=== PATIENT | female | born 1995 | race Caucasian/White ===

== ENCOUNTER 2016-09-10 17:46 | Emergency (ER) | payer OTHER ==
[2016-09-10] MEDS ORDERED: Ketorolac INJ* 60 MG/2 ML VIAL IM ONE (21:07)
[2016-09-10] MEDS ORDERED: Ondansetron ODT TAB* 4 MG SL ONE (21:07)
--- NOTE | 2016-09-10 21:31 | ED ---
Patrick Bearden Benjamin, scribed for Yony John MD on 09/10/16 at 2110 . Headache - HPI Summary HPI Summary: 20yo female c/o having migraine CAMPBELL for 3 days. States that light bothers her. Pt also reports intermittent blurry vision, N/V, and neck pain throughout the day. Pt is still nauseous. Last visit to her PCP was 1 month ago. Pt tried various OTC pain meds, but none has helped with her CAMPBELL. - History Of Current Complaint Chief Complaint: EDHeadache Stated Complaint: HEADACHE/VOMITING/LIGHT HEADED Time Seen by Provider: 09/10/16 21:04 Hx Obtained From: Patient Hx Last Menstrual Period: 10/23/13 Onset/Duration: Gradual Onset - 3 days, Started days ago - 3 days, Still Present Initially Headache Was: Moderate Currently Pain Is: Moderate Timing: Constant Character: Migraine Location of Headache: Diffuse Aggravating Factor: Bright Lights Allevating Factors: Nothing Associated Signs And Symptoms: Nausea, Vomiting, Neck Pain - Allergies/Home Medications Allergies/Adverse Reactions: Allergies Allergy/AdvReac Type Severity Reaction Status Date / Time No Known Allergies Allergy Verified 12/17/14 08:03 PMH/Surg Hx/FS Hx/Imm Hx Endocrine/Hematology History: Reports: Hx Anemia - ON IRON 04/24/12 DELIVERED BABY Denies: Hx Diabetes, Hx Thyroid Disease Cardiovascular History: Denies: Hx Hypertension Respiratory History: Reports: Hx Asthma Denies: Hx Chronic Obstructive Pulmonary Disease (COPD) GI History: Reports: Hx Gastroesophageal Reflux Disease - [place] SINCE PREVACID Denies: Hx Ulcer History: Reports: Other Problems/Disorders - recurrent uti's Sensory History: Denies: Hx Contacts or Glasses, Hx Hearing Aid Opthamlomology History: Denies: Hx Contacts or Glasses Psychiatric History: Denies: Hx Eating Disorder, Hx of Violent Episodes Against Others - Surgical History Surgery Procedure, Year, and Place: Cholecystectomy 05/2012 Hx Anesthesia Reactions: No Infectious Disease History: No Infectious Disease History: Denies: Hx Clostridium Difficile, Hx Hepatitis, Hx Human Immunodeficiency Virus (HIV), Hx of Known/Suspected MRSA, Hx Tuberculosis, Hx Known/Suspected VRE , Hx Known/Suspected VRSA, History Other Infectious Disease, Traveled Outside the [place] in Last 30 Days - Family History Known Family History: Positive: Other - anemia Negative: Cardiac Disease, Hypertension, Diabetes - Social History Occupation: Employed Full-time Lives: Alone Alcohol Use: Occasionally Substance Use Type: Reports: None Smoking Status (MU): Never Smoked Tobacco Type: Cigarettes Amount Used/How Often: 1/2 PPD Have You Smoked in the Last Year: No Review of Systems Constitutional: Negative Positive: Photophobia, Blurred Vision ENT: Negative Cardiovascular: Negative Respiratory: Negative Positive: Vomiting, Nausea Genitourinary: Negative Musculoskeletal: Negative Skin: Negative Neurological: Negative Psychological: Normal All Other Systems Reviewed And Are Negative: Yes Physical Exam Triage Information Reviewed: Yes Vital Signs On Initial Exam: Initial Vitals Temp Pulse Resp BP Pulse Ox 97.3 F 72 20 146/78 100 09/10/16 18:00 09/10/16 18:00 09/10/16 18:00 09/10/16 18:00 09/10/16 18:00 Vital Signs Reviewed: Yes Appearance: Positive: Well-Appearing, No Pain Distress Skin: Positive: Warm Head/Face: Positive: Normal Head/Face Inspection Eyes: Positive: EOMI, GOYO ENT: Positive: Hearing grossly normal Neck: Positive: Supple Respiratory/Lung Sounds: Positive: Clear to Auscultation, Breath Sounds Present Cardiovascular: Positive: RRR Abdomen Description: Positive: Nontender, Soft Bowel Sounds: Positive: Present Musculoskeletal: Positive: Strength/ROM Intact Neurological: Positive: Sensory/Motor Intact, Alert, Oriented to Person Place, Time, Normal Gait Psychiatric: Positive: Affect/Mood Appropriate Diagnostics - Vital Signs Vital Signs Temp Pulse Resp BP Pulse Ox 09/10/16 19:09 97.2 F 92 16 123/81 98 09/10/16 19:03 98.2 F 67 20 96/58 97 09/10/16 18:02 97.0 F 87 20 146/78 100 09/10/16 18:00 97.3 F 72 20 146/78 100 - Laboratory Lab Statement: Any lab studies that have been ordered have been reviewed, and results considered in the medical decision making process. Re-Evaluation - Re-Evaluation First Eval Change: Improved Headache Course/Dx - Diagnoses Provider Diagnoses: Headache Discharge - Discharge Plan Condition: Improved Disposition: HOME Patient Education Materials: Migraine Headache (ED) Forms: *Work Release Referrals: Ras Abreu MD [Primary Care Provider] - 1 Day The documentation as recorded by the Patrick ray Benjamin accurately reflects the service I personally performed and the decisions made by me, Yony John MD.
[2016-09-10] MEDS ORDERED: Morphine INJ* 4 MG/ML 1 ML SYRINGE SUBCUT ONE (22:40)
[2016-09-11 00:10] VITALS: BP 110/60
== END 2016-09-10 23:35 | disposition home or self-care (01) ==
LOC: ED 17:46
DX: R51 Headache (principal); R11.2 Nausea with vomiting, unspecified; M54.2 Cervicalgia
CPT/HCPCS: 96372; 99282; A9270-GY; J1885; J2270

== ENCOUNTER 2016-12-20 18:02 | Emergency (ER) | payer OTHER ==
[2016-12-20] MEDS ORDERED: Ibuprofen TAB* 600 MG PO ONE (18:21)
--- NOTE | 2016-12-20 19:26 | RAD ---
Indication: Left forearm pain. 2 views of left forearm demonstrates ulnar minus.. No fracture is noted. IMPRESSION: No fracture of the left forearm is noted.
--- NOTE | 2016-12-20 19:27 | RAD ---
Indication: Left arm injury. 2 views of left humerus demonstrates no fracture. No other bone or joint abnormalities identified. IMPRESSION: No fracture of the left humerus is present.
[2016-12-20] MEDS ORDERED: Bacitracin OINTMENT* 1 TUBE TOPICAL ONE (19:42)
[2016-12-20] MEDS ORDERED: oxyCODONE/Acetamin 5/325 MG* TAB PO ONE (19:42)
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
[2016-12-20 20:51] VITALS: BP 116/72
== END 2016-12-20 20:45 | disposition home or self-care (01) ==
LOC: ED 18:02
DX: S50.812A Abrasion of left forearm, initial encounter (principal); V49.9XXA Car occupant (driver) (passenger) injured in unspecified traffic accident, initial encounter; Y93.9 Activity, unspecified; Y92.9 Unspecified place or not applicable
CPT/HCPCS: 99283; A9270-GY

== ENCOUNTER 2017-04-08 23:55 | Emergency (ER) | payer OTHER ==
[2017-04-09] MEDS ORDERED: Amoxicillin/Clavulanate TAB* 500 MG PO ONE (01:42)
--- NOTE | 2017-04-09 01:44 | ED ---
Throat Pain/Nasal Congestion - HPI Summary HPI Summary: 21F presents with dental pain today. She has been having issues with her right wisdom tooth off and on for a couple weeks. She is suppose to have it extracted on 04/19 in [place]. She states the pain became 10/10 tonight and she tried ibuprofen and Tylenol without relief. She is worried that the area may be getting infected. She denies any drainage from area. She denies any fever. She denies any sore throat, SOB, or chest pain. - History of Current Complaint Chief Complaint: EDDentalPain Time Seen by Provider: 04/09/17 01:27 - Allergies/Home Medications Allergies/Adverse Reactions: Allergies Allergy/AdvReac Type Severity Reaction Status Date / Time No Known Allergies Allergy Verified 04/09/17 00:13 PMH/Surg Hx/FS Hx/Imm Hx Endocrine/Hematology History: Reports: Hx Anemia - ON IRON 04/24/12 DELIVERED BABY Denies: Hx Diabetes, Hx Thyroid Disease Cardiovascular History: Denies: Hx Hypertension Respiratory History: Reports: Hx Asthma Denies: Hx Chronic Obstructive Pulmonary Disease (COPD) GI History: Reports: Hx Gastroesophageal Reflux Disease - [place] SINCE PREVACID Denies: Hx Ulcer History: Reports: Other Problems/Disorders - recurrent uti's Sensory History: Denies: Hx Contacts or Glasses, Hx Hearing Aid Opthamlomology History: Denies: Hx Contacts or Glasses Psychiatric History: Denies: Hx Eating Disorder, Hx of Violent Episodes Against Others - Surgical History Surgery Procedure, Year, and Place: Cholecystectomy 05/2012 Hx Anesthesia Reactions: No - Immunization History Date of Tetanus Vaccine: 2012 Infectious Disease History: No Infectious Disease History: Denies: Hx Clostridium Difficile, Hx Hepatitis, Hx Human Immunodeficiency Virus (HIV), Hx of Known/Suspected MRSA, Hx Tuberculosis, Hx Known/Suspected VRE , Hx Known/Suspected VRSA, History Other Infectious Disease, Traveled Outside the [place] in Last 30 Days - Family History Known Family History: Positive: Other - anemia Negative: Cardiac Disease, Hypertension, Diabetes - Social History Alcohol Use: Occasionally Substance Use Type: Reports: Marijuana Substance Use Comment - Amount & Last Used: not recently Smoking Status (MU): Former Smoker Type: Cigarettes Amount Used/How Often: 1/2 PPD Have You Smoked in the Last Year: No Review of Systems Negative: Fever Positive: Dental Pain Negative: Chest Pain Negative: Shortness Of Breath All Other Systems Reviewed And Are Negative: Yes Physical Exam Triage Information Reviewed: Yes Vital Signs On Initial Exam: Initial Vitals Temp Pulse Resp BP Pulse Ox 97.9 F 95 16 131/76 98 04/09/17 00:05 04/09/17 00:05 04/09/17 00:05 04/09/17 00:05 04/09/17 00:05 Vital Signs Reviewed: Yes Appearance: Positive: Well-Appearing Skin: Positive: Warm, Dry Head/Face: Positive: Normal Head/Face Inspection Eyes: Positive: Normal, EOMI, GOYO, Conjunctiva Clear ENT: Positive: Normal ENT inspection, Pharynx normal, TMs normal Dental: Positive: Percussion Tenderness @ - 32. Negative: Gross Decay/Caries @ , Abscess @ Respiratory/Lung Sounds: Positive: Clear to Auscultation, Breath Sounds Present Cardiovascular: Positive: Normal, RRR Musculoskeletal: Positive: Normal Neurological: Positive: Normal Psychiatric: Positive: Normal Diagnostics - Vital Signs Vital Signs Temp Pulse Resp BP Pulse Ox 04/09/17 00:05 97.9 F 95 16 131/76 98 - Laboratory Lab Statement: Any lab studies that have been ordered have been reviewed, and results considered in the medical decision making process. EENT Course/Dx - Course Course Of Treatment: 21F presents with dental pain today. She has been having issues with her right wisdom tooth off and on for a couple weeks. She is suppose to have it extracted on 04/19 in [place]. She states the pain became 10 /10 tonight and she tried ibuprofen and Tylenol without relief. She is worried that the area may be getting infected. She denies any drainage from area. She denies any fever. She denies any sore throat, SOB, or chest pain. on exam has tenderness at 32. no lymphadenopathy. will place on augmentin for potential infection and will give short script of narcotic. patient understand and agrees with plan. - Differential Diagnoses Differential Diagnoses: Dental Abscess, Dental Caries, Fractured Tooth - Diagnoses Provider Diagnoses: Dental infection Discharge - Discharge Plan Condition: Good Disposition: HOME Prescriptions: Amoxicillin/Clavulanate TAB* [Augmentin TAB 500 mg*] 500 mg PO BID #19 tab oxyCODONE/Acetamin 5/325 MG* [Percocet 5/325 TAB*] 1 tab PO Q6H PRN #6 tab MDD 4 PRN Reason: Pain Patient Education Materials: Toothache (ED) Referrals: Ras Abreu MD [Primary Care Provider] - Additional Instructions: Call dentist tomorrow to inform of visit and antibiotic usage Take antibiotic twice a day Take ibuprofen or Tylenol for pain every 6 hours, use narcotic for break through pain Return to ED if develop any new or worsening symptoms Images - Images Dental: 1 - pain
[2017-04-09] MEDS ORDERED: oxyCODONE/Acetamin 5/325 MG* TAB PO ONE (01:46)
[2017-04-09 02:13] VITALS: BP 137/83
== END 2017-04-09 02:10 | disposition home or self-care (01) ==
LOC: ED 23:55
DX: K04.7 Periapical abscess without sinus (principal); K08.89 Other specified disorders of teeth and supporting structures; Z87.891 Personal history of nicotine dependence
CPT/HCPCS: 99282; A9270-GY

== ENCOUNTER 2017-06-17 13:29 | Emergency (ER) | payer OTHER ==
[2017-06-17 14:11] VITALS: BP 123/82
--- NOTE | 2017-06-17 14:52 | UC ---
Rashid Bearden Angela, scribed for Cameron Castaneda MD on 06/17/17 at 1418 . General HPI - HPI Summary HPI Summary: This pt is a 21 y/o female presenting to [facility] c/o nasal congestion and sinus pain for the last 15 days. Pt reports that she has had runny nose with green discharge and intermittent fevers for the last 15 days. She states her symptoms have been worsening so she decided to come to the ED. PMHx: asthma. Pt denies tobacco use but does use alcohol occasionally. - History of Current Complaint Chief Complaint: UCGeneralIllness Stated Complaint: COUGH,CONGESTED Time Seen by Provider: 06/17/17 14:12 Hx Obtained From: Patient Hx Last Menstrual Period: 06/17/17 Onset/Duration: Gradual Onset, Lasting Days, Still Present Timing: Constant Current Severity: Severe Pain Intensity: 7 Pain Location at: sinus Aggravating: nothing Alleviating: nothing Associated Signs & Symptoms: Positive: Fever - intermittent, Other - POS: runny nose, sinus pain, nasal congestion. Negative: Abdominal Pain, Chest Pain, SOB - Allergy/Home Medications Allergies/Adverse Reactions: Allergies Allergy/AdvReac Type Severity Reaction Status Date / Time No Known Allergies Allergy Verified 06/17/17 14:06 Home Medications: Home Medications D-Methorphan/PE/Acetaminophen [Vicks Dayquil Liquid] 30 ml PO Q6HR PRN 06/17/17 [History Confirmed 06/17/17] PMH/Surg Hx/FS Hx/Imm Hx Other Endocrine History: DENIES: diabetes Other Cardiovascular History: DENIES: HTN Respiratory History: Asthma - Surgical History Surgical History: Yes Surgery Procedure, Year, and Place: Cholecystectomy 05/2012 - Family History Known Family History: Positive: Other - anemia Negative: Cardiac Disease, Hypertension, Diabetes - Social History Alcohol Use: Occasionally Substance Use Type: None Substance Use Comment - Amount & Last Used: not recently Smoking Status (MU): Former Smoker Type: Cigarettes Amount Used/How Often: 1/2 PPD Have You Smoked in the Last Year: No Household Exposure Type: Cigarettes - Immunization History Most Recent Influenza Vaccination: out of stock in hospital Most Recent Tetanus Shot: up to date Most Recent Pneumonia Vaccination: declined Vaccination Up to Date: Yes Review of Systems Constitutional: Fever - intermittent Skin: Negative Eyes: Negative ENT: Nasal Discharge, Sinus Congestion, Sinus Pain/Tenderness Respiratory: Negative Cardiovascular: Negative Gastrointestinal: Negative Genitourinary: Negative Motor: Negative Neurovascular: Negative Musculoskeletal: Negative Neurological: Negative Psychological: Negative Is Patient Immunocompromised?: No All Other Systems Reviewed And Are Negative: Yes Physical Exam - Summary Physical Exam Summary: VITAL SIGNS: Reviewed. GENERAL: Patient is a well-developed and nourished female who is lying comfortable in the stretcher. Patient is not in any acute respiratory distress. HEAD AND FACE: Normocephalic. Pt has runny nose with yellow discharge. There is positive maxillary sinus tenderness, especially in the right maxillary sinus. Positive nasal congestion. EYES: PERRLA, EOMI x 2. EARS: Hearing grossly intact. MOUTH: Oropharynx within normal limits. NECK: Supple, trachea is midline, no adenopathy, no JVD, no carotid bruit. CHEST: Symmetric, no tenderness at palpation LUNGS: Clear to auscultation bilaterally. No wheezing or crackles. CVS: Regular rate and rhythm, S1 and S2 present, no murmurs or gallops appreciated. ABDOMEN: Soft, non-tender. Bowel sounds are normal. No abdominal abnormal pulsations. EXTREMITIES: Full ROM in all major joints, no edema, no cyanosis or clubbing. NEURO: Alert and oriented x 3. No acute neurological deficits. Speech is normal and follows commands. SKIN: Dry and warm Triage Information Reviewed: Yes Vital Signs: Initial Vital Signs Temp 97.1 F 06/17/17 14:07 Pulse 98 06/17/17 14:07 Resp 18 06/17/17 14:07 BP 123/82 06/17/17 14:07 Pulse Ox 99 06/17/17 14:07 Vital Signs Reviewed: Yes Course/Dx - Course Course Of Treatment: This pt is a 21 y/o female presenting to [facility] c/o nasal congestion and sinus pain for the last 15 days. Pt reports that she has had runny nose with green discharge and intermittent fevers for the last 15 days. She states her symptoms have been worsening so she decided to come to the ED. PMHx: asthma. Pt denies tobacco use but does use alcohol occasionally. I discussed all the findings and test results with the patient. Pt was instructed to return to the urgent care or go to ER immediately if any of the symptoms return or worsens. Plan of care was discussed with the patient and pt understands and agrees. All questions were answered to patient satisfaction. There were no further complaints or concerns. Pt will be discharged to home with follow up from PCP. She will be givena prescription for Augmentin and Flonase. Pt is hemodynamically stable, alert and oriented x3. - Differential Dx - Multi-Symptom Provider Diagnoses: Sinusitis Discharge - Sign-Out/Discharge Documenting (check all that apply): Discharge - Discharge Plan Condition: Stable Disposition: HOME Prescriptions: Amoxicillin/Clavulanate TAB* [Augmentin TAB 875*] 875 mg PO BID #20 tab Fluticasone NASAL SPRAY 50MCG* [Flonase NASAL SPRAY 50MCG*] 2 spray BOTH NARES DAILY #1 btl Patient Education Materials: Sinusitis (ED) Referrals: Ras Abreu MD [Primary Care Provider] - Additional Instructions: FOLLOW UP WITH YOUR PRIMARY CARE PROVIDER WITHIN ONE WEEK FOR HIGH BLOOD PRESSURE NOTED TODAY. RETURN TO URGENT CARE OR THE ED FOR ANY WORSENING OR NEW SYMPTOMS. The documentation as recorded by the Rashid ray Angela accurately reflects the service I personally performed and the decisions made by Leonel shell Walter, MD.
== END 2017-06-17 14:24 | disposition home or self-care (01) ==
LOC: UCEAST 13:29
DX: J32.9 Chronic sinusitis, unspecified (principal); Z87.891 Personal history of nicotine dependence
CPT/HCPCS: 99212; G0463

== ENCOUNTER 2017-08-23 09:59 | Emergency (ER) | payer OTHER ==
[2017-08-23] MEDS ORDERED: Metoclopramide IV* 5 MG/ML 2 ML VIAL IV ONE (11:00)
[2017-08-23] MEDS ORDERED: NS 0.9% 1000 ML* 1,000 ML IV ONE (11:00)
[2017-08-23 11:37] LABS: Hematocrit 38 % (35-47); Hemoglobin 12.4 g/dl (12.0-16.0); Mean Corpuscular HGB Conc 32 g/dl (31-36); Mean Corpuscular Hemoglobin 24 pg (27-31); Mean Corpuscular Volume 74 fL (80-97); Mean Platelet Volume 8.3 um3 (7.4-10.4); Platelet Count 203 10^3/ul (150-450); Red Cell Distribution Width 16 % (10.5-15); White Blood Count 9.6 10^3/ul (3.5-10.8)
[2017-08-23 11:52] LABS: EGFR Non-African American 117.1 (>60)
[2017-08-23 12:01] LABS: ABS Basophils 0 10^3/ul (0-0.2); ABS Eosinophils 0 10^3/ul (0-0.6); ABS Lymphocytes 1.1 10^3/ul (1.0-4.8); ABS Monocytes 0.3 10^3/ul (0-0.8); ABS Neutrophils 8.1 10^3/ul (1.5-7.7); ABS Nucleated RBC 0 10^3/ul; Eosinophil % 0.4 % (0-6); Lymphocyte % 11.2 % (25-47); Nucleated Red Blood Cells % 0
--- NOTE | 2017-08-23 12:11 | ED ---
- HPI Summary HPI Summary: Patient is a with 2 living children 29-year-old female who is 10 weeks presenting to the ED with nausea, vomiting, diarrhea 2 days. She states her other children have the stomach bug with similar symptoms. She has taken at home Zofran without relief. She states she is unable to eat or drink without vomiting. Denies hematemesis. Denies any abdominal pain, vaginal discharge, bleeding, back pain or UTI symptoms. Diarrhea is approximately 1-2 times daily over the past 2 days and is watery stool. Vomiting is several times per day after trying to eat or drink. - History of Current Complaint Chief Complaint: EDNauseaVomitDiarrh Stated Complaint: N/V/D/HEADACHE/ Time Seen by Provider: 08/23/17 10:59 Hx Obtained From: Patient Onset/Duration: Started Hours Ago Timing: Constant Severity: Moderate Current Severity: Moderate Pain Intensity: 7 Location of Pain: None Character: None Associated Signs and Symptoms: Positive: Negative - Assessment Hx Now: No SAB: 2 IEA: 0 - Additional Pertinent History Maternal Blood Type and Rh: O Positive - Allergies/Home Medications Allergies/Adverse Reactions: Allergies Allergy/AdvReac Type Severity Reaction Status Date / Time No Known Allergies Allergy Verified 08/23/17 10:03 Home Medications: Home Medications Vitamin TAB* 1 tab PO DAILY 08/23/17 [History Confirmed 08/23/17] PMH/Surg Hx/FS Hx/Imm Hx Previously Healthy: Yes Endocrine/Hematology History: Reports: Hx Anemia - ON IRON 04/24/12 DELIVERED BABY Denies: Hx Diabetes, Hx Thyroid Disease Cardiovascular History: Denies: Hx Hypertension Respiratory History: Reports: Hx Asthma Denies: Hx Chronic Obstructive Pulmonary Disease (COPD) GI History: Reports: Hx Gastroesophageal Reflux Disease - [place] SINCE PREVACID Denies: Hx Ulcer History: Reports: Other Problems/Disorders - recurrent uti's Sensory History: Denies: Hx Contacts or Glasses, Hx Hearing Aid Opthamlomology History: Denies: Hx Contacts or Glasses Psychiatric History: Denies: Hx Eating Disorder, Hx of Violent Episodes Against Others - Surgical History Surgery Procedure, Year, and Place: Cholecystectomy 05/2012 Hx Anesthesia Reactions: No - Immunization History Date of Tetanus Vaccine: 2012 Hx Pertussis Vaccination: No Immunizations Up to Date: Unable to Obtain/Confirm Infectious Disease History: No Infectious Disease History: Denies: Hx Clostridium Difficile, Hx Hepatitis, Hx Human Immunodeficiency Virus (HIV), Hx of Known/Suspected MRSA, Hx Tuberculosis, Hx Known/Suspected VRE , Hx Known/Suspected VRSA, History Other Infectious Disease, Traveled Outside the [place] in Last 30 Days - Family History Known Family History: Positive: Other - anemia Negative: Cardiac Disease, Hypertension, Diabetes - Social History Occupation: Unemployed Lives: With Family Alcohol Use: Occasionally Hx Substance Use: No Substance Use Type: Reports: None Substance Use Comment - Amount & Last Used: not recently Hx Tobacco Use: Yes Smoking Status (MU): Former Smoker Type: Cigarettes Amount Used/How Often: 1/2 PPD Have You Smoked in the Last Year: No Review of Systems Constitutional: Negative Negative: Fever, Chills, Fatigue, Skin Diaphoresis Cardiovascular: Negative Respiratory: Negative Positive: Vomiting, Diarrhea, Nausea. Negative: Abdominal Pain Genitourinary: Negative Positive: no symptoms reported, see HPI Musculoskeletal: Negative Skin: Negative Neurological: Negative All Other Systems Reviewed And Are Negative: Yes Physical Exam - Physical Exam Triage Information Reviewed: Yes Vital Signs Reviewed: Yes Appearance: Positive: Well-Appearing, Well-Nourished Skin: Positive: Warm, Skin Color Reflects Adequate Perfusion Head/Face: Positive: Normal Head/Face Inspection Eyes: Positive: EOMI, GOYO, Conjunctiva Clear Neck: Positive: Supple Respiratory/Lung Sounds: Positive: Clear to Auscultation, Breath Sounds Present Cardiovascular: Positive: Normal, RRR, Pulses are Symmetrical in both Upper and Lower Extremities Abdomen Description: Positive: Nontender, No Organomegaly, Soft Bowel Sounds: Positive: Present Musculoskeletal: Positive: Normal, Strength/ROM Intact Neurological: Positive: Sensory/Motor Intact, Alert, Oriented to Person Place, Time, Speech Normal Psychiatric: Positive: Normal, Affect/Mood Appropriate - Car[place] Coma Scale Eye: 4 - Spontaneous - Vaginal Assessment Presentation Comment: No exam indicated or requested by [facility] Diagnostics - Vital Signs Vital Signs Temp Pulse Resp BP Pulse Ox 08/23/17 11:37 102/56 08/23/17 11:02 66 99 08/23/17 11:01 69 121/70 98 08/23/17 10:04 97.1 F 86 16 108/72 99 - Laboratory Lab Results: Lab Results 08/23/17 08/23/17 08/23/17 Range/Units 11:13 11:13 11:13 WBC 9.6 (3.5-10.8) 10^3/ul RBC 5.20 (4.0-5.4) 10^6/ul Hgb 12.4 (12.0-16.0) g/dl Hct 38 (35-47) % MCV 74 L (80-97) fL MCH 24 L (27-31) pg MCHC 32 (31-36) g/dl RDW 16 H (10.5-15) % Plt Count 203 (150-450) 10^3/ul MPV 8.3 (7.4-10.4) um3 Neut % (Auto) 84.6 H (38-83) % Lymph % (Auto) 11.2 L (25-47) % [place] % (Auto) 3.3 (0-7) % Eos % (Auto) 0.4 (0-6) % Baso % (Auto) 0.5 (0-2) % Absolute Neuts (auto) 8.1 H (1.5-7.7) 10^3/ul Absolute Lymphs (auto) 1.1 (1.0-4.8) 10^3/ul Absolute Monos (auto) 0.3 (0-0.8) 10^3/ul Absolute Eos (auto) 0 (0-0.6) 10^3/ul Absolute Basos (auto) 0 (0-0.2) 10^3/ul Absolute Nucleated RBC 0 10^3/ul Nucleated RBC % 0 Sodium 133 L (139-145) mmol/L Potassium 3.8 (3.5-5.0) mmol/L Chloride 103 (101-111) mmol/L Carbon Dioxide 23 (22-32) mmol/L Anion Gap 7 (2-11) mmol/L BUN 6 (6-24) mg/dL Creatinine 0.64 (0.51-0.95) mg/dL Est GFR ( Amer) 150.6 (>60) Est GFR (Non-Af Amer) 117.1 (>60) BUN/Creatinine Ratio 9.4 (8-20) Glucose 93 (70-100) mg/dL Lactic Acid 0.9 (0.5-2.0) mmol/L Calcium 9.0 (8.6-10.3) mg/dL Total Bilirubin 0.40 (0.2-1.0) mg/dL AST 11 L (13-39) U/L ALT 10 (7-52) U/L Alkaline Phosphatase 74 (34-104) U/L Total Protein 7.6 (6.4-8.9) g/dL Albumin 4.0 (3.2-5.2) g/dL Globulin 3.6 (2-4) g/dL Albumin/Globulin Ratio 1.1 (1-3) Beta HCG, Quant Pending Result Diagrams: 08/23/17 11:13 08/23/17 11:13 Lab Statement: Any lab studies that have been ordered have been reviewed, and results considered in the medical decision making process. Course/Dx - Course Course Of Treatment: During the course treatment, the patient is given Reglan 10 mg IV and fluids. Labs obtained which are unremarkable. She states she feels better after fluids and Reglan and will be discharged home with prescriptions for Reglan and Zofran. She will follow-up with [facility]. - Diagnoses Provider Diagnoses: Nausea & vomiting Discharge - Sign-Out/Discharge Documenting (check all that apply): Discharge/Admit/Transfer - Discharge Plan Condition: Stable Disposition: HOME Prescriptions: Metoclopramide TAB* [Reglan TAB*] 10 mg PO Q6H PRN #15 tab PRN Reason: Nausea Ondansetron ODT TAB* [Zofran 4 MG Odt TAB*] 4 mg PO Q6H PRN #12 tab.odt MDD 4 PRN Reason: Nausea Patient Education Materials: Nausea and Vomiting in (ED) Referrals: Ras Abreu MD [Primary Care Provider] - Additional Instructions: Relgan up to four times daily as needed for nausea/vomiting in For symptoms not well controlled with reglan, take zofran as prescribed For any worsening symptoms - follow up with your OBGYN - Billing Disposition and Condition Condition: STABLE Disposition: HOME
[2017-08-23 13:08] VITALS: BP 109/67
== END 2017-08-23 13:06 | disposition home or self-care (01) ==
LOC: ED 09:59
DX: O21.0 Mild hyperemesis gravidarum (principal); Z3A.10 10 weeks gestation of pregnancy; D64.9 Anemia, unspecified; J45.909 Unspecified asthma, uncomplicated; K21.9 Gastro-esophageal reflux disease without esophagitis; Z90.49 Acquired absence of other specified parts of digestive tract; Z87.891 Personal history of nicotine dependence
CPT/HCPCS: 36415; 80053; 83605; 84702; 85025; 96374; 99282; J2765

== ENCOUNTER 2017-09-23 09:39 | Emergency (ER) | payer OTHER ==
[2017-09-23] MEDS ORDERED: diPHENhydraMINE IV* 50 MG/ML 1 ml VIAL (BENADRYL) IV ONE (09:53)
[2017-09-23] MEDS ORDERED: NS 0.9% 1000 ML* 1,000 ML IV ONE (09:53)
[2017-09-23] MEDS ORDERED: Metoclopramide IV* 5 MG/ML 2 ML VIAL IV SLOW PU ONE (09:53)
--- NOTE | 2017-09-23 10:14 | ED ---
GI/ HPI - HPI Summary HPI Summary: 21F at 14 weeks presents with nausea vomiting diarrhea for the past 3 days. She states that her children have been diagnosed with [id number]-kbli-[id number]- mouth. She states he's been having fevers. She's been taking cold medication. She has been having headaches that she has been taking excerdrin for. She has history of headaches and states that this is unchanged from previous headaches. States she is dizzy when she stands up quickly. She's not able to keep anything down. She has tried Reglan. States she her morning sickness had resolved prior to this and she does not believe it is morning sickness. No vaginal discharge. No abdominal pain. No chest pain shortness breath. No sore throat. No rash on the body. Has no medical conditions. - History of Current Complaint Chief Complaint: EDNauseaVomitDiarrh Time Seen by Provider: 09/23/17 09:52 Stated Complaint: VOMITING/14WKS PREG Hx Last Menstrual Period: 06/17/17 Pain Intensity: 5 - Allergy/Home Medications Allergies/Adverse Reactions: Allergies Allergy/AdvReac Type Severity Reaction Status Date / Time No Known Allergies Allergy Verified 08/23/17 10:03 Home Medications: Home Medications Ferrous Gluconate [Iron] 50 mg PO DAILY 09/23/17 [History Confirmed 09/23/17] Vitamin TAB* 1 tab PO DAILY 09/23/17 [History Confirmed 09/23/17] PMH/Surg Hx/FS Hx/Imm Hx Endocrine/Hematology History: Reports: Hx Anemia - ON IRON 04/24/12 DELIVERED BABY Denies: Hx Diabetes, Hx Thyroid Disease Cardiovascular History: Denies: Hx Hypertension Respiratory History: Reports: Hx Asthma Denies: Hx Chronic Obstructive Pulmonary Disease (COPD) GI History: Reports: Hx Gastroesophageal Reflux Disease - [place] SINCE PREVACID Denies: Hx Ulcer History: Reports: Other Problems/Disorders - recurrent uti's Sensory History: Denies: Hx Contacts or Glasses, Hx Hearing Aid Opthamlomology History: Denies: Hx Contacts or Glasses Psychiatric History: Denies: Hx Eating Disorder, Hx of Violent Episodes Against Others - Surgical History Surgery Procedure, Year, and Place: Cholecystectomy 05/2012 Hx Anesthesia Reactions: No - Immunization History Date of Tetanus Vaccine: 2012 Infectious Disease History: No Infectious Disease History: Denies: Hx Clostridium Difficile, Hx Hepatitis, Hx Human Immunodeficiency Virus (HIV), Hx of Known/Suspected MRSA, Hx Tuberculosis, Hx Known/Suspected VRE , Hx Known/Suspected VRSA, History Other Infectious Disease, Traveled Outside the [place] in Last 30 Days - Family History Known Family History: Positive: Other - anemia Negative: Cardiac Disease, Hypertension, Diabetes - Social History Alcohol Use: Occasionally Hx Substance Use: No Substance Use Type: Reports: None Substance Use Comment - Amount & Last Used: not recently Hx Tobacco Use: Yes Smoking Status (MU): Former Smoker Type: Cigarettes Amount Used/How Often: 1/2 PPD Have You Smoked in the Last Year: No Review of Systems Positive: Fever Negative: Chest Pain Negative: Shortness Of Breath Positive: Vomiting, Diarrhea, Nausea. Negative: Abdominal Pain All Other Systems Reviewed And Are Negative: Yes Physical Exam Triage Information Reviewed: Yes Vital Signs On Initial Exam: Initial Vitals Temp Pulse Resp BP Pulse Ox 98.2 F 87 16 118/69 98 09/23/17 09:47 09/23/17 09:47 09/23/17 09:47 09/23/17 09:47 09/23/17 09:47 Vital Signs Reviewed: Yes Appearance: Positive: Well-Appearing Skin: Positive: Warm, Dry Head/Face: Positive: Normal Head/Face Inspection Eyes: Positive: Normal, EOMI, GOYO, Conjunctiva Clear ENT: Positive: Normal ENT inspection, Pharynx normal, TMs normal Respiratory/Lung Sounds: Positive: Clear to Auscultation, Breath Sounds Present Cardiovascular: Positive: Normal, RRR Abdomen Description: Positive: Nontender, Soft Bowel Sounds: Positive: Present Musculoskeletal: Positive: Normal Neurological: Positive: Normal Psychiatric: Positive: Normal Diagnostics - Vital Signs Vital Signs Temp Pulse Resp BP Pulse Ox 09/23/17 09:47 98.2 F 87 16 118/69 98 - Laboratory Result Diagrams: 09/23/17 10:05 09/23/17 10:05 Lab Statement: Any lab studies that have been ordered have been reviewed, and results considered in the medical decision making process. Re-Evaluation - Re-Evaluation First Eval Re-Evaluation Time: 12:27 Change: Improved Comment: hungry now GIGU Course/Dx - Course Course Of Treatment: 21F at 14 weeks presents with nausea vomiting diarrhea for the past 3 days. She states that her children have been diagnosed with [id number]-sjjw-[id number]-mouth. She states he's been having fevers. She's been taking cold medication. She has been having headaches that she has been taking excerdrin for. She has history of headaches and states that this is unchanged from previous headaches. States she is dizzy when she stands up quickly. She' s not able to keep anything down. She has tried Reglan. States she her morning sickness had resolved prior to this and she does not believe it is morning sickness. No vaginal discharge. No abdominal pain. No chest pain shortness breath. No sore throat. No rash on the body. Has no medical conditions. On exam lungs clear to auscultation. Nontender abdomen. white blood cell count normal. hr 150-160s. electrolyes normal.gave fluids and reglan and feeling better. will discharge with reglan and zofran for intense vomiting. patient understand and agrees with plan. - Diagnoses Differential Diagnoses - Female: Gastroenteritis (Viral), Gastroenteritis ( Bacterial), Urinary Tract Infection, Vomiting Provider Diagnoses: , Nausea vomiting and diarrhea Discharge - Sign-Out/Discharge Documenting (check all that apply): Discharge/Admit/Transfer - Discharge Plan Condition: Good Disposition: HOME Prescriptions: Metoclopramide TAB* [Reglan TAB*] 5 mg PO Q6H #20 tab Ondansetron ODT TAB* [Zofran 4 MG Odt TAB*] 4 mg PO Q6H PRN #5 tab.odt PRN Reason: Nausea Patient Education Materials: Acute Nausea and Vomiting (ED) Referrals: Ras Abreu MD [Primary Care Provider] - Additional Instructions: Can take reglan every 6 hours as needed for nausea, use zofran every 6 hours sparingly Drink small amounts of fluid as tolerated When able to eat follow BRAT diet: Bananas, rice, applesauce, toast Take Tylenol for pain as needed every 6 hours Follow up with ob within 5 days Return to ED if develop fever that does not respond to Tylenol, severe abdominal pain, or any new or worsening symptoms - Billing Disposition and Condition Condition: GOOD Disposition: Home
[2017-09-23 10:21] LABS: ABS Basophils 0.1 10^3/ul (0-0.2); ABS Eosinophils 0 10^3/ul (0-0.6); ABS Lymphocytes 1.2 10^3/ul (1.0-4.8); ABS Monocytes 0.3 10^3/ul (0-0.8); ABS Neutrophils 6.5 10^3/ul (1.5-7.7); ABS Nucleated RBC 0 10^3/ul; Eosinophil % 0.4 % (0-6); Hematocrit 35 % (35-47); Hemoglobin 11.5 g/dl (12.0-16.0); Lymphocyte % 14.9 % (25-47); Mean Corpuscular HGB Conc 33 g/dl (31-36); Mean Corpuscular Hemoglobin 25 pg (27-31); Mean Corpuscular Volume 75 fL (80-97); Mean Platelet Volume 8.4 um3 (7.4-10.4); Nucleated Red Blood Cells % 0; Platelet Count 178 10^3/ul (150-450); Red Blood Count 4.67 10^6/ul (4.00-5.40); Red Cell Distribution Width 17 % (10.5-15); White Blood Count 8.1 10^3/ul (3.5-10.8)
[2017-09-23 10:37] LABS: EGFR Non-African American 123.8 (>60)
[2017-09-23 13:28] VITALS: BP 104/59
== END 2017-09-23 13:29 | disposition home or self-care (01) ==
LOC: ED 09:39
DX: O21.9 Vomiting of pregnancy, unspecified (principal); Z3A.14 14 weeks gestation of pregnancy; R11.2 Nausea with vomiting, unspecified; R19.7 Diarrhea, unspecified; Z87.891 Personal history of nicotine dependence
CPT/HCPCS: 36415; 80053; 83690; 83735; 85025; 86140; 96374; 96375; 99283; J1200; J2765

== ENCOUNTER 2017-10-18 11:34 | Emergency (ER) | payer OTHER ==
[2017-10-18 12:19] LABS: Urine Appearance Cloudy; Urine Blood Negative (Negative); Urine Color Amber; Urine Ketones Negative (Negative); Urine Protein 1+(30 mg/dL) (Negative); Urine Red Blood Cell 1+(3-5/hpf) (Absent); Urine Specific Gravity 1.023 (1.010-1.030); Urine Urobilinogen Negative (Negative); Urine White Blood Cell Trace(0-5/hpf) (Absent)
[2017-10-18] MEDS ORDERED: Acetaminophen TAB* 325 MG PO ONE (13:35)
[2017-10-18] MEDS ORDERED: NS 0.9% 1000 ML* 1,000 ML IV ONE ×2 (13:35→14:01)
--- NOTE | 2017-10-18 13:44 | ED ---
Abdominal Pain/Female - HPI Summary HPI Summary: This is flor Riojas documenting for attending Cameron Castaneda MD. This patient is a 21 year old F presenting to ED with a chief complaint of lower abdominal pain since 000 last night. The patient is 18 weeks . A2. The CC is described as cramping. The patient rates the pain 6/10 in severity for the CAMPBELL and 8/10 for the abdominal pain. Symptoms aggravated by nothing. Symptoms alleviated by nothing. Patient reports CAMPBELL (1 week, alleviated slightly since onset), nausea, vomiting, chills, diaphoresis, and light sensitivity. Patient denies vaginal bleeding, unusual vaginal discharge, diarrhea, constipation, fever, neck pain, blurred vision, and burning with urination. She sees the [facility]. - History of Current Complaint Chief Complaint: EDOBProblems Stated Complaint: ABD PAIN/HEADACHE Time Seen by Provider: 10/18/17 13:23 Hx Obtained From: Patient Hx Last Menstrual Period: 06/17/17 Onset/Duration: Sudden Onset, Lasting Hours - since 0000 last night Timing: Hours - since 0000 last night Severity Initially: Moderate Severity Currently: Moderate Pain Intensity: 6 Pain Scale Used: 0-10 Numeric - pain is for the CAMPBELL, 8/10 for the abdominal pain Location: Other - lower abdominal pain Character: Cramping Aggravating Factor(s): Nothing Alleviating Factor(s): Nothing Associated Signs and Symptoms: Positive: Other: - Patient reports CAMPBELL (1 week, alleviated slightly since onset), nausea, vomiting, chills, diaphoresis, and light sensitivity. Patient denies vaginal bleeding, unusual vaginal discharge, diarrhea, constipation, fever, neck pain, blurred vision, and burning with urination. Allergies/Adverse Reactions: Allergies Allergy/AdvReac Type Severity Reaction Status Date / Time No Known Allergies Allergy Verified 08/23/17 10:03 PMH/Surg Hx/FS Hx/Imm Hx Endocrine/Hematology History: Reports: Hx Anemia - ON IRON 04/24/12 DELIVERED BABY Denies: Hx Diabetes, Hx Thyroid Disease Cardiovascular History: Denies: Hx Hypertension Respiratory History: Reports: Hx Asthma Denies: Hx Chronic Obstructive Pulmonary Disease (COPD) GI History: Reports: Hx Gastroesophageal Reflux Disease - [place] SINCE PREVACID Denies: Hx Ulcer History: Reports: Other Problems/Disorders - recurrent uti's Sensory History: Denies: Hx Contacts or Glasses, Hx Hearing Aid Opthamlomology History: Denies: Hx Contacts or Glasses Psychiatric History: Denies: Hx Eating Disorder, Hx of Violent Episodes Against Others - Surgical History Surgery Procedure, Year, and Place: Cholecystectomy 05/2012 Hx Anesthesia Reactions: No - Immunization History Date of Tetanus Vaccine: 2012 Infectious Disease History: No Infectious Disease History: Denies: Hx Clostridium Difficile, Hx Hepatitis, Hx Human Immunodeficiency Virus (HIV), Hx of Known/Suspected MRSA, Hx Tuberculosis, Hx Known/Suspected VRE , Hx Known/Suspected VRSA, History Other Infectious Disease, Traveled Outside the [place] in Last 30 Days - Family History Known Family History: Positive: Other - anemia Negative: Cardiac Disease, Hypertension, Diabetes - Social History Alcohol Use: Occasionally Hx Substance Use: No Substance Use Type: Reports: None Substance Use Comment - Amount & Last Used: not recently Hx Tobacco Use: Yes Smoking Status (MU): Former Smoker Type: Cigarettes Amount Used/How Often: 1/2 PPD Have You Smoked in the Last Year: No Review of Systems Positive: Chills, Skin Diaphoresis. Negative: Fever Positive: Other - light sensitivity. Negative: Blurred Vision Positive: Other - denies neck pain Positive: Abdominal Pain - lower abdominal pain with cramping, Vomiting, Nausea , Other - denies constipation. Negative: Diarrhea Positive: other - denies vaginal bleeding or unusual vaginal discharge. Negative: burning Positive: Headache - 1 week, alleviated slightly since onset All Other Systems Reviewed And Are Negative: Yes Physical Exam - Summary Physical Exam Summary: VITAL SIGNS: Reviewed. GENERAL: Patient is a well-developed and nourished FEMALE who is lying comfortable in the stretcher. Patient is not in any acute respiratory distress. HEAD AND FACE: No signs of trauma. No ecchymosis, hematomas or skull depressions. No sinus tenderness. EYES: PERRLA, EOMI x 2, No injected conjunctiva, no nystagmus. EARS: Hearing grossly intact. Ear canals and tympanic membranes are within normal limits. MOUTH: Oropharynx within normal limits. NECK: Supple, trachea is midline, no adenopathy, no JVD, no carotid bruit, no c- spine tenderness, neck with full ROM. CHEST: Symmetric, no tenderness at palpation LUNGS: Clear to auscultation bilaterally. No wheezing or crackles. CVS: Regular rate and rhythm, S1 and S2 present, no murmurs or gallops appreciated. ABDOMEN: Soft, non-tender. Abdomen is distended. No rebound no guarding, and no masses palpated. Bowel sounds are normal. EXTREMITIES: FROM in all major joints, no edema, no cyanosis or clubbing. NEURO: Alert and oriented x 3. No acute neurological deficits. Speech is normal and follows commands. SKIN: Dry and warm Triage Information Reviewed: Yes Vital Signs On Initial Exam: Initial Vitals Temp Pulse Resp BP Pulse Ox 97.8 F 83 16 112/69 98 10/18/17 11:35 10/18/17 11:35 10/18/17 11:35 10/18/17 11:35 10/18/17 11:35 Vital Signs Reviewed: Yes Diagnostics - Vital Signs Vital Signs Temp Pulse Resp BP Pulse Ox 10/18/17 11:35 97.8 F 83 16 112/69 98 - Laboratory Lab Results: Lab Results 10/18/17 Range/Units 11:41 Urine Color Gail Urine Appearance Cloudy Urine pH 5.0 (5-9) Ur Specific [place] 1.023 (1.010-1.030) Urine Protein 1+(30 mg/dl) A (Negative) Urine Ketones Negative (Negative) Urine Blood Negative (Negative) Urine Nitrate Negative (Negative) Urine Bilirubin Negative (Negative) Urine Urobilinogen Negative (Negative) Ur Leukocyte Esterase Negative (Negative) Urine WBC (Auto) Trace(0-5/hpf) (Absent) Urine RBC (Auto) 1+(3-5/hpf) A (Absent) Ur Squamous Epith Cells Present A (Absent) Urine Bacteria Absent (Absent) Urine Glucose Negative (Negative) Result Diagrams: 10/18/17 13:56 10/18/17 13:56 Lab Statement: Any lab studies that have been ordered have been reviewed, and results considered in the medical decision making process. - Ultrasound No standard instances Ultrasound Interpretation Completed By: Radiologist - US reveals 1. SINGLE LIVE INTRAUTERINE GESTATION AT 18 WEEKS, 0 DAYS BY COMPOSITE GESTATIONAL AGE. 2. LIMITED ANATOMY EVALUATION. ED physician has reviewed this radiology report. Abdominal Pain Fem Course/Dx - Course Course Of Treatment: Patient is a 21-year-old female who presents to the emergency department with a complaint of a headache, abdominal cramping and pelvic cramping, nausea without vomiting. The patient reports that she is 21 weeks but denies any vaginal discharge or bleeding. In the ED course the physical exam is within normal limits. At this time the patient declined a pelvic exam. The patient was given IV fluids, Tylenol for the pain. ultrasound impression: Single live intrauterine gestation at 18 weeks, 0 days by gestational age. Limited anatomy evaluation. Test results without any significant abnormality. Urinalysis is negative for UTI. After the patient was hydrated and given Tylenol of the patients symptoms improved. Therefore the patient will discharged home with follow-up with [facility] and primary care physician. I discussed all the findings and test results with the patient. All her questions were answered and there is no further concerns. - Diagnoses Differential Diagnosis: Positive: Other - threatened and CAMPBELL Provider Diagnoses: Threatened , Headache Discharge - Sign-Out/Discharge Documenting (check all that apply): Patient Departure - Discharge Plan Condition: Stable Disposition: HOME Patient Education Materials: Threatened Miscarriage (ED), Acute Headache (ED) Referrals: Ras Abreu MD [Primary Care Provider] - 3 Days Additional Instructions: RETURN TO ED FOR ANY WORSENING OR NEW SYMPTOMS
[2017-10-18 14:22] LABS: ABS Basophils 0 10^3/ul (0-0.2); ABS Eosinophils 0 10^3/ul (0-0.6); ABS Lymphocytes 1.1 10^3/ul (1.0-4.8); ABS Monocytes 0.4 10^3/ul (0-0.8); ABS Neutrophils 9.6 10^3/ul (1.5-7.7); ABS Nucleated RBC 0 10^3/ul; Eosinophil % 0.3 % (0-6); Hematocrit 33 % (35-47); Hemoglobin 10.8 g/dl (12.0-16.0); Lymphocyte % 9.6 % (25-47); Mean Corpuscular HGB Conc 33 g/dl (31-36); Mean Corpuscular Hemoglobin 25 pg (27-31); Mean Corpuscular Volume 76 fL (80-97); Mean Platelet Volume 8.8 um3 (7.4-10.4); Nucleated Red Blood Cells % 0; Platelet Count 192 10^3/ul (150-450); Red Blood Count 4.33 10^6/ul (4.00-5.40); Red Cell Distribution Width 17 % (10.5-15)
[2017-10-18 14:46] LABS: EGFR Non-African American 145.6 (>60)
--- NOTE | 2017-10-18 15:12 | RAD ---
HISTORY: Abdominal and pelvic pain. 18 wks . The gestational age by outside ultrasound is: 17 weeks, 5 days COMPARISONS: None available at the time of dictation. TECHNIQUE: Multiple transverse and longitudinal ultrasound images were obtained of the gravid uterus using Grayscale, color Doppler, spectral Doppler, and M-mode Doppler imaging. FINDINGS: /PLACENTAL EVALUATION: Number of fetuses: Single Presentation: Cephalic cardiac activity: 139 bpm Gross motion: Observed Placenta position: Posterior Amniotic fluid volume: Normal MAR: 12 cm BIOMETRY: Biparietal diameter: 3.9 cm 18 weeks, 0 days Head circumference: 14.7 cm 17 weeks, 6 days Abdominal circumference: 11.9 cm 17 weeks, 5 days Femur length: 2.8 cm 18 weeks, 3 days HC/AC: 1.24 Estimated weight: 218 grams, +/- 32 grams GESTATIONAL AGE: The composite gestational age is: 18 weeks, 0 days. The SHAGUFTA is: March 21, 2018. This is concordant with age by outside ultrasound. ANATOMY: cranium: Not evaluated ventricles: Not evaluated choroid plexus: Not evaluated cerebellum: Not evaluated posterior fossa: Not evaluated face/orbits/lips: Within normal limits spine: Not evaluated heart: Normal 4 chamber diaphragm: Not evaluated stomach: Within normal limits kidneys: Within normal limits bladder: Within normal limits cord: Not evaluated CERVIX: The cervix is long and closed, without funneling.. The cervix measures 4 cm. OTHER: None IMPRESSION: 1. SINGLE LIVE INTRAUTERINE GESTATION AT 18 WEEKS, 0 DAYS BY COMPOSITE GESTATIONAL AGE. 2. LIMITED ANATOMY EVALUATION
[2017-10-18 16:05] VITALS: BP 106/65
== END 2017-10-18 16:15 | disposition home or self-care (01) ==
LOC: ED 11:34
DX: O20.0 Threatened abortion (principal); Z3A.21 21 weeks gestation of pregnancy; O26.892 Other specified pregnancy related conditions, second trimester; Z87.891 Personal history of nicotine dependence
CPT/HCPCS: 36415; 76815; 80053; 81003; 81015; 85025; 87086; 96360; 96361; 99283; A9270-GY

== ENCOUNTER 2018-01-13 10:59 | Emergency (ER) | payer OTHER ==
[2018-01-13 12:21] LABS: ABS Basophils 0 10^3/ul (0-0.2); ABS Eosinophils 0 10^3/ul (0-0.6); ABS Lymphocytes 0.8 10^3/ul (1.0-4.8); ABS Monocytes 0.6 10^3/ul (0-0.8); ABS Neutrophils 9.7 10^3/ul (1.5-7.7); ABS Nucleated RBC 0 10^3/ul; Eosinophil % 0.1 % (0-6); Hematocrit 31 % (35-47); Hemoglobin 9.9 g/dl (12.0-16.0); Mean Corpuscular HGB Conc 32 g/dl (31-36); Mean Corpuscular Hemoglobin 25 pg (27-31); Mean Corpuscular Volume 77 fL (80-97); Mean Platelet Volume 8.8 um3 (7.4-10.4); Nucleated Red Blood Cells % 0.2; Platelet Count 232 10^3/ul (150-450); Red Blood Count 4.04 10^6/ul (4.00-5.40); Red Cell Distribution Width 15 % (10.5-15); White Blood Count 11.1 10^3/ul (3.5-10.8)
[2018-01-13 12:44] LABS: EGFR Non-African American 135.4 (>60)
--- NOTE | 2018-01-13 12:53 | ED ---
Abdominal Pain/Female - HPI Summary HPI Summary: This patient is a 22 year old F presenting to [facility] accompanied by her mother with a chief complaint of constant stabbing diffuse back pain and constant diffuse cramping mostly lower abd pain since 01/12/18 AM. She endorses fever overnight with a max temperature of 102, alleviated by Tylenol, and nausea. She denies emesis, urinary sx, diarrhea, and constipation. She notes that she is 30 weeks (A2, both children vaginal deliveries), endorses normal fetus movement, denies significant complications, denies vaginal bleeding, and denies that the pain feels like contraction pains. She denies SHx appendectomy, and endorses SHx cholecystectomy. - History of Current Complaint Chief Complaint: EDAbdPain Time Seen by Provider: 01/13/18 12:35 Hx Obtained From: Patient Hx Last Menstrual Period: 06/17/17 ?: Yes - 30 weeks Onset/Duration: Sudden Onset, Lasting Days, Still Present Timing: Constant Severity Initially: Moderate Severity Currently: Moderate Pain Intensity: 8 Pain Scale Used: 0-10 Numeric Location: Diffuse, Discrete At: RLQ, Discrete At: LLQ Radiates: Yes Radiates to: Back - BL Character: Cramping - abd, Other: - "stabbing" back pain Aggravating Factor(s): Nothing Alleviating Factor(s): Medications - tylenol alleviated fever Associated Signs and Symptoms: Positive: Fever, Back Pain, Decreased Appetite, Nausea. Negative: Constipation, Blood in Stool, Urinary Symptoms, Vaginal Bleeding, Vomiting, Diarrhea Allergies/Adverse Reactions: Allergies Allergy/AdvReac Type Severity Reaction Status Date / Time No Known Allergies Allergy Verified 01/13/18 11:06 PMH/Surg Hx/FS Hx/Imm Hx Endocrine/Hematology History: Reports: Hx Anemia - ON IRON 04/24/12 DELIVERED BABY Denies: Hx Diabetes, Hx Thyroid Disease Cardiovascular History: Denies: Hx Hypertension Respiratory History: Reports: Hx Asthma Denies: Hx Chronic Obstructive Pulmonary Disease (COPD) GI History: Reports: Hx Gastroesophageal Reflux Disease - OK SINCE PREVACID Denies: Hx Ulcer History: Reports: Other Problems/Disorders - recurrent uti's Sensory History: Denies: Hx Contacts or Glasses, Hx Hearing Aid Opthamlomology History: Denies: Hx Contacts or Glasses Psychiatric History: Denies: Hx Eating Disorder, Hx of Violent Episodes Against Others - Surgical History Surgery Procedure, Year, and Place: Cholecystectomy 05/2012 Hx Anesthesia Reactions: No - Immunization History Date of Tetanus Vaccine: 2012 Infectious Disease History: No Infectious Disease History: Denies: Hx Clostridium Difficile, Hx Hepatitis, Hx Human Immunodeficiency Virus (HIV), Hx of Known/Suspected MRSA, Hx Tuberculosis, Hx Known/Suspected VRE , Hx Known/Suspected VRSA, History Other Infectious Disease, Traveled Outside the [place] in Last 30 Days - Family History Known Family History: Positive: Other - anemia Negative: Cardiac Disease, Hypertension, Diabetes - Social History Lives: With Family Alcohol Use: Occasionally Hx Substance Use: No Substance Use Type: Reports: None Substance Use Comment - Amount & Last Used: not recently Hx Tobacco Use: Yes Smoking Status (MU): Former Smoker Type: Cigarettes Amount Used/How Often: 1/2 PPD Have You Smoked in the Last Year: No Review of Systems Positive: Fever Positive: Abdominal Pain, Nausea. Negative: Vomiting, Diarrhea Positive: other - 30 weeks . Negative: dysuria, discharge, hematuria All Other Systems Reviewed And Are Negative: Yes Physical Exam - Summary Physical Exam Summary: Appearance: Well-appearing, Well-nourished, lying in bed comfortably Skin: Warm, dry, no obvious rash Eyes: sclera anicteric, no conjunctival pallor ENT: mucous membranes moist, pharynx appears normal Neck: Supple, nontender Respiratory: Clear to auscultation, no signs of respiratory distress Cardiovascular: Normal S1, S2. No murmurs. Normal distal pulses in tibial and radial bilaterally. Abdomen: Soft, gravid appropriate to dates, minimal diffuse tenderness without guarding or rebound, normal active bowel sounds present Musculoskeletal: Strength/ROM Intact. Tenderness to percussion on both sides of her back Neurological: A&Ox3, awake and alert, mentation is normal, speech is fluent and appropriate Psychiatric: affect is normal, does not appear anxious or depressed Triage Information Reviewed: Yes Vital Signs On Initial Exam: Initial Vitals Temp Pulse Resp BP Pulse Ox 97.3 F 103 18 114/69 99 01/13/18 11:03 01/13/18 11:03 01/13/18 11:03 01/13/18 11:03 01/13/18 11:03 Vital Signs Reviewed: Yes Diagnostics - Vital Signs Vital Signs Temp Pulse Resp BP Pulse Ox 01/13/18 11:03 97.3 F 103 18 114/69 99 - Laboratory Lab Results: Lab Results 01/13/18 01/13/18 Range/Units 12:02 12:02 WBC 11.1 H (3.5-10.8) 10^3/ul RBC 4.04 (4.00-5.40) 10^6/ul Hgb 9.9 L (12.0-16.0) g/dl Hct 31 L (35-47) % MCV 77 L (80-97) fL MCH 25 L (27-31) pg MCHC 32 (31-36) g/dl RDW 15 (10.5-15) % Plt Count 232 (150-450) 10^3/ul MPV 8.8 (7.4-10.4) um3 Neut % (Auto) 87.2 H (38-83) % Lymph % (Auto) 7.0 L (25-47) % [place] % (Auto) 5.5 (0-7) % Eos % (Auto) 0.1 (0-6) % Baso % (Auto) 0.2 (0-2) % Absolute Neuts (auto) 9.7 H (1.5-7.7) 10^3/ul Absolute Lymphs (auto) 0.8 L (1.0-4.8) 10^3/ul Absolute Monos (auto) 0.6 (0-0.8) 10^3/ul Absolute Eos (auto) 0 (0-0.6) 10^3/ul Absolute Basos (auto) 0 (0-0.2) 10^3/ul Absolute Nucleated RBC 0 10^3/ul Nucleated RBC % 0.2 Sodium 132 L (135-145) mmol/L Potassium 3.8 (3.5-5.0) mmol/L Chloride 104 (101-111) mmol/L Carbon Dioxide 21 L (22-32) mmol/L Anion Gap 7 (2-11) mmol/L BUN 5 L (6-24) mg/dL Creatinine 0.56 (0.51-0.95) mg/dL Est GFR ( Amer) 163.8 (>60) Est GFR (Non-Af Amer) 135.4 (>60) BUN/Creatinine Ratio 8.9 (8-20) Glucose 87 (70-100) mg/dL Calcium 8.8 (8.6-10.3) mg/dL Total Bilirubin 0.50 (0.2-1.0) mg/dL AST 15 (13-39) U/L ALT 18 (7-52) U/L Alkaline Phosphatase 130 H (34-104) U/L Total Protein 6.8 (6.4-8.9) g/dL Albumin 3.4 (3.2-5.2) g/dL Globulin 3.4 (2-4) g/dL Albumin/Globulin Ratio 1.0 (1-3) Lipase 26 (11.0-82.0) U/L Result Diagrams: 01/13/18 12:02 01/13/18 12:02 Lab Statement: Any lab studies that have been ordered have been reviewed, and results considered in the medical decision making process. - CT MRI abd CT Interpretation: No Acute Changes CT Interpretation Completed By: Radiologist - 1. Moderate right hydronephrosis and ureterectasis. 2. The appendix is not visualized. No inflammatory changes surround the cecum or elsewhere. No abnormal fluid collection. Dr. Lu has reviewed this report. - Ultrasound No standard instances Ultrasound Interpretation: Positive (See Comments) Ultrasound Interpretation Completed By: Radiologist - Pelvic US: Single intrauterine gestation with a gestational age of 30 weeks 2 days determined by initial ultrasound. There appears to be appropriate interval growth. Estimated weight is 1461 g. Amniotic fluid appears to be within normal limits. Appendix US: Appendix not visualized. Dr. Lu has reviewed these reports. Abdominal Pain Fem Course/Dx - Course Course Of Treatment: A 22-year-old F presents to the ED with a CC of diffuse cramping abd pain and diffuse sharp lower back pain for 1 day. (+) fever (102), nausea, 30 weeks . (-) V/D, urinary sx, vaginal bleeding, constipation. A2, denies current complications, notes that previous deliveries were vaginal, movement has been normal, and that these pains are dissimilar to contraction pains. A US reveals single intrauterine gestation with a gestational age of 30 weeks 2 days determined by initial ultrasound. There appears to be appropriate interval growth. Estimated weight is 1461 g. Amniotic fluid appears to be within normal limits. A US appendix was (-). A MRI abd revealed 1. Moderate right hydronephrosis and ureterectasis. 2. The appendix is not visualized. No inflammatory changes surround the cecum or elsewhere. No abnormal fluid collection. Pt labs show high WBC, low H&H, low MCV, low MCH, high lymph %, low neut %, high abs lymph, low abs neut, low Na+, low CO2, low BUN, high alkaline phosphotase, low urine specific gravity, and urine ketones. Acute appendicitis ruled out by MRI. Exact etiology of pain is unclear but at this point will need to have close outpt f/u. - Diagnoses Provider Diagnoses: Acute bilateral lower abdominal pain - Provider Notifications Discussed Care Of Patient With: Betty Zelaya Time Discussed With Above Provider: 14:04 Instructed by Provider To: Other - Recommends US, KB test, consider surgical consult. Discharge - Sign-Out/Discharge Documenting (check all that apply): Patient Departure - discharge - Discharge Plan Condition: Good Disposition: HOME Patient Education Materials: Acute Abdominal Pain (ED) Referrals: Betty Zelaya MD [Medical Doctor] - 1 Day (if still having pain) Additional Instructions: Keep to a light diet tonight, if feeling better tomorrow you can resume a normal diet. - Billing Disposition and Condition Condition: GOOD Disposition: Home - Attestation Statements Document Initiated by Andriyibamrita: Yes Documenting Scribe: Tre Freeman Provider For Whom Tru is Documenting (Include Credential): Dr. Darren Lu MD Scribe Attestation: Tre Bearden scribed for Dr. Darren Lu MD on 01/14/18 at 1247. Scribe Documentation Reviewed: Yes Provider Attestation: The documentation as recorded by the Tre ray accurately reflects the service I personally performed and the decisions made by me, Dr. Darren Lu MD Consult Consult: [id number] Dr. Diamond: recommends appendeceal ultrasound 2055: Dr. Zelaya: discussed MRI, recommends discharge
[2018-01-13 13:02] LABS: Urine Appearance Cloudy; Urine Blood Negative (Negative); Urine Color Yellow; Urine Ketones 1+ (Negative); Urine Protein Negative (Negative); Urine Specific Gravity 1.009 (1.010-1.030); Urine Urobilinogen Negative (Negative)
--- NOTE | 2018-01-13 15:30 | RAD ---
Indication: Lower abdominal pain. Real-time sonography of the study was performed. There is a single intrauterine gestation in cephalic presentation. There is a posterior right lateral placenta. heart activity is noted at 144 bpm. movement is noted. Amniotic fluid index is within normal limits. The cervix is long and closed. The BPD measures 7.4 cm corresponding to gestational age of 29 weeks 6 days. Head circumference measures 27.7 cm corresponding to gestational age of 30 weeks 3 days. Abdominal circumference measures 25.34 cm corresponding to gestational age of 29 weeks 4 days. Femur length measures 5.8 cm corresponding to gestational age of 30 weeks 1 day. The estimated gestational age is 30 weeks 1 day. Estimated weight is 1461 g. IMPRESSION: Single intrauterine gestation with a gestational age of 30 weeks 2 days determined by initial ultrasound. There appears to be appropriate interval growth. Estimated weight is 1461 g. Amniotic fluid appears to be within normal limits.
--- NOTE | 2018-01-13 17:00 | RAD ---
Indication: . High frequency graded compression sonography of the right lower quadrant utilizing a high frequency linear transducer was performed. Appendix is not visualized. No evidence of free fluid is noted. IMPRESSION: Appendix not visualized.
--- NOTE | 2018-01-13 20:21 | RAD ---
EXAM: MR Abdomen Without Intravenous Contrast CLINICAL HISTORY: 22 years old, female; Signs and symptoms; Other: Rt sided abdomen pain; Patient HX: Pt is 30 weeks (exam approved by dr. Brasher) and she is complaining of stabbing diffuse back pain and constant lower abdominal pain since yesterday with fever of 102 degree fahrenheit since last night; Additional info: R sided abd pain, assess for appy. appendix protocol TECHNIQUE: Multiplanar magnetic resonance images of the abdomen without intravenous contrast. COMPARISON: APPENDIX US APPENDIX 01/13/2018 4:32 PM FINDINGS: Lung bases: Unremarkable. No mass. No consolidation. Liver: Unremarkable. Gallbladder and bile ducts: Unremarkable. No calcified stones. No ductal dilation. Pancreas: Unremarkable. No ductal dilation. Spleen: Unremarkable. No splenomegaly. Adrenals: Unremarkable. No mass. Kidneys and ureters: Moderate right hydronephrosis and ureterectasis. Stomach and bowel: Unremarkable. No obstruction. Appendix: The appendix is not visualized. No inflammatory changes surround the cecum or elsewhere. No abnormal fluid collection. Intraperitoneal space: Unremarkable. No significant fluid collection. Soft tissues: Unremarkable. Vasculature: Unremarkable. No abdominal aortic aneurysm. Lymph nodes: Unremarkable. No enlarged lymph nodes. Other findings: . IMPRESSION: 1. Moderate right hydronephrosis and ureterectasis. 2. The appendix is not visualized. No inflammatory changes surround the cecum or elsewhere. No abnormal fluid collection. To contact [facility] with a general question: Operations Center - [phone] For direct physician to physician contact: Physician Hotline - [phone] [facility] ([facility] Facility ID #[id number])
[2018-01-13 21:38] VITALS: BP 112/72
--- NOTE | 2018-01-13 23:28 | CONS ---
CC: Dr. Ras Abreu; [facility] * CONSULTATION REPORT: DATE OF CONSULTATION: 01/13/18 CHIEF COMPLAINT: Abdominal pain. HISTORY OF PRESENT ILLNESS: Ms. Palacios is a 22-year-old female who was well until she awoke yesterday morning with lower abdominal pain. She is 30 weeks' and has been having the usual aches and pains of , but states she woke up yesterday morning with things much more severe than they had been, although a similar location. She was somewhat queasy during the day, but had no nausea or vomiting, and ate relatively normally, maybe with a slightly decreased appetite. She did have a fever over a 100 sometime during the day. No chills. No vomiting. No diarrhea. No blood in the stool or urine. No dysuria. No vaginal discharge. No trauma, accident, or injury. PAST MEDICAL HISTORY: Reveals no chronic abdominal illnesses. This has been going reasonably well. She has had aches and pains, but nothing too dramatic. She does follow with [facility]. She has had two previous pregnancies, one of which during which she had a lot of gallbladder attacks and then she had an uneventful laparoscopic cholecystectomy after delivering the baby that was about 5 years ago. The current pain she points to the lower abdomen a kind of from the right iliac crest down underneath her panniculus to the suprapubic area to the left of midline. She has no history of Crohn's disease or colitis or the like. She has had no abdominal surgery other than the cholecystectomy and has not had a section. PHYSICAL EXAM: On examination, she is a well-developed, well-nourished overweight female, who appears . She does not appear acutely ill. Skin is warm, well perfused. She is not diaphoretic. She is not jaundiced. Vital signs here show temperature of 97.3, pulse has been in the 90s, O2 saturations is near 100%, blood pressure 110/66. Pulse is even and breathing is easy and unlabored. Abdomen: The fundus is palpable about 5 cm above the umbilicus. She has tenderness in the right abdomen roughly at the level of the umbilicus down to the right lower quadrant and across the suprapubic area just to the left of midline. The maximal tenderness is from the right iliac crest along to the right suprapubic area. There is no definite rebound tenderness. No guarding. No palpable masses. No obvious hernias. She does not have any particular Rovsing sign or percussion tenderness. She does have some cough tenderness. DIAGNOSTIC STUDIES/LAB DATA: [place] [address] with 87 polys and 7 lymphs. Hemoglobin is 9.9 and her MCV is 77. Both of these are stable over the snf. Her neutrophil count is also relatively stable over recent visits. Her electrolytes are essentially normal. Lactic acid is normal. Liver chemistries are essentially normal. Renal function normal. Urinalysis relatively normal. She has had a ultrasound, which is normal. She has had right lower quadrant ultrasound to look for the appendix, which was nonvisualization. IMPRESSION: A 22-year-old female with third trimester with suprapubic and right lower quadrant abdominal pain of uncertain etiology. PLAN/RECOMMENDATIONS: On the basis of the current examination and the clinical picture, I cannot rule out appendicitis, although I cannot say that there is enough evidence of appendicitis to justify a trip to the operating room. At this stage, I think the most appropriate next step would be a noncontrast MRI scan of the abdomen, which is the general consensus study best suited to appendicitis and and is considered safe for the fetus. It has a high sensitivity and specificity in the setting. I discussed this with Dr. Ricardo and Dr. Lu and they indicate that they should be able to obtain the scan this evening and will make plans to do so. I will continue to follow along with you as needed. [id number] #: [id number] MTDD
== END 2018-01-13 21:37 | disposition home or self-care (01) ==
LOC: ED 10:59
DX: O26.893 Other specified pregnancy related conditions, third trimester (principal); Z3A.30 30 weeks gestation of pregnancy; R10.32 Left lower quadrant pain; R10.31 Right lower quadrant pain; K21.9 Gastro-esophageal reflux disease without esophagitis; Z87.891 Personal history of nicotine dependence
CPT/HCPCS: 36415; 74181; 76705; 76815; 80053; 81003; 83605; 83690; 85025; 87040; 99283

== ENCOUNTER 2018-03-16 08:04 | Inpatient (IN) | payer OTHER ==
[2018-03-16] MEDS ORDERED: Lactated Ringers 1000 ML Bag* 1,000 ML IV ONE (10:24)
--- NOTE | 2018-03-16 10:40 | HP ---
General Information - Reason for Visit Scheduled induction of labor, hx shoulder dystocia - General Information Maternal Age: 22 Grav: 5 Para: 2 SAB: 2 IEA: 0 Estimated Due Date: 03/23/18 Determined By: LMP Maternal Blood Type and Rh: O Positive - Results this Serology/RPR Result: Non-Reactive Rubella Result: Immune HBsAg Result: Negative HIV Result: Negative GBS Culture Result: Negative Past Medical History Delivery History: Hx Complicated Vaginal Delivery - 1st delivery- partial 3rd degree laceration, second delivery- shoulder dystocia <1min Pertinent Past Medical History: See Records - asthma Pertinent Past Surgical History: See Records - cholecystectomy Pertinent Family History: Non-Contributory - Antepartal Records Antepartal Records: Reviewed, Uncomplicated Review of Systems Constitutional: Comfortable CV Complaint: No Respiratory: Shortness of Breath: No Gastrointestinal: No Nausea/Vomiting, Normal Bowel Movement Genitourinary: No Dysuria, No Bleeding, No Leaking Fluid Musculoskeletal: No Complaint, No Epigastric Pain Neurological: No Headache, No Visual Changes Movement: Normal Exam Allergies/Adverse Reactions: Allergies No Known Allergies Allergy (Verified 03/02/18 11:43) Vital Signs 03/16/18 08:11 Temperature 98.1 F Pulse Rate 80 Respiratory 18 Rate Blood Pressure 116/72 (mmHg) O2 Sat by Pulse 100 Oximetry - Measurements Height: 5 ft 7 in Weight: 113.398 kg Weight in lbs: 250.526120 Body Mass Index (BMI): 39.1 Pre- Weight: 104.326 kg Weight Gained This : 20 lbs and 0 ozs - Exam Breast: Breast Exam Deferred CVA: No CVA Tenderness Extremities: No Edema Heart: Normal Rhythm/Heart Sounds HEENT: No Significant Findings Lungs: Clear Bilaterally Rectal: Rectal Exam Deferred Reflexes: DTR 2+ Thyroid: No Thyromegaly - Abdominal Exam Abdomen Exam: Non-Tender, Fundal Height Consistent with Dates Targeted Exam Findings See L&D Outpatient Visit Provider Note for Findings: N/A Estimated Weight: 8# Cervical Exam: 2cm Effacement: 50% - soft Station: -2 Presenting Part: Vertex Membrane Status: Intact Bleeding/Discharge: None EFM Findings - External Monitor Findings Baseline Heart Rate: 145 External Monitor Findings: Accelerations Present, No Pattern of Variable or Late Decelerations, Variability Moderate, Baseline Stable Contractions: None Assessment/Plan - Assessment Pt is 22 year old at 39 0/7 weeks gestation with no evidence of acidemia, GBS negative, intact membranes, here for induction of labor due to prior LGA baby with shoulder dystocia. - Obstetrical Risk Factors Risk Factors Comment: Hx shoulder dystocia - Plan Plan: Induction Plan Comment: Discussed options with pt. Given that she is already 2cm dilated and it is her third baby, will initiate trial of Pitocin. Pt in agreement with plan. Dr. Floyd informed of plan as well as hx shoulder dystocia. - Date/Time of Admission Date of Admission: 03/16/18 Time of Admission: 10:05
[2018-03-16] MEDS ORDERED: Oxytocin in LR* 20 UNITS/1,000 ML BAG IVPB SCH (11:00)
[2018-03-16 11:04] LABS: ABS Basophils 0.1 10^3/ul (0-0.2); ABS Eosinophils 0 10^3/ul (0-0.6); ABS Lymphocytes 1.6 10^3/ul (1.0-4.8); ABS Monocytes 0.6 10^3/ul (0-0.8); ABS Neutrophils 10.1 10^3/ul (1.5-7.7); ABS Nucleated RBC 0 10^3/ul; Eosinophil % 0.4 %; Hematocrit 29 % (35-47); Hemoglobin 9.1 g/dl (12.0-16.0); Lymphocyte % 12.8 %; Mean Corpuscular HGB Conc 31 g/dl (31-36); Mean Corpuscular Hemoglobin 21 pg (27-31); Mean Corpuscular Volume 68 fL (80-97); Mean Platelet Volume 8.3 fL (7.4-10.4); Nucleated Red Blood Cells % 0; Platelet Count 214 10^3/ul (150-450); Red Blood Count 4.25 10^6/ul (4.00-5.40); Red Cell Distribution Width 17 % (10.5-15); White Blood Count 12.4 10^3/ul (3.5-10.8)
[2018-03-16] MEDS: Lactated Ringers 1000 ML Bag* 1,000 ML IV SCH (12:35)
[2018-03-17] MEDS ORDERED: Oxytocin in LR* 20 UNITS/1,000 ML BAG IVPB SCH ×2 (08:43→15:31)
[2018-03-17] MEDS: Lactated Ringers 1000 ML Bag* 1,000 ML IV SCH (08:53)
[2018-03-17] MEDS ORDERED: OBEPIDURAL* 250 ML EPIDURAL ONE (12:51)
[2018-03-17] MEDS ORDERED: Lactated Ringers 1000 ML Bag* 1,000 ML IV ONE (14:00)
[2018-03-17] MEDS ORDERED: Sodium Citrate/Citric Acid* 15 ML UDC PO PRN (14:00)
[2018-03-17] MEDS ORDERED: Lactated Ringers 1000 ML Bag* 1,000 ML IV SCH ×2 (14:00→16:00)
[2018-03-17] MEDS ORDERED: Phenylephrine IV* 40 MCG/ML 10 ML SYRINGE IV PUSH PRN (14:00)
[2018-03-17] MEDS ORDERED: Famotidine TAB* 20 MG PO PRN (14:00)
[2018-03-17] MEDS ORDERED: OBEPIDURAL* 250 ML EPIDURAL SCH (14:00)
[2018-03-17] MEDS ORDERED: Glycerin ADULT SUPP PR PRN (15:25)
[2018-03-17] MEDS ORDERED: Witch Hazel PAD* JAR TOPICAL PRN (15:25)
[2018-03-17] MEDS ORDERED: Dibucaine 1% 28.35 GM TUBE PR PRN (15:25)
[2018-03-17] MEDS ORDERED: Acetaminophen TAB* 325 MG PO PRN (15:25)
--- NOTE | 2018-03-17 15:50 | PROCNOTE ---
[facility] OB: Delivery Note - Delivery A Date of : 03/17/18 Time of : 14:31 [place] Sex: Female Score 1 Minute: 8 Score 5 Minutes: 9 Gestational Age in Weeks and Days at Delivery: 39 Weeks and 1 Days Delivery Method: Spontaneous Vaginal Labor: Induced Did Patient attempt ?: N/A, No Previous Amniotic Fluid: Clear Estimated Blood Loss: 300 Anesthesia/Analgesia: CEI for Labor Anesthesia Comment: Prem Delivered By: Sophia Gutierrez - Nursery Level of Nursery: Regular/Bedside - Perineum Perineal Injury: 1st Degree Perineal Injury Comment: 1 stitch repair Perineal Repair: Repair by Shannon Thompson CNM - Events Delivery Events of Note: Precipitous Delivery - Additional Delivery Notes Additional Delivery Notes: Called to bedside after precipitous delivery of viable baby girl. Mother c/o of pressure and baby delivered spontaneously without pushing in bed. Sophia Gutierrez , RN at bedside. Infant pink with stimulation. Cord milked and delayed cord clamping. Placenta reinaldo, fundus firm with massage, IV with pitocin running. Upon inspection small perineal laceration noted. Repaired by Shannon Thompson CNM. EBL 300ml. Mother and baby in good condition.
--- NOTE | 2018-03-17 16:08 | PN ---
Progress Note - Progress Note Date of Service: 03/17/18 Note: Small perineal lac at introitus. 1 stitch repair with 3-0 ccg, no local
[2018-03-17] MEDS ORDERED: Ferrous Gluconate TAB* 324 MG TAB ONE (20:47)
[2018-03-17] MEDS: Docusate CAP* 100 MG PO SCH (20:50)
[2018-03-17] MEDS: Ferrous Gluconate TAB* 324 MG TAB PO SCH (20:51)
[2018-03-18] MEDS: Ibuprofen TAB* 600 MG PO PRN ×4 (00:08→20:33)
[2018-03-18 07:47] LABS: Hematocrit 25 % (35-47); Hemoglobin 7.8 g/dl (12.0-16.0); Mean Corpuscular HGB Conc 31 g/dl (31-36); Mean Corpuscular Hemoglobin 21 pg (27-31); Mean Platelet Volume 8.3 fL (7.4-10.4); Platelet Count 191 10^3/ul (150-450); Red Cell Distribution Width 16 % (10.5-15); White Blood Count 13.9 10^3/ul (3.5-10.8)
[2018-03-18 08:39] LABS: ABS Basophils 0 10^3/ul (0-0.2); ABS Eosinophils 0.1 10^3/ul (0-0.6); ABS Lymphocytes 2.5 10^3/ul (1.0-4.8); ABS Monocytes 0.8 10^3/ul (0-0.8); ABS Neutrophils 10.6 10^3/ul (1.5-7.7); ABS Nucleated RBC 0 10^3/ul; Eosinophil % 0.7 %; Lymphocyte % 17.7 %; Mean Corpuscular Volume 68 fL (80-97); Microcytosis 3+; Nucleated Red Blood Cells % 0; Polychromasia 1+
[2018-03-18] MEDS: Ferrous Gluconate TAB* 324 MG TAB PO SCH ×3 (08:51→20:33)
[2018-03-18] MEDS: Docusate CAP* 100 MG PO SCH ×3 (08:51→20:33)
[2018-03-19] MEDS: Ibuprofen TAB* 600 MG PO PRN (03:00)
[2018-03-19 08:02] VITALS: BP 119/54
[2018-03-19] MEDS: Docusate CAP* 100 MG PO SCH (08:03)
[2018-03-19] MEDS: Ferrous Gluconate TAB* 324 MG TAB PO SCH (08:03)
== END 2018-03-19 09:41 | disposition home or self-care (01) | DRG 560 ==
LOC: MCHOBOUT 08:04 → MCHOB 10:11
PROVIDERS: ADMIT Midwife; ATTEND Midwife
PROC: 10907ZC Drainage of Amniotic Fluid, Therapeutic from Products of Conception, Via Natural or Artificial Opening (ICD-10-PCS; principal; 2018-03-16)
PROC: 4A1HXCZ Monitoring of Products of Conception, Cardiac Rate, External Approach (ICD-10-PCS; 2018-03-16)
PROC: 3E033VJ Introduction of Other Hormone into Peripheral Vein, Percutaneous Approach (ICD-10-PCS; 2018-03-16)
PROC: 10E0XZZ Delivery of Products of Conception, External Approach (ICD-10-PCS; 2018-03-17)
PROC: 0HQ9XZZ Repair Perineum Skin, External Approach (ICD-10-PCS; 2018-03-17)
DX: O62.3 Precipitate labor (principal); D62 Acute posthemorrhagic anemia; Z37.0 Single live birth; O70.0 First degree perineal laceration during delivery; O90.81 Anemia of the puerperium; Z3A.39 39 weeks gestation of pregnancy
CPT/HCPCS: 36415; 85025; 86850; 86900; 86901; A9270-GY

== ENCOUNTER 2018-05-28 07:41 | Emergency (ER) | payer OTHER ==
--- OUTSIDE RECORDS SUMMARY | 2018-05-28 07:49 | XMS REPORT | Continuity of Care Document ---
:1995 External Reference #:[id number] Author Name Jennifer Floyd MD Address [address] [place] [address] Care Team Providers Name Role Phone Samuel Garner M.D. Primary Care Physician Unavailable Payers Date Identification Numbers Payment Provider Subscriber Policy Number: [id number] [facility] Kerrie Baron PayID: [id number] [address] [place] [address] Policy Number: [id number] [place] Kerrie Baron PayID: [id number] [address] [place] [address] Advance Directives Description No Information Available Problems Date Description Provider Status Onset: 09/15/2017 Multigravida Heraclio Andres CNM Active Onset: 02/02/2018 Shoulder dystocia - delivered Heraclio Andres CNM Active Onset: 10/13/2011 High Risk Young Anne Hammond CNM Inactive Primigravida Inactive: 09/15/2017 Onset: 10/13/2011 Anemia of Anne Hammond CNM Inactive Inactive: 09/15/2017 Family History Date Family Member(s) Observation Comments Father A&W Mother Anemia First Son A&W First Daughter A&W Second Daughter A&W First Brother A&W First Sister Anemia Second Sister A&W Paternal Grandfather A&W Paternal Grandmother due to Congestive Heart Failure () Paternal Grandmother due to Lung Cancer () Maternal Grandfather A&W Maternal Grandmother Skin Cancer Social History Type Date Description Comments Sex Unknown Education Highest level completed, 12th grade Marital Status Lives With Lives With Daughters Lives With Son Lives With Step Child Diet Healthy, Well Balanced Pets 1 cat Occupation Homemaker Tobacco Use Start: Unknown Never Smoked Cigarettes Smoking Status Reviewed: 05/11/18 Never Smoked Cigarettes ETOH Use Occasionally consumes beer Tobacco Use Start: Unknown Patient has never smoked Recreational Drug Use Denies Drug Use Exercise Type/Frequency Exercises regularly Seat Belt/Car Seat Always uses seat belt Currently Active Patient is currently sexually active Contraceptive Methods Current methods include condoms STD's No STD History Allergies, Adverse Reactions, Alerts Description No Known Drug Allergies Medications Medication Date Status Form Strength Qnty SIG Indications Ordering Provider Yoli (52 MG) 05/11 Active IUD 19.5mcg/D shana Floyd MD Vitamin Active 1 po qd / Metronidazole 03/02 Hx Tablets 500mg 14tab 1 tablet Erianna s every 12 Sharma, - hours no CNM 03/17 alcohol while taking medication Diclegis 12/09 Hx Tablets 10-10mg 100ta take [address] [facility], [place]. if Sharma, - symptoms CNM 03/17 persist, add 1 tab qam starting day 3. if symptoms persist, add 1 tab q afternoon starting day4 Reglan 09/15 Hx Tablets 5mg 20tab 1-2 tabs by Justinriamrita s mouth every Andres, - 6 hours as CNM 03/17 needed nausea No Active 09/03 Hx Unknown Medications /2017 - 09/03 No Active 09/03 Hx Unknown Medications /2017 - 09/03 Tranexamic Acid 03/15 Hx Tablets 650mg 30tab take two Phaelon s tabs by MD Mariel - mouth three 02/09 times a day when menses starts, maximum of 5 days per month Medroxyprogesteron 03/15 Hx Tablets 10mg 10tab take 1 tab Phaelon e Acetate s by mouth MD Mariel - twice daily 02/09 for 5 days /2015 Liletta 03/04 Hx IUD 18.6mcg/D ay - 02/09 Zoloft 02/11 Hx Tablets 50mg 60tab 1 by mouth F32.0 Tiffany /2014 s every day Jump, - ANP-C 02/09 Ferrous Gluconate 01/22 Hx Tablets 324(38Fe) 60tab one tablet Tiffany /2014 mg s by mouth Jump, - once a day ANP-C 09/03 Colace 01/22 Hx Capsules 100mg 30cap 1 by mouth Tiffany s every day Jump, - ANP-C 02/09 Terazol 3 10/29 Hx Cream 0.8% 1unit 1 s applicator Jay, - per vagina CNM 11/03 at bedtime /2014 x3 Ferrous Gluconate 09/27 Hx Tablets 324(38Fe) 60tab one tablet mg s by mouth Mya, - once a day LM 01/22 Macrobid 09/05 Hx Capsules 100mg 14cap take 1 by Ashil A. s mouth twice Gelber, - a day x 7 M.D. . finish rx Terconazole 08/07 Hx Cream 0.8% 20g use 1 vaginal Zelaya, - applicator 08/26 every night at bedtime x 3 days Ondansetron 05/01 Hx Tablets 8mg 30tab 1 tablet Dispers s under Jay, - tongue CN 05/22 every - hr prn nausea No Active 01/16 Hx Unknown - 05/01 Tri-Sprintec 01/08 Hx Tablets 0.18/0.21 28tab take one Sahil A. 5/0.25 s tablet by Gelber, - mg-35 mcg mouth one M.D. 01/16 time Keflex 04/19 Hx Capsules 500mg 21cap 1 po tid x s 7 days Dmitry, - CN 04/26 Ferrous Gluconate 02/04 Hx Tablets 324(38Fe) 60tab 1 by mouth Anne Velazquez mg s twice a day Manish, - CNM 12/09 Ondansetron Odt 10/12 Hx Tablets 8mg 30tab 1 tablet Shannon Dispers s under Jay, - tongue CN 05/01 every - hr prn nausea Complete 00/00 Hx Unknown /0000 - 01/16 Vitamin / Hx Unknown /0000 - 01/22 Metoclopramide HCL Hx Unknown /0000 - 10/29 Ortho-Cyclen (28) 00/00 Hx Unknown /0000 - 03/26 Reglan 00/00 Hx Unknown /0000 - 09/15 Immunizations CPT Code Status Date Vaccine Lot # [id number] Given 01/26/2018 Influenza Vaccine Quadrivalent Preser/Antibiotic [id number] Free Im Use [id number] Given 12/29/2017 Tetnus, Diptheria Toxoids And Acellular Pertussis, [id number] PT > 7Yrs Old [id number] Given 09/26/2014 Tetnus, Diptheria Toxoids And Acellular Pertussis, [id number] PT > 7Yrs Old Vital Signs Date Vital Result Comment 05/11/2018 9:59am BP Systolic 120 mmHg BP Diastolic 74 mmHg Height 67 inches 5'7" Weight 233.00 lb BMI (Body Mass Index) 36.5 kg/m2 5 Parity 3 05/02/2018 1:01pm BP Systolic 110 mmHg BP Diastolic 62 mmHg Height 67 inches 5'7" Weight 233.00 lb BMI (Body Mass Index) 36.5 kg/m2 Last Menstrual Period [id number] 5 Parity 3 01/13/2018 12:00am BP Systolic 112 mmHg BP Diastolic 72 mmHg Body Temperature 98.4 F Heart Rate 64 /min Respiratory Rate 18 /min Height 67 inches Weight 230.00 lb BMI (Body Mass Index) 36.0 kg/m2 09/03/2017 8:12am BP Systolic 112 mmHg BP Diastolic 64 mmHg Height 66.5 inches 5'6.50" Weight 242.00 lb BMI (Body Mass Index) 38.5 kg/m2 Last Menstrual Period [id number] 5 Parity 2 03/26/2016 3:00pm BP Systolic 108 mmHg BP Diastolic 74 mmHg Height 66.5 inches 5'6.50" Weight 269.00 lb BMI (Body Mass Index) 42.8 kg/m2 Last Menstrual Period [id number] 4 Parity 2 02/24/2016 3:24pm BP Systolic 120 mmHg BP Diastolic 76 mmHg Height 66.5 inches 5'6.50" Weight 270.00 lb BMI (Body Mass Index) 42.9 kg/m2 4 Parity 2 02/10/2016 10:06am BP Systolic 120 mmHg BP Diastolic 70 mmHg Height 66.5 inches 5'6.50" Weight 272.00 lb BMI (Body Mass Index) 43.2 kg/m2 4 Parity 2 03/15/2015 9:41am BP Systolic 98 mmHg BP Diastolic 72 mmHg Height 66.5 inches 5'6.50" Weight 244.00 lb BMI (Body Mass Index) 38.8 kg/m2 Last Menstrual Period [id number] 4 Parity 2 02/11/2015 2:12pm BP Systolic 108 mmHg BP Diastolic 64 mmHg Height 66.50 inches 5'6.50" Weight 241.00 lb BMI (Body Mass Index) 38.3 kg/m2 Last Menstrual Period 9372968 4 Parity 2 01/22/2015 1:32pm BP Systolic 114 mmHg BP Diastolic 72 mmHg Height 66.50 inches 5'6.50" Weight 234.00 lb BMI (Body Mass Index) 37.2 kg/m2 Last Menstrual Period 0263502 4 Parity 2 05/22/2014 1:42pm BP Systolic 106 mmHg BP Diastolic 54 mmHg Height 66.50 inches 5'6.50" Weight 236.00 lb BMI (Body Mass Index) 37.5 kg/m2 Last Menstrual Period [id number] 4 Parity 1 01/16/2014 1:11pm BP Systolic 110 mmHg BP Diastolic 76 mmHg Height 66.50 inches 5'6.50" Weight 232.00 lb BMI (Body Mass Index) 36.9 kg/m2 Last Menstrual Period 1305406 3 Parity 1 01/11/2014 11:35am BP Systolic 124 mmHg BP Diastolic 78 mmHg Height 66.50 inches 5'6.50" Weight 246.00 lb BMI (Body Mass Index) 39.1 kg/m2 Last Menstrual Period 8354091 3 Parity 1 01/08/2014 3:13pm BP Systolic 126 mmHg BP Diastolic 74 mmHg Height 66.50 inches 5'6.50" Weight 245.00 lb BMI (Body Mass Index) 38.9 kg/m2 Last Menstrual Period 8502905 3 Parity 1 05/19/2012 8:16am BP Systolic 116 mmHg BP Diastolic 60 mmHg Height 66.50 inches 5'6.50" Weight 211.00 lb BMI (Body Mass Index) 33.5 kg/m2 Last Menstrual Period 8722386 del 04/24/12 1 Parity 1 10/13/2011 1:15pm BP Systolic 100 mmHg BP Diastolic 54 mmHg Height 66.50 inches 5'6.50" Weight 195.00 lb BMI (Body Mass Index) 31.0 kg/m2 Last Menstrual Period [id number] ? 1 Parity 0 Results Test Date Facility Test Result H/L Range Note Urine Culture And 03/02/2018 [facility] Urine Culture SEE RESULT 1 Sensitivities [place] [address] BELOW [phone] Laboratory test 03/02/2018 [facility] Gardnerella/Ye SEE RESULT 2, 3 finding [place] [address] ast: Vaginal BELOW [phone] Dna Laboratory test 03/02/2018 [facility] Rupture of Negative 4 finding [place] [address] Membranes [phone] Laboratory test 02/16/2018 [facility] B Strep SEE RESULT 5, 6 finding [place] [address] Culture Screen BELOW [phone] Laboratory Studies 01/13/2018 N2N/CCD Import Absolute 0 10^3/ul 0-0.2 Basophils (auto) Absolute Eosinophils (auto) 0 10^3/ul 0-0.6 Absolute Lymphocytes (auto) 0.8 10^3/ul Low 1.0-4.8 Absolute Monocytes (auto) 0.6 10^3/ul 0-0.8 Absolute Neutrophils (auto) 9.7 10^3/ul High 1.5-7.7 Alanine Aminotransferase (Alt/SGPT) 18 U/L 7-52 Albumin 3.4 g/dL 3.2-5.2 Albumin/Globulin Ratio 1.0 1-3 Alkaline Phosphatase 130 U/L High 34-104 Anion Gap 7 mmol/L 2-11 Aspartate Amino Transf (Ast/Sgot) 15 U/L 13-39 BUN/Creatinine Ratio 8.9 8-20 Basophils (%) (Auto) 0.2 % 0-2 Blood Urea Nitrogen 5 mg/dL Low 6-24 Calcium Level 8.8 mg/dL 8.6-10.3 Carbon Dioxide Level 21 mmol/L Low 22-32 Chloride Level 104 mmol/L 101-111 Creatinine 0.56 mg/dL 0.51-0.95 Eosinophils (%) (Auto) 0.1 % 0-6 Estimated GFR () 163.8 Estimated GFR (Non- 135.4 Globulin 3.4 g/dL 2-4 Glucose Level 87 mg/dL 70-100 Hematocrit 31 % Low 35-47 Hemoglobin 9.9 g/dL Low 12.0-16.0 Lipase 26 U/L 11.0-82.0 Lymphocytes (%) (Auto) 7.0 % Low 25-47 Mean Corpuscular Hemoglobin 25 pg Low 27-31 Mean Corpuscular Hemoglobin Concent 32 g/dL 31-36 Mean Corpuscular Volume 77 fL Low 80-97 Mean Platelet Volume 8.8 um3 7.4-10.4 Monocytes (%) (Auto) 5.5 % 0-7 Neutrophils (%) (Auto) 87.2 % High 38-83 Nucleated RBC Absolute Count (auto) 0 10^3/ul Nucleated Red Blood Cells % 0.2 Platelet Count 232 10^3/ul 150-450 Potassium Level 3.8 mmol/L 3.5-5.0 Red Blood Count 4.04 10^6/ul 4.00-5.40 Red Cell Distribution Width 15 % 10.5-15 Sodium Level 132 mmol/L Low 135-145 Total Bilirubin 0.50 mg/dL 0.2-1.0 Total Protein 6.8 g/dL 6.4-8.9 White Blood Count 11.1 10^3/ul High 3.5-10.8 Laboratory 01/13/2018 N2N/CCD Import Lactic Acid 0.8 mmol/L 0.5-2.0 Studies Level Laboratory 01/13/2018 N2N/CCD Import Urine Specific 1.009 Low 1.010- 1.030 Studies [place] Urine pH 6.0 5-9 Glucose 01/05/2018 [facility] GTT 3HR (SEE NOTE) 7 Tolerance 3HR [place] [address] Gestational Gestational [phone] Laboratory 12/24/2017 N2N/CCD Import Glucose 1 Hour 140 mg/dL 70-16 Studies Postprandial 0 CBC With No Diff 12/24/2017 [facility] White Blood Count 11.4 High 3.5-1 [place] [address] 10^3/uL 0.8 [phone] Red Blood Count 4.20 10^6/uL N 4.00-5.40 Hemoglobin 10.7 g/dL Low 12.0-16.0 Hematocrit 32 % Low 35-47 Mean Corpuscular Volume 77 fL Low 80-97 Mean Corpuscular Hemoglobin 25 pg Low 27-31 Mean Corpuscular HGB Conc 33 g/dL N 31-36 Red Cell Distribution Width 15 % N 10.5-15 Platelet Count 219 10^3/uL N 150-450 Mean Platelet Volume 9.2 um3 N 7.4-10.4 Laboratory test 12/24/2017 [facility] Glucose 1 HR 140 mg/dL N 70-160 8 [place] [address] Post Prandial [phone] Urine Drug Comp 10/05/2017 [facility] Urine Negative 9 20 [place] [address] Amphetamine ng/mL [phone] Urine Barbiturates Negative ng/mL 10 Urine Benzodiazepines Negative ng/mL 11 Urine Cocaine Negative ng/mL 12 Urine Phencyclidine Negative ng/mL Cutoff: 25 Urine Tetrahydrocannabinol Negative ng/mL Cutoff: 50 13 Creatinine, Urine 159.1 mg/dL Specific [place] 1.009 pH 7.4 Oxidants Negative 14 Adulterants Comment Normal Codeine, Ur Not Detected ng/mL Cutoff: 25 15 Frjtfhf-3-ztqe-glucuronide, Ur Not Detected ng/mL 16 Morphine, Ur Not Detected ng/mL Cutoff: 25 17 Kimjwzob-2-dvig-glucuronide, U Not Detected ng/mL 18 6-monoacetylmorphine, Ur Not Detected ng/mL Cutoff: 25 19 Hydrocodone, Ur Not Detected ng/mL Cutoff: 25 20 Norhydrocodone, Ur Not Detected ng/mL Cutoff: 25 21 Dihydrocodeine, Ur Not Detected ng/mL Cutoff: 25 22 Hydromorphone, Ur Not Detected ng/mL Cutoff: 25 23 Ywipvbtmqmkjm6twedhcjlupmuklr Not Detected ng/mL 24 Oxycodone, Ur Not Detected ng/mL Cutoff: 25 25 Noroxycodone, Ur Not Detected ng/mL Cutoff: 25 26 Oxymorphone, Ur Not Detected ng/mL Cutoff: 25 27 Wwvmmhgyoev-3-xyud-glucuronide Not Detected ng/mL 28 Noroxymorphone, Ur Not Detected ng/mL Cutoff: 25 29 Fentanyl, Ur Not Detected ng/mL Cutoff: 2 30 Norfentanyl, Ur Not Detected ng/mL Cutoff: 2 31 Meperidine, Ur Not Detected ng/mL Cutoff: 25 32 Normeperidine, Ur Not Detected ng/mL Cutoff: 25 33 Naloxone, Ur Not Detected ng/mL Cutoff: 25 34 Pknqsgof-5-sfti-glucuronide, U Not Detected ng/mL 35 Methadone, Ur Not Detected ng/mL Cutoff: 25 36 Eddp, Ur Not Detected ng/mL Cutoff: 25 37 Propoxyphene, Ur Not Detected ng/mL Cutoff: 25 38 Norpropoxyphene, Ur Not Detected ng/mL Cutoff: 25 39 Tramadol, Ur Not Detected ng/mL Cutoff: 25 40 O-desmethyltramadol, Ur Not Detected ng/mL Cutoff: 25 41 Tapentadol, Ur Not Detected ng/mL Cutoff: 25 42 N-desmethyltapentadol, Ur Not Detected ng/mL Cutoff: 50 43 Yrbrdpfftc-atci-habqptafzwo, U Not Detected ng/mL 44 Buprenorphine, Ur Not Detected ng/mL Cutoff: 5 45 Norbuprenorphine, Ur Not Detected ng/mL Cutoff: 5 46 Norbuprenorphine glucuronide Not Detected ng/mL Cutoff: 20 47 Opioid Interpretation See Comment 48 PNL No 09/03/2017 [facility] Rubella Screen Immune Immune 49 [place] [address] [phone] Hemoglobin A1c 5.2 % N 4.0-5.6 50 Hepatitis B Surface Ag Nonreactive Nonreactive 51 Syphillis Igg W/Reflex RPR Nonreactive Nonreactive 52 CBC With No 09/03/2017 [facility] White Blood 7.9 10^3/uL N 3.5-10.8 [place] [address] Count [phone] Red Blood Count 4.60 10^6/uL N 4.0-5.4 Hemoglobin 11.0 g/dL Low 12.0-16.0 Hematocrit 35 % N 35-47 Mean Corpuscular Volume 75 fL Low 80-97 Mean Corpuscular Hemoglobin 24 pg Low 27-31 Mean Corpuscular HGB Conc 32 g/dL N 31-36 Red Cell Distribution Width 17 % High 10.5-15 Platelet Count 194 10^3/uL N 150-450 Mean Platelet Volume 9.0 um3 N 7.4-10.4 Type And Screen 09/03/2017 [facility] Patient Blood Type O Positive [place], [place] [id number] [phone] Antibody Screen NEGATIVE HIV 1/2 AB 09/03/2017 [facility] HIV 1 2 Nonreactive Nonreactive 53 [place] [address] Antibody [phone] Lead 09/03/2017 [facility] Lead,Venous, < 1.0 g/dL 0.0-4.9 54 [place] [address] B [phone] Submitting Laboratory Phone [phone] Parvovirus B19 09/03/2017 [facility] Parvovirus Positive Abnormal Negative Igg & [place] [address] (B19) IgG [phone] Antibody Parvovirus (B19) IgM Antibody Negative Negative Parvovirus Interpretation See Comment 56 Laboratory test 09/03/2017 [facility] Cytology SEE RESULT 57 [place] [address] BELOW [phone] GC/Chlamydia 09/03/2017 [facility] Chlamydia Negative [place] [address] trachomatis Rna [phone] Neisseria gonorrhoeae (GC) Rna Negative Negative Urine Culture And 09/03/2017 [facility] Urine Culture SEE RESULT 58 [place] [address] BELOW [phone] Thyroid Function 02/10/2016 [facility] Thyroid Stim 2.1 mIU/L N 0.3-4 [address] [place] [address] Hormone .2 [phone] CBC With No Diff 02/10/2016 [facility] White Blood 9.2 10^3/uL N 3.5-1 [place] [address] Count 0.8 [phone] Red Blood Count 4.80 10^6/uL N 4.0-5.4 Hemoglobin 10.1 g/dL Low 12.0-16.0 Hematocrit 33 % Low 35-47 Mean Corpuscular Volume 69 fL Low 80-97 Mean Corpuscular Hemoglobin 21 pg Low 27-31 Mean Corpuscular HGB Conc 31 g/dL N 31-36 Red Cell Distribution Width 18 % High 10.5-15 Platelet Count 259 10^3/uL N 150-450 Mean Platelet Volume 9 um3 N 7.4-10.4 CBC Auto Diff 01/22/2015 [facility] White Blood 9.9 10^3/uL N 4.8-10.8 [place] [address] Count [phone] Red Blood Count 4.38 10^6/uL N 4.0-5.4 Hemoglobin 9.1 g/dL Low 12.0-16.0 Hematocrit 30 % Low 35-47 Mean Corpuscular Volume 68 fL Low 80-97 Mean Corpuscular Hemoglobin 21 pg Low 27-31 Mean Corpuscular HGB Conc 31 g/dL N 31-36 Red Cell Distribution Width 19 % High 10.5-15 Platelet Count 248 10^3/uL N 150-450 Mean Platelet Volume 8 um3 N 7.4-10.4 Abs Neutrophils 7.8 10^3/uL High 1.5-7.7 Abs Lymphocytes 1.7 10^3/uL N 1.0-4.8 Abs Monocytes 0.3 10^3/uL N 0-0.8 Abs Eosinophils 0.1 10^3/uL N 0-0.6 Abs Basophils 0 10^3/uL N 0-0.2 Abs Nucleated RBC 0.01 10^3/uL N Granulocyte % 78.3 % N 38-83 Lymphocyte % 17.5 % Low 25-47 Monocyte % 3.2 % N 1-9 Eosinophil % 0.8 % N 0-6 Basophil % 0.2 % N 0-2 Nucleated Red Blood Cells % 0.1 N Type And Screen 12/17/2014 [facility] Patient Blood O Positive N 60 [place] [address] Type [phone] Antibody Screen NEGATIVE N CBC With No 12/17/2014 [facility] White Blood 16.5 10^3/uL High 4.8-10.8 [place] [address] Count [phone] Red Blood Count 4.15 10^6/uL N 4.0-5.4 Hemoglobin 8.8 g/dL Low 12.0-16.0 Hematocrit 29 % Low 35-47 Mean Corpuscular Volume 69 fL Low 80-97 Mean Corpuscular Hemoglobin 21 pg Low 27-31 Mean Corpuscular HGB Conc 31 g/dL N 31-36 Red Cell Distribution Width 17 % High 10.5-15 Platelet Count 170 10^3/uL N 150-450 Mean Platelet Volume 9 um3 N 7.4-10.4 Laboratory test 11/21/2014 [facility] Genital For SEE RESULT 61 [place] [address] GRP B Strep BELOW [phone] Only CBC With No Diff 10/14/2014 [facility] White Blood 11.4 10^3/uL High 4.8-1 [place] [address] Count 0.8 [phone] Red Blood Count 3.52 10^6/uL Low 4.0-5.4 Hemoglobin 8.2 g/dL Low 12.0-16.0 Hematocrit 26 % Low 35-47 Mean Corpuscular Volume 75 fL Low 80-97 Mean Corpuscular Hemoglobin 24 pg Low 27-31 Mean Corpuscular HGB Conc 31 g/dL N 31-36 Red Cell Distribution Width 16 % High 10.5-15 Platelet Count 189 10^3/uL N 150-450 Mean Platelet Volume 9 um3 N 7.4-10.4 CBC With No 10/13/2014 [facility] White Blood 19.4 10^3/uL High 4.8-10.8 [place] [address] Count [phone] Red Blood Count 4.03 10^6/uL N 4.0-5.4 Hemoglobin 9.4 g/dL Low 12.0-16.0 Hematocrit 30 % Low 35-47 Mean Corpuscular Volume 75 fL Low 80-97 Mean Corpuscular Hemoglobin 23 pg Low 27-31 Mean Corpuscular HGB Conc 31 g/dL N 31-36 Red Cell Distribution Width 16 % High 10.5-15 Platelet Count 244 10^3/uL N 150-450 Mean Platelet Volume 8 um3 N 7.4-10.4 Comp Metabolic Panel 10/13/2014 [facility] Sodium 132 mmol/L Low 133-145 [place], [place] [address] [phone] Potassium 3.8 mmol/L N 3.5-5.0 Chloride 105 mmol/L N 101-111 Co2 Carbon Dioxide 18 mmol/L Low 22-32 Anion Gap 9 mmol/L N 2-11 Glucose 98 mg/dL N 70-100 Blood Urea Nitrogen 6 mg/dL N 6-24 Creatinine 0.56 mg/dL N 0.51-0.95 BUN/Creatinine Ratio 10.7 N 8-20 Calcium 8.7 mg/dL N 8.6-10.3 Total Protein 6.7 g/dL N 6.4-8.9 Albumin 3.2 g/dL N 3.2-5.2 Globulin 3.5 g/dL N 2-4 Albumin/Globulin Ratio 0.9 Low 1-3 Total Bilirubin 0.50 mg/dL N 0.2-1.0 Alkaline Phosphatase 134 U/L High 34-104 Alt 17 U/L N 7-52 Ast 14 U/L N 13-39 Egfr Non- 141.0 N >60 Egfr 181.3 N >60 62 Urinalysis Profile 10/13/2014 [facility] [place] [address] [phone] Urine Appearance Cloudy N Urine Specific [place] 1.021 N 1.010-1.030 Urine pH 5.0 N 5-9 Urine Urobilinogen Negative N Negative Urine Ketones 1+ Abnormal Negative Urine Protein 1+(30 mg/dL) Abnormal Negative Urine Leukocytes 1+ Abnormal Negative Urine Blood Negative N Negative Urine Nitrite Negative N Negative Urine Bilirubin Negative N Negative Urine Glucose 1+(50 mg/dL) Abnormal Negative Urine White Blood Cell 3+(>20/hpf) Abnormal Absent Urine Red Blood Cell 3+(>10/hpf) Abnormal Absent Urine Bacteria Absent N Absent Urine Squamous Epithelial Cell Present Abnormal Absent Urine Culture And 10/13/2014 [facility] Urine Culture SEE RESULT 63 [place] [address] BELOW [phone] Laboratory test 09/26/2014 [facility] Glucose 1 HR 119 mg/dL N 70-16 [place] [address] Post Prandial 0 [phone] CBC With No Diff 09/26/2014 [facility] White Blood 14.3 High 4.8-1 [place] [address] Count 10^3/uL 0.8 [phone] Red Blood Count 3.76 10^6/uL Low 4.0-5.4 Hemoglobin 9.0 g/dL Low 12.0-16.0 Hematocrit 29 % Low 35-47 Mean Corpuscular Volume 77 fL Low 80-97 Mean Corpuscular Hemoglobin 24 pg Low 27-31 Mean Corpuscular HGB Conc 31 g/dL N 31-36 Red Cell Distribution Width 16 % High 10.5-15 Platelet Count 238 10^3/uL N 150-450 Mean Platelet Volume 9 um3 N 7.4-10.4 Urine Culture And 09/05/2014 [facility] Urine Culture SEE RESULT 64 [place] [address] BELOW [phone] Parvovirus B19 AB 05/22/2014 [facility] Parvovirus B19 0.2 index <0.9 65 (Igg,M) AB (Igm) Parvovirus B19 AB (Igg) 7.1 index High <0.9 Toxoplasma AB(Igg,M),Eia 05/22/2014 [facility] Toxoplasma Igg AB <0.91 66 Toxoplasma Igm AB NEGATIVE PNL No 05/22/2014 [facility] Rubella Screen Immune IU/ mL N Immune 67 [place] [address] [phone] Hemoglobin A1c 5.7 % N Less than 6.0 68 Hepatitis B Surface Antigen Nonreactive N Nonreactive 69 RPR 05/22/2014 [facility] Syphilis IgG TNP [place] [address] [phone] RPR Nonreactive N Nonreactive RPR Titer TNP N Pediatric/Maternal YES N CBC With No 05/22/2014 [facility] White Blood 8.3 10^3/uL N 4.8-10.8 [place] [address] Count [phone] Red Blood Count 4.49 10^6/uL N 4.0-5.4 Hemoglobin 11.0 g/dL Low 12.0-16.0 Hematocrit 34 % Low 35-47 Mean Corpuscular Volume 76 fL Low 80-97 Mean Corpuscular Hemoglobin 25 pg Low 27-31 Mean Corpuscular HGB Conc 33 g/dL N 31-36 Red Cell Distribution Width 17 % High 10.5-15 Platelet Count 233 10^3/uL N 150-450 Mean Platelet Volume 9 um3 N 7.4-10.4 Type And Screen 05/22/2014 [facility] Patient Blood [place] [address] [phone] Antibody Screen NEGATIVE N HIV 1/2 AB 05/22/2014 [facility] HIV 1 2 Nonreactive N Nonreactive [address] [place] [address] Antibody [phone] GC/Chlamydia 05/22/2014 [facility] Chlamydia Negative N [place] [address] trachomatis [phone] Rna Neisseria gonorrhoeae (GC) Rna Negative N Negative 71 Urine Culture And 05/22/2014 [facility] Urine Culture (SEE 72 [place] [address] NOTE) [phone] Laboratory test 01/29/2014 [facility] Beta HCG < 2.10 N 0.0- 73 [place] [address] Quantitative IU/mL 5.0 [phone] Laboratory test 01/16/2014 [facility] Beta HCG 19.35 High 0.0 - 74 [place] [address] Quantitative IU/mL 5.0 [phone] Comp Metabolic 01/11/2014 [facility] Sodium 136 N 133- 75 [place] [address] mmol/L 145 [phone] Potassium 4.0 mmol/L N 3.7-5.6 Chloride 106 mmol/L N 101-111 Co2 Carbon Dioxide 26 mmol/L N 22-32 Anion Gap 4 mmol/L N 2-11 Glucose 108 mg/dL High 70-100 Blood Urea Nitrogen 11 mg/dL N 6-24 Creatinine 0.69 mg/dL N 0.51-0.95 BUN/Creatinine Ratio 15.9 N 8-20 Calcium 8.8 mg/dL N 8.6-10.3 Total Protein 6.5 g/dL N 6.4-8.9 Albumin 3.7 g/dL N 3.2-5.2 Globulin 2.8 g/dL N 2-4 Albumin/Globulin Ratio 1.3 N 1-3 Total Bilirubin 0.30 mg/dL N 0.2-1.0 Alkaline Phosphatase 87 U/L N 34-104 Alt 14 U/L N 7-52 Ast 14 U/L N 13-39 Egfr Non- 110.8 N >60 Egfr 142.5 N >60 76 Laboratory 01/11/2014 [facility] Beta HCG 129.20 High 0.0-5.0 77 [place] [address] Quantitative IU/mL [phone] Type And 01/11/2014 [facility] Patient Blood O [place] [address] Type [phone] Antibody Screen NEGATIVE N CBC With 01/11/2014 [facility] White Blood 7.9 10^3/uL N 4.8- 10.8 [place] [address] Count [phone] Red Blood Count 4.42 10^6/uL N 4.0-5.4 Hemoglobin 10.2 g/dL Low 12.0-16.0 Hematocrit 32 % Low 35-47 Mean Corpuscular Volume 72 fL Low 80-97 Mean Corpuscular Hemoglobin 23 pg Low 27-31 Mean Corpuscular HGB Conc 32 g/dL N 31-36 Red Cell Distribution Width 16 % High 10.5-15 Platelet Count 236 10^3/uL N 150-450 Mean Platelet Volume 8 um3 N 7.4-10.4 Abs Neutrophils 5.8 10^3/uL N 1.5-7.7 Abs Lymphocytes 1.7 10^3/uL N 1.0-4.8 Abs Monocytes 0.3 10^3/uL N 0-0.8 Abs Eosinophils 0.1 10^3/uL N 0-0.6 Abs Basophils 0 10^3/uL N 0-0.2 Abs Nucleated RBC 0.01 10^3/uL N Neutrophil % 70 % N 38-83 Band % 1 % N 0-8 Lymphocytes % 24 % Low 25-47 Monocytes % 2 % N 0-13 Basophil % 1 % N 0-2 Reactive Lymph % 2 % N 0-6 Microcytosis 1+ N Hypochromasia 1+ N Laboratory test 01/11/2014 [facility] Pathologist (SEE NOTE) N [address] [place] [address] Review [phone] Laboratory test 01/08/2014 [facility] Beta HCG 1764.00 High 0.0- [address] [place] [address] Quantitative IU/mL 5.0 [phone] Urinalysis 04/19/2012 [facility] Urine Color Yellow W/[place] [address] [phone] Urine Appearance Clear Urine Specific [place] 1.018 1.010-1.030 Urine Esterase 3+ Abnormal Negative Urine Nitrate Negative Negative Urine Urobilinogen Negative E.U./dL Negative Urine Protein Negative mg/dL Negative Urine pH 6.5 5-9 Urine Blood Negative Negative Urine Ketones Negative mg/dL Negative Urine Bilirubin Negative Negative 80 Urine Glucose Negative mg/dL Negative Urine WBC 2+ (>10-30 /hpf) None Seen 81 Urine Epithelial Cells 2+ Squamous /hpf None Seen Bacteria Urine 2+ None Seen Urine Culture And 04/19/2012 [facility] Urine Culture (SEE NOTE ) [address] [place] [address] [phone] Laboratory test 03/23/2012 [facility] B Strep (SEE NOTE) [address] [place] [address] Culture [phone] Screen Anemia Profile 03/09/2012 [facility] Ferritin < 10 ng/mL Low 11-30 [place] [address] 7 [phone] Reticulocyte Count 03/09/2012 [facility] Retic Count 1.9 % High 0.5-1 [place] [address] .5 [phone] Corrected Retic Count 1.2 % 0.5-1.5 Maturation Factor Retic 2.0 Retic Index 0.60 Mean Retic Volume 88.6 Immature Retic Fraction 0.55 RBC Retic Count 3.87 10^6/uL Low 4.6-6.2 Hematocrit for Retic CNT 29 % Low 35-47 CBC With 03/09/2012 [facility] White Blood 15.0 10^3/uL High 4.8-10.8 [place] [address] Count [phone] Red Blood Count 3.87 10^6/uL Low 4.0-5.4 Hemoglobin 9.0 g/dL Low 12.0-16.0 Hematocrit 29 % Low 35-47 Mean Corpuscular Volume 75 fL Low 80-97 Mean Corpuscular Hemoglobin 23 pg Low 27-31 Mean Corpuscular HGB Conc 31 g/dL 31-36 Red Cell Distribution Width 15 % 10.5-15 Platelet Count 254 10^3/uL 150-450 Mean Platelet Volume 9 um3 7.4-10.4 Abs Neutrophils 12.5 10^3/uL High 1.5-7.7 Abs Lymphocytes 1.8 10^3/uL 1.0-4.8 Abs Monocytes 0.6 10^3/uL 0-0.8 Abs Eosinophils 0 10^3/uL 0-0.6 Abs Basophils 0 10^3/uL 0-0.2 Abs Nucleated RBC 0.01 10^3/uL Neutrophil % 77.0 % 38-83 Band % 1.0 % 0-8 Lymphocytes % 18.0 % Low 25-47 Monocytes % 3.0 % 0-13 Eosinophils % 1.0 % 0-6 Basophil % 0 % 0-2 Reactive Lymph % 0 % 0-6 Metamyelocytes % 0 % 0-2 Myelocytes % 0 % 0-1 Promyelocytes % 0 % Blast % 0 % Microcytosis 1+ Hypochromasia 1+ Hemoglobin 03/09/2012 [facility] Hemoglobin A2 2.6 % 2.0-3.3 [place] [address] [phone] Hemoglobin F 0.0 % 0.0-0.9 Hemoglobin A 97.4 % 95.8-98.0 Variant Hemoglobin 0.0 % 84 Hemoglobin Electro Interp See Comment 85 Iron & Iron Binding 03/09/2012 [facility] Iron 28 UG/ML 28- [address] [place] [address] [phone] Unsaturated Iron Binding 553 g/dL Total Iron Binding Capacity 581 g/dL High 250-450 Transferrin 415.2 % Iron Saturation 5 % Low 15-55 Glucose 01/19/2012 [facility] GTT 2HR (SEE NOTE) 86 Tolerance 2HR [place] [address] Gestational Gestational [phone] CBC With No Diff 01/19/2012 [facility] White Blood 15.0 High 4.8-1 [place] [address] Count 10^3/uL 0.8 [phone] Red Blood Count 3.93 10^6/uL Low 4.0-5.4 Hemoglobin 10.1 g/dL Low 12.0-16.0 Hematocrit 32 % Low 35-47 Mean Corpuscular Volume 81 fL 80-97 Mean Corpuscular Hemoglobin 26 pg Low 27-31 Mean Corpuscular HGB Conc 32 g/dL 31-36 Red Cell Distribution Width 15 % 10.5-15 Platelet Count 225 10^3/uL 150-450 Mean Platelet Volume 9 um3 7.4-10.4 Sequential Integreated SCRN 2 AL 11/13/2011 [facility] Interpretation SEE BELOW 87 Risk For Ontd <1:5000 Age Risk Down Syndrome 1:1200 RON Down Syndrome Risk <1:5000 <1:270 RON Trisomy 18 Risk <1:5000 <1:100 Calculated Gestational Age 16.4 88 Afp,Serum 21.9 NG/ML Afp Mom 0.66 89 HCG,Serum 32.8 IU/mL HCG Mom 1.55 Estriol,Free 0.58 NG/ML Estriol Mom 1.02 Inhibin A,Dimeric 129 pg/mL Inhibin A Mom 0.85 Balaji-A 1120 NG/ML Balaji-A Mom 1.86 NT Mom 1.16 90 Referring Physician Name SAHIL KHAN Juanita Referring Physician Referring Physician Npi [id number] Specimen # From Part 1 [id number] Date Of 1995 Collection Date 11/13/2011 Maternal Weight 195 LBS Est'd Date Of Delivery 04/24/2012 Nuchal Translucency 1.60 MM [place] Rump Length 60 MM Ultrasound Date 10/15/2011 Nasal Bone NG Mother's Ethnic Origin WHITE Insulin Depend Diabetic N Repeat Specimen N Number Of Fetuses 1 HX Of Neural Tube Defects N Twin B Nasal Bone NG CBC No Diff 11/13/2011 [facility] White Blood Count 10.7 CUMM 4.8-10.8 [place] [address] [phone] Red Cell Count 4.39 CUMM 4.2-5.4 Hemoglobin 11.2 g/dL Low 12.0-16.0 Hematocrit 34 % Low 35-47 Mean Corpuscular Volume 77 um3 Low 79-97 Mean Corpuscular Hemoglob 26 pg Low 27-31 Mean Corpuscular HGB Cone 33 g/dL 32-36 Redcell Distribution WDTH 19 % High 10.5-15 Platelet Count 200 CUMM 150-450 Mean Platelet Volume 8.9 um3 7.4-10.4 Type & Screen 11/13/2011 [facility] Patient Blood [place] [address] [phone] Antibody Screen NEGATIVE Vad 11/13/2011 [facility] Vad Final Nonreactive Nonreactive [address] [place] [address] [phone] Syphilis 11/13/2011 [facility] Syphilis IgG TNP [place] [address] [phone] RPR NON-REACTIVE Nonreactive RPR Titer TNP Pediatric/Maternal YES Prental PNL 11/13/2011 [facility] Hepatitis B Nonreactive Non[place] [address] Surface Ag [phone] Rubella Screen IMMUNE Immune Hemoglobin A1c 5.5 % Less Than 6.0 92 Sequential Integrated SCRN 1 AL 10/15/2011 [facility] Interpretation SEE BELOW 93 Age Risk Down Syndrome 1:860 RON Down Syndrome Risk IN PROCESS <1:50 RON Trisomy 18 Risk IN PROCESS <1:100 Calculated Gestational Age 12.3 94 Balaji-A 1120 NG/ML Balaji-A Mom 1.86 HCG,Serum 67.8 IU/mL HCG Mom 1.45 NT Mom 1.16 95 Referring Physician Name SAHILMARILEE KHAN Referring Physician Referring Physician Npi [id number] Date Of 1995 Collection Date 10/15/2011 Maternal Weight 195 LBS Est'd Date Of Delivery 04/24/2012 [place] Determined By U/S Mother's Ethnic Origin Number Of Fetuses 1 Insulin Depend Diabetic NO Repeat Specimen NO HX Of Neural Tube Defects NO Brief History (NTD) N/A Prev Down Synd NO Donor Egg N/A Donor Age:Egg Retrieval N/A Ultrasound Date Contract Administration Manager's Name FATMATA NTQR Contract Administration Manager Id# [id number] NTQR Location Id# [id number] NTQR Reading Phys Id# [id number] FMF Contract Administration Manager Id# NG [place] Rump Length 60MM MM Nuchal Translucency 1.6MM MM Nasal Bone NG If Twins NG Twin B CRL NG MM Twin B NT NG MM Twin B Nasal Bone NG Urine Culture & 10/13/2011 [facility] M [address] [place] [address] <SEE NOTE> [phone] Laboratory test 10/13/2011 [facility] GC/Chlamydia --- [address] [place] [address] Amplified Rna <SEE NOTE> [phone] 1 SEE RESULT BELOW Name: KERRIE BARON : [address]: Reina Sharma [facility] Acct: [id number] Unit: [id number] AGE: 22 Location: [facility] Re03/02/18 SEX: F Status: DEP REF SPEC: [id number] FAHAD: 03/02/[address] [facility] [address]: Reina Sharma [facility] REQ: [id number] RECD: 03/02/18 STATUS: KIRA TORRES DR: Ras Abreu MD _ SOURCE: URINE SPDESC: ORDERED: Urine Culture Procedure Result Reported Site Urine Culture Final 03/03/18- 1217 ML No Growth (<1,000 CFU/mL) * ML - Main Lab . END OF REPORT DEPARTMENT OF PATHOLOGY, [address] [place] [address] Kaushik Mejias M.D. Director [facility] # [id number] 2 Would you like to order Trichomonas Vaginalis RNA testing? Y 3 SEE RESULT BELOW Name: KERRIE BARON : [address]: Reina Sharma CNM Acct: [id number] Unit: [id number] AGE: 22 Location: [facility] Re03/02/18 SEX: F Status: DEP REF SPEC: [id number] FAHAD: 03/02/18-[address]: Reina Sharma CNM REQ: [id number] RECD: 03/02/18123 STATUS: COMP MELISSA DR: Ras Abreu MD _ SOURCE: VAGINAL SPDESC: ORDERED: Felipa,Yeast DNA, Trich DNA COMMENTS: Would you like to order Trichomonas Vaginalis RNA testing? Y Procedure Result Reported Site Gardnerella/Yeast: Vaginal DNA Final 03/02/18- 1608 ML Organism 1 Negative Inecy Organism 2 POSITIVE GARDNERELLA The presence of G. vaginalis, although suggestive, is not diagnostic for bacterial vaginosis. Results should be interpreted in conjuction with other clinical and laboratory data available. Women with vaginal discharge should be evaluated for risk factors of cervicitis and pelvic inflammatory disease, toxic shock syndrome (S.aureus), and if present, evaluated for organisms not included in this assay such as N. gonorrhoeae, C. trachomatis, Mobiluncus, Mycoplasma and/or Prevotella. Mixed infections may occur. The performance of this test on patient specimens collected during or immediately after antimicrobial therapy is unknown. The presence or absence of Inecy species, or G. vaginalis cannot be used as a test for therapeutic success or failure. Trichomonas: Vaginal DNA Probe Final 03/02/18- 1608 ML Organism 1 Negative Trichomonas The presence or absence of T. vaginalis cannot be used as a test for therapeutic success or failure. * - Main Lab . END OF REPORT DEPARTMENT OF PATHOLOGY, [address] [place] [address] Kaushik Mejias M.D. Director [facility] # [id number] 4 A NEGATIVE results indicates there is no evidence of membrane rupture. 5 [id number] 6 SEE RESULT BELOW Name: KERRIE BARON : [address]: Tawana Thompson CNM Acct: [id number] Unit: [id number] AGE: 22 Location: [facility] Re02/16/18 SEX: F Status: REG REF SPEC: [id number] FAHAD: 02/16/18-[address] [facility] [address]: Tawana Thompson [facility] REQ: [id number] RECD: 02/16/18-155 STATUS: COMP _ SOURCE: CER/VAG/RE SPDESC: ORDERED: Grp B Strp Scrn COMMENTS: [id number] QUERIES: Is Patient Penicillin Allergic? N Is patient penicillin allergic and/or sensitivities needed? N Provider Requisition # C77#[id number]_ Procedure Result Reported Site Group B Strep Culture Screen Final 02/18/18- 1339 ML Group B Strep Screen Negative * ML - Main Lab . END OF REPORT DEPARTMENT OF PATHOLOGY, [address] [place] [address] Kaushik Mejias M.D. Director [facility] # [id number] GLU Fast 93 Col: 01/05/18 1113 CORRECTED REPORT --- Corrected on 01/06/18 1110 --- Fasting Glucose previously reported as: 121 H mg/dL GLU 1HR 157 Col: 01/05/18 1213 CORRECTED REPORT --- Corrected on 01/06/18 1111 --- 1 HR Glucose previously reported as: 93 mg/dL GLU 2HR 136 Col: 01/05/18 1313 GLU 3HR 121 Col: 01/05/18 1413 CORRECTED REPORT --- Corrected on 01/06/18 1111 --- 3HR Glucose previously reported as: 157 mg/dL GLU Interp Col: 01/05/18 1113 GTT normal ranges for obstetrics per the [place] [employer] (ACOG).Based on 100 gm glucose load: Fasting <95 mg/dl 1hr <180 mg/dl 2hr <155 mg/dl 3hr <140 mg/dl 8 patient will present to [facility] to be drink glucose and be drawn 9 REFERENCE VALUE Cutoff: 500 10 REFERENCE VALUE Cutoff: 200 11 REFERENCE VALUE Cutoff: 100 12 REFERENCE VALUE Cutoff: 150 13 ADDITIONAL INFORMATION This report is intended for use in clinical monitoring or management of patients. It is not intended for use in employment-related testing. 14 REFERENCE VALUE Cutoff: 200 mg/L 15 Tylenol 3 16 Metabolite of codeine REFERENCE VALUE Cutoff: 100 17 Veena Triplett, Contin; Also a minor metabolite (10%) of codeine and can be seen in low concentrations (<2,000 ng/mL) with poppy seed ingestion. 18 Metabolite of morphine REFERENCE VALUE Cutoff: 100 19 Metabolite of heroin 20 Lortab, [place], Vicodin; Also a very minor metabolite of codeine and impurity (<1%) of oxycodone. 21 Metabolite of hydrocodone 22 Metabolite of hydrocodone 23 Dilaudid, Exalgo; Also a metabolite of hydrocodone and a minor (<5%) metabolite of morphine. 24 Metabolite of hydromorphone REFERENCE VALUE Cutoff: 100 25 Endocet, Percocet, Oxycontin 26 Metabolite of oxycodone 27 Numorphan, Opana; Also a metabolite of oxycodone. 28 Metabolite of oxymorphone REFERENCE VALUE Cutoff: 100 29 Metabolite of oxymorphone 30 Actiq, Duragesic, Fentora 31 Metabolite of fentanyl 32 Demerol 33 Metabolite of meperidine 34 Narcan 35 Metabolite of naloxone REFERENCE VALUE Cutoff: 100 36 Dolophine 37 Metabolite of methadone 38 Darvon, Darvocet 39 Metabolite of propoxyphene 40 Tradol, Ultram, Ultracet 41 Metabolite of tramadol 42 Nucynta 43 Metabolite of tapentadol 44 Metabolite of tapentadol REFERENCE VALUE Cutoff: 100 45 Buprenex, Suboxone 46 Metabolite of buprenorphine 47 Metabolite of buprenorphine 48 No opioids were detected. The absence of expected drug(s) and/or drug metabolite(s) may indicate non-compliance, altered pharmacokinetics, inappropriate timing of specimen collection relative to drug administration, diluted/adulterated urine, or limitations of testing. ADDITIONAL INFORMATION This test was developed and its performance characteristics determined by [facility] in a manner consistent with CLIA requirements. This test has not been cleared or approved by the U.S. Food and Drug Administration. Test Performed by: [facility] - [address] [address] 49 [id number] Therapeutic target for the treatment of diabetes mellitus patients is <7% HBA1C, and in selective patients <6.0%. Please refer to [place] [employer] diabetic care guidelines for further information. 51 [id number] Warning: A positive result is not useful for establishing a diagnosis of syphilis. In most situations, such a result may reflect a prior treated infection; a negative result can exclude a diagnosis of syphilis except for incubating or early primary disease. 53 It is recognized that currently available assays for the detection of antibodies to HIV-1 and/or HIV-2 may not detect all infected individuals. HIV antibodies may be undetectable in some stages of the infection and in some clinical conditions. The performance of this assay has not been established for populations of infants or children. Assayed by Chemiluminescence Microparticle Immunoassay on the Siemens Advia Centaur CP. Values obtained with different methods or kits cannot be used interchangeably.The diagnostic specificity of the ADVIA Centaur 1/O/2 Enhanced assay in the low risk population was 99.90% (6052/6058) with a 95% confidence interval of 99.78 to 99.96%. 54 ADDITIONAL INFORMATION Testing performed by Inductively Coupled Plasma-Mass Spectrometry (ICP-MS). This test was developed and its performance characteristics determined by [facility] in a manner consistent with CLIA requirements. This test has not been cleared or approved by the U.S. Food and Drug Administration. 55 Test Performed by: [facility] - [address] [address] 56 RESULT: Results suggest past infection. ADDITIONAL INFORMATION This test has been modified from the java tech lead's instructions. Its performance characteristics were determined by [facility] in a manner consistent with CLIA requirements. This test has not been cleared or approved by the U.S. Food and Drug Administration. Test Performed by: [facility] [address] [place] [address] 57 SEE RESULT BELOW Name: KERRIE BARON : [address]: Indigo Roque CM Acct: [id number] Unit: [id number] AGE: 21 Location: [facility] Re09/03/17 SEX: F Status: REG REF SPEC: [id number] FAHAD: 09/03/[address] [facility] [address]: Indigo Roque CM REQ: [id number] RECD: 09/03/17 STATUS: SOUT _ ORDERED: TP IMAGE ANALYS COMMENTS: [id number] Negative for Intraepithelial lesion or Malignancy A. Ectocervical/Endocervical Specimen Adequacy: Satisfactory of evaluation Transformation zone component identified Patient Information: HPV: Thin Layer Pap Test w/reflex to high risk HPV RNA testing when ASCUS Actual Specimen Date: 09/03/17 Last Menstrual Date: 06/16/17 Spec Date if unknown: unknown ?: Y Post Menopausal?: N Hysterectomy?: N Previous Abnormal Pap Smears?:N Signed by and Reported on: RONDA Bueno (ASCP) [id number] This Pap test was evaluated with the assistance of the Social CollectivePrep Test Imaging System. Due to cytologic findings at the qm nurse microscope, comprehensive manual rescreening by a Material Requirements Worker may be required. The Pap Smear is a screening test designed to aid in the detection of premalignant and malignant conditions of the uterine cervix. It is not a diagnostic procedure and should not be used as the sole means of detecting cervical cancer. Both false- positive and false- negative reports do occur. Depending on your risk status, a Pap smear should be obtained and evaluated every 1-3 years. END OF REPORT DEPARTMENT OF PATHOLOGY, [address] [place] [address] Kaushik Mejias M.D. Director [facility] # [id number] 58 SEE RESULT BELOW Name: KERRIE BARON : [address]: Indigo Roque CM Acct: [id number] Unit: [id number] AGE: 21 Location: [facility] Re09/03/17 SEX: F Status: REG REF SPEC: [id number] FAHAD: 09/03/[address] [facility] [address]: Indigo Roque CM REQ: [id number] RECD: 09/03/17 STATUS: COMP _ SOURCE: URINE SPDESC: ORDERED: Urine Culture COMMENTS: [id number] Urine Source: Random Procedure Result Reported Site Urine Culture Final 09/04/17- 1220 ML No growth of clinically significant organisms * ML - Main Lab . END OF REPORT DEPARTMENT OF PATHOLOGY, [address] [place] [address] Kaushik Mejias M.D. Director [facility] # [id number] 59 Test Performed by: [address] [address] [employer] Scout: Rolly Laughlin II, M.D., Ph.D. 60 /INDUCTION 61 SEE RESULT BELOW Name: KERRIE PALOMARES : [address]: Betty Zelaya MD Acct: [id number] Unit: [id number] AGE: 19 Location: [facility] Re11/21/14 SEX: F Status: REG REF SPEC: [id number] FAHAD: 11/21/14-[address]: Betty Zelaya MD REQ: [id number] RECD: 11/21/14 STATUS: COMP _ SOURCE: IVY/JOE/RE SPDESC: ORDERED: Grp B Strp Scrn QUERIES: Is Patient Penicillin Allergic? N Is patient penicillin allergic and/or sensitivities needed? N Provider Requisition # C77#[id number]_ Procedure Result Verified Site Group B Strep Culture Screen Final 11/23/14- 1321 ML Group B Strep Screen Negative * ML - MAIN LAB ([facility]) . END OF REPORT * ML=Testing performed at Main Lab DEPARTMENT OF PATHOLOGY, [address] [place] [address] Kaushik Mejias M.D. Director [facility] # [id number] 62 Because ethnic data is not always readily available, this report includes an eGFR for both -Americans and non- Americans. The National Kidney Disease Education Program (NKDEP) does not endorse the use of the MDRD equation for patients that are not between the ages of 18 and 70, are , have extremes of body size, muscle mass, or nutritional status, or are non- or non-. According to the National Kidney Foundation, irrespective of diagnosis, the stage of the disease is based on the level of kidney function: Stage Description GFR(mL/min/1.73 m(2)) 1 Kidney damage with normal or decreased GFR 90 2 Kidney damage with mild decrease in GFR 60-89 3 Moderate decrease in GFR 30-59 4 Severe decrease in GFR 15-29 5 Kidney failure <15 (or dialysis) 63 SEE RESULT BELOW Name: KERRIE PALOMARES : [address]: Pollo Rajput MD Acct: [id number] Unit: [id number] AGE: 18 Location: [facility] Re10/13/14 SEX: F Status: DEP REF SPEC: [id number] FAHAD: 10/13/14-[address] [facility] [address]: Pollo Rajput MD REQ: [id number] RECD: 10/13/14 STATUS: COMP _ SOURCE: URINE SPDESC: ORDERED: Urine Culture Procedure Result Verified Site Urine Culture Final 10/15/14- 0917 ML Organism 1 NORMAL [place] Count 75-100,000 (Many) CFU/ML * ML - MAIN LAB ([facility]) . END OF REPORT * ML=Testing performed at Main Lab DEPARTMENT OF PATHOLOGY, [address] [place] [address] Kaushik Mejias M.D. Director [facility] # [id number] 64 SEE RESULT BELOW Name: KERRIE PALOMARES : [address]: Marie Wharton NP Acct: [id number] Unit: [id number] AGE: 18 Location: [facility] Re09/05/14 SEX: F Status: REG REF SPEC: [id number] FAHAD: 09/05/14-[address]: Marie Wharton NP REQ: [id number] RECD: 09/05/14 STATUS: COMP _ SOURCE: URINE SPDESC: ORDERED: Urine Culture Procedure Result Verified Site Urine Culture Final 09/07/14- 1048 ML Organism 1 NORMAL [place] Count >100,000 (Many) CFU/ML * ML - MAIN LAB ([facility]) . END OF REPORT * ML=Testing performed at Main Lab DEPARTMENT OF PATHOLOGY, [address] [place] [address] Kaushik Mejias M.D. Director [facility] # [id number] 65 Reference Range: <0.9 Negative 0.9-1.1 Equivocal >1.1 Positive IgG persists for years and provides life-long immunity. Results from any one IgM assay should not be used as a sole determinant of a current or recent infection. Because IgM tests can yield false positive results and low levels of IgM antibody may persist for months post infection, reliance on a single test result could be misleading. If an acute infection is suspected, consider obtaining a new specimen and submit for both IgG and IgM testing in two or more weeks. To diagnose current infection, consider Parvovirus B19 DNA, PCR. 66 INDEX VALUE RESULTS INTERPRETATION ------- < OR=0.90 NEGATIVE NO TOXOPLASMA IGG ANTIBODY DETECTED 0.91 - 1.09 EQUIVOCAL PRESENCE OR ABSENCE OF TOXOPLASMA IGG ANTIBODY CANNOT BE DISCERNED > OR=1.10 POSITIVE TOXOPLASMA IGG ANTIBODY DETECTED A positive result indicates infection with Toxoplasma gondii at some time, but does not differentiate between an active or past infection. 67 SCREENING NOS 68 Therapeutic target for the treatment of diabetes Mellitus patients is <7% HBA1C, and in selective patients <6.0%.Please refer to [place] [employer] Diabetic care guidelines for further information. 69 YES 70 It is recognized that currently available assays for the detection of antibodies to HIV-1 and/or HIV-2 may not detect all infected individuals. HIV antibodies may be undetectable in some stages of the infection and in some clinical conditions. The performance of this assay has not been established for populations of infants or children. Assayed by Chemiluminescence Microparticle Immunoassay on the Siemens Advia Centaur CP. Values obtained with different methods or kits cannot be used interchangeably.The diagnostic specificity of the ADVIA Centaur 1/O/2 Enhanced assay in the low risk population was 99.90% (6052/6058) with a 95% confidence interval of 99.78 to 99.96%. 71 Female urine specimens have been self-validated by [facility] and have been granted conditional assay approval by [facility]. 72 RUN DATE: 05/24/14 [facility] LIVE PAGE 1 RUN TIME: [address] [place] [address] Specimen Inquiry Name: KERRIE PALOMARES : [address]: Tiffany Rivera CNP Acct: [id number] Unit: [id number] AGE: 18 Location: [facility] Re05/22/14 SEX: F Status: REG REF SPEC: [id number] FAHAD: 05/22/14-[address] [facility] [address]: Tiffany Rivera CNP REQ: [id number] RECD: 05/22/14 STATUS: COMP _ SOURCE: URINE SPDESC: ORDERED: Urine Culture QUERIES: Provider Requisition # [id number] Procedure Result Verified Site Urine Culture Final 05/24/14- 1109 ML Organism 1 NORMAL [place] Count >100,000 (Many) CFU/ML END OF REPORT * ML=Testing performed at Main Lab DEPARTMENT OF PATHOLOGY, [address] [place] [address] Kaushik Mejias M.D. Director [facility] # [id number] 73 <5.0 Negative 5.0 - 25.0 Indeterminate >25.0 Positive 74 <5.0 Negative 5.0 - 25.0 Indeterminate >25.0 Positive 75 PREG COMPL NOS-UNSPEC 76 Because ethnic data is not always readily available, this report includes an eGFR for both -Americans and non- Americans. The National Kidney Disease Education Program (NKDEP) does not endorse the use of the MDRD equation for patients that are not between the ages of 18 and 70, are , have extremes of body size, muscle mass, or nutritional status, or are non- or non-. According to the National Kidney Foundation, irrespective of diagnosis, the stage of the disease is based on the level of kidney function: Stage Description GFR(mL/min/1.73 m(2)) 1 Kidney damage with normal or decreased GFR 90 2 Kidney damage with mild decrease in GFR 60-89 3 Moderate decrease in GFR 30-59 4 Severe decrease in GFR 15-29 5 Kidney failure <15 (or dialysis) 77 <5.0 Negative 5.0 - 25.0 Indeterminate >25.0 Positive 78 CBC and smear reviewed. Microcytic, hypochromic anemia present. Findings consistent with iron deficiency. Reviewed by Joi Samson MD 79 <5.0 Negative 5.0 - 25.0 Indeterminate >25.0 Positive 80 Effective 02/24/12, bilirubin confirmation by ictotest is discontinued. False-positive results for bilirubin may occur due to color interference from large amounts of blood in the urine, very concentrated urine, or drugs that discolor urine such as phenazopyridine(Pyridium). 81 2+ (>10-30 /hpf) 82 RUN DATE: 04/21/12 [facility] LIVE PAGE 1 RUN TIME: [address] [place], [place] [address] Specimen Inquiry Name: KERRIE PALOMARES : [address]: Heraclio Andres [facility] Acct: [id number] Unit: [id number] AGE: 16 Location: [facility] Re04/19/12 SEX: F Status: DEP REF SPEC: [id number] FAHAD: 04/19/12-[address]: Heraclio Andres [facility] REQ: [id number] RECD: 04/19/12 STATUS: KIRA TORRES DR: [facility] _ SOURCE: URINE SPDESC: ORDERED: Urine Culture Procedure Result Verified Site Urine Culture Final 04/21/12- 1034 ML Organism 1 NORMAL SETH Cedar Count 50-75,000 (Many) CFU/ML END OF REPORT * ML=Testing performed at Main Lab DEPARTMENT OF PATHOLOGY, [facility] [employer] [place], [place] [address] Kaushik Mejias M.D. Director [facility] Permit #[id number] RUN DATE: 03/25/12 [facility] LIVE PAGE 1 RUN TIME: 1046 [facility] [employer] [place], [place] [address] Specimen Inquiry Name: KERRIE PALOMARES : [address]: Tiffany Rivera CNP Acct: [id number] Unit: [id number] AGE: 16 Location: [facility] Re03/23/12 SEX: F Status: REG REF SPEC: [id number] FAHAD: 03/23/[address]: Tiffany Rivera CNP REQ: [id number] RECD: 03/23/12 STATUS: COMP _ SOURCE: CX/REC SPDESC: ORDERED: Grp B Strp Scrn QUERIES: Medent Number [id number] Procedure Result Verified Site Group B Strep Culture Screen Final 03/25/12- 1046 ML Group B Strep Screen Negative END OF REPORT * ML=Testing performed at Main Lab DEPARTMENT OF PATHOLOGY, [address] [place] [address] Kaushik Mejias M.D. Director [facility] Permit #[id number] -- REFERENCE VALUE -- No abnormal variants 85 Normal hemoglobin electrophoresis evaluation. No evidence of abnormal hemoglobin or beta thalassemia. Test Performed by: [facility] - [address] [address] [employer] Scout: Judah Oconnell III, M.D. 86 GLU Fast 91 Col: 01/19/12 0815 GLU 1HR 139 Col: 01/19/12 0915 GLU 2HR 99 Col: 01/19/12 1015 GTT Interp Col: 01/19/12 0815 Gestational Diabetes Diagnostic: OGTT Glucose Load: samples drawn after 75-gram glucose drink Target Levels: Fasting <92 mg/dl 1hr <180 mg/dl 2hr <153 mg/dl If ONE or more values meet or exceed the target level, gestational diabetes is diagnosed. 87 SCREEN NEGATIVE FOR OPEN NTD, DOWN SYNDROME AND TRISOMY 18 88 [place] rump length (CRL) was used to calculate gestational age. SHAGUFTA, if provided, was not used for gestational age dating. 89 Reference Range: <2.50 IDD <1.90 TWINS <4.00 TWINS IDD <3.50 TRIPLETS <4.50 90 The Sequential Integrated Screen combines BALAJI-A and hCG with or without a nuchal translucency measurement in the first trimester with AFP, unconjugated estriol, intact hCG and Inhibin A in the second trimester. This provides a useful screening test for detection of open neural tube defects, Down syndrome and Trisomy 18. It should be noted that normal results can never guarantee the of a normal baby and that 2 to 3 percent of newborns have some type of physical or mental defect, many of which are undetectable through any known diagnostic technique. Interpretation reviewed by: Pooja Salas, Ph.D., [facility]. This is a screening test, not a diagnostic test. This risk assessment is based on demographic data provided by the ordering physician. Please notify the laboratory promptly if any data are incorrect. If you have questions concerning this report: For clinical consultation, call ; For technical questions, call ext [phone]; For recalculations, fax to . The following message only applies to the BALAJI-A. This test was performed using a kit that has not been approved or cleared by the FDA. The analytical performance characteristics of this test have been determined by [facility]. This test should not be used for diagnosis without confirmation by other medically established means. 91 It is recognized that currently available assays for the detection of antibodies to HIV-1 and/or HIV-2 may not detect all infected individuals. HIV antibodies may be undetectable in some stages of the infection and in some clinical conditions. The performance of this assay has not been established for populations of infants or children. Assayed by Chemiluminescence Microparticle Immunoassay on the Amelie Advia Centaur CP. Values obtained with different methods or kits cannot be used interchangeably.The diagnostic specificity of the ADVIA Centaur 1/O/2 Enhanced assay in the low risk population was 99.90% (6052/6058) with a 95% confidence interval of 99.78 to 99.96%. 92 THERAPEUTIC TARGET FOR THE TREATMENT OF DIABETES MELLITUS PATIENTS IS <7% HBA1C, AND IN SELECTIVE PATIENTS <6.0%. PLEASE REFER TO [employer] DIABETIC CARE GUIDELINES FOR FURTHER INFORMATION. 93 This patient's risk does not exceed the first trimester cut-off for Down syndrome or trisomy 18. The integrated screen calculation is awaiting the second trimester sample. Thank you for submitting this patient's Part 1 specimen. These first trimester values will be incorporated with the second trimester values as part of the integrated testing process. Please submit the Part 2 specimen between 11/03/2011-12/28/2011 (15.0 and 22.9 weeks gestation) with 11/03/2011-11/16/2011 (15.0 - 16.9 weeks gestation) being optimal. When submitting Part 2, please include the following Specimen # from Part 1: [id number] 94 [place] rump length (CRL) was used to calculate gestational age. SHAGUFTA, if provided, was not used for gestational age dating. 95 Interpretation reviewed by: Benedict Jackson, Ph.D., [facility] This is a screening test, not a diagnostic test. This risk assessment is based on demographic data provided by the ordering physician. Please notify the laboratory promptly if any data are incorrect. If you have questions concerning this report: For clinical consultation, call ; For technical questions, call ext [phone]; For recalculations, fax to . The following message only applies to the BALAJI-A. This test was performed using a kit that has not been approved or cleared by the FDA. The analytical performance characteristics of this test have been determined by [facility]. This test should not be used for diagnosis without confirmation by other medically established means. 96 RUN DATE: 10/15/11 [facility] NMI LIVE PAGE 1 RUN TIME: 1009 Specimen Inquiry RUN USER: INTERFACE Name: KERRIE PALOMARES Status: REG REF Re10/13/11 Age/Sex: 15/F Unit#: [id number] Location: [facility] : 95 SPEC #: [id number] FAHAD: 10/13/11-1320 STATUS: COMP REQ #: [id number] RECD: 10/13/11-[address] [facility] [address]: Tawana Thompson CNM SOURCE: URINE ENTR: 10/13/11-[address] ORDERED: URINE C S COMMENTS: SPECIMEN DESCRIPTION: URINE, CLEAN CATCH QUERIES: MEDENT MEDENT REQUISITION # [id number] SPECIMEN DESCRIPTION: URINE, CLEAN CATCH ACT WKST: UR 10/15/11 #1 Procedure Result Verified Site > URINE CULTURE SENSITIVI Final 10/15/11- 1008 ML SCANT NORMAL URETHRAL OR PERINEAL SETH [facility] Permit #[id number] [address] [place] [address] DEPARTMENT OF PATHOLOGY, [address] [place] [address] [facility] Permit #[id number] Purvi Urias M.D. [employer] 97 RUN DATE: 10/17/11 [facility] NMI LIVE PAGE 1 RUN TIME: 805 Specimen Inquiry RUN USER: INTERFACE Name: KERRIE PALOMARES Status: REG REF Re10/13/11 Age/Sex: 15/F Unit#: [id number] Location: [facility] : 95 SPEC #: [id number] FAHAD: 10/13/11-1340 STATUS: COMP REQ #: [id number] RECD: 10/14/11-[address]: aTwana Thompson CNM SOURCE: ENDOCERVIX ENTR: 10/14/11-[address]: PRESTON: ORDERED: GC/CHLAM RNA ACT WKST: SO 10/16/11 #1 Procedure Result Verified Site > GC/CHLAMYDIA AMPLIFIED RNA Final 10/17/11- 805 ML C. trach/N. gonorr Amplified RNA SOURCE: ENDOCERVIX C. TRACHOMATIS AMPLIFIED RNA: NEGATIVE SOURCE: ENDOCERVIX N. GONORRHOEAE AMPLIFIED RNA: NEGATIVE Reference Value: Negative Test performed by: [facility] [employer] [facility] [employer] [place], [place] [address] - [facility] Permit #[id number] [facility] [employer] [place] [address] DEPARTMENT OF PATHOLOGY, [facility] [employer] [place], [place] [address] [facility] Permit #[id number] Kaushik Mejias M.D. Director Mable Bray M.D. [employer] Procedures Date Code Description Status 05/11/2018 92505 Insert Intrauterine Device Completed 03/17/2018 74919 Delivery Of Placenta Completed 03/10/2018 16366 Antepartum Care 7 Or More Visits Completed 03/02/2018 91268 Non-Stress Test Completed 02/28/2018 16756 Non-Stress Test Completed 02/16/2018 72625 Biophysical Profile Without Non Stress Test Completed 02/16/2018 63694 Echography Uterus Follow-Up Or Repeat Completed 02/14/2018 22490 Non-Stress Test Completed 01/26/2018 97460 Non-Stress Test Completed 12/29/2017 45642 Injection Intramuscular Or Subcutaneous Completed 11/05/2017 37266 Echography Uterus Complete Completed 09/03/2017 25913 OB Ultrasound First Trimester Completed 02/24/2016 73938 Echography Transvaginal Completed 12/17/2014 59779 Obstetric Care Routine Completed 11/12/2014 60979 Non-Stress Test Completed 10/14/2014 47149 Non-Stress Test Completed 10/13/2014 56551 Non-Stress Test Completed 09/05/2014 06841 Echography Uterus Follow-Up Or Repeat Completed 08/07/2014 09585 Echography Uterus Complete Completed 08/07/2014 92644 Echography Uterus Complete Completed 05/22/2014 98826 OB Ultrasound First Trimester Completed 01/11/2014 49051 Echography Transvaginal Completed 01/08/2014 94366 Echography Transvaginal Completed 04/24/2012 66099 Obstetric Care Routine Completed 04/24/2012 15927 Obstetric Care Routine Completed 04/24/2012 42407 Non-Stress Test Completed 01/19/2012 59993 Echography Uterus Follow-Up Or Repeat Completed 12/22/2011 17238 Echography Uterus Complete Completed 10/15/2011 62516 Nuchal Translucency Ultrasound /First Gestation Completed Encounters Type Date Location Provider Dx Diagnosis Office Visit 03/19/2018 Delivery Saldelfincherrie Sharma, Z39.2 Encounter for routine 2:23p CNM follow-up Office Visit 03/18/2018 Delivery Mikaela Valentin Z39.2 Encounter for routine 2:22p CARMEN Avendano follow-up Office Visit 03/02/2018 Delivery Reina Sharma, O47.1 False labor at or 10:17a CNM after 37 completed weeks of gestation Office Visit 02/28/2018 Delivery Reina Sharma, O47.03 False labor before 37 8:46a CNM completed weeks of gest, third tri Office Visit 02/14/2018 Delivery Shannon Thompson CNM O47.03 False labor before 37 8:16a completed weeks of gest, third tri Office Visit 03/26/2016 [facility] Jennifer Floyd MD N93.9 Abnormal uterine and 3:00p vaginal bleeding, unspecified Office Visit 02/24/2016 [facility] Jennifer Floyd MD N93.9 Abnormal uterine and 3:30p vaginal bleeding, unspecified Office Visit 02/10/2016 [facility] Tiffany Rivera ANP-C N92.6 Irregular 10:20a menstruation, unspecified Z13.0 Encntr screen for dis of the bld/bld-form org/immun [facility] Office Visit 03/15/2015 9:30a [facility] Jennifer Floyd N92.0 Excessive and MD frequent menstruation with regular cycle Z13.0 Encntr screen for dis of the bld/bld-form org/immun [facility] Office Visit 02/11/2015 2:20p [facility] Tiffany Rivera, F32.0 Major depressive ANP-C disorder, single episode, mild O99.03 Anemia complicating the puerperium Office Visit 01/22/2015 1:40p [facility] Tiffany Rivera Z39.2 Encounter for ANP-C routine follow-up Office Visit 10/14/2014 3:52p Delivery Pollo Rajput 789.00 Pain Abdominal M.D. Unspec Site 765.25 Gestation, 29-30 Completed Weeks Of 787.01 Nausea W/ Vomiting Office Visit 10/13/2014 3:49p Delivery Pollo Rajput 789.00 Pain Abdominal M.DShelly Unspec Site 765.25 Gestation, 29-30 Completed Weeks Of 787.01 Nausea W/ Vomiting Office Visit 01/16/2014 1:20p [facility] Tiffany Rivera 634.90 Spontaneous ANP-C W/O Complication Unspec Office Visit 01/11/2014 11:20a [facility] Sahil Frey 640.80 Hemorrhage Purvi Khan Early Spec Episode Care Unspec Or N/A Office Visit 01/08/2014 3:40p [facility] Sahil Frey 634.90 Spontaneous Purvi Khan W/O Complication Unspec Office Visit 04/19/2012 4:26p Delivery Heraclio Andres, 788.1 Dysuria CN V22.1 Supervison Of Normal Other Plan of Treatment Future Appointment(s):06/08/2018 9:30 am - Jennifer Floyd MD at [facility]EN[facility] Thao-CF32.0 Major depressive disorder, single episode, mildNew Medication:Zoloft 50 mg - 1 by mouth every dayComments:call 911 if any thought off harm to self or baby.discussed potential weight gain , decreased abilityfor orgasm and increased thoughts and action for suicide first few weeks on SSRI.Follow up:r/v 4-6 weeks for consult on depression . will need to recheck HGB. please give not stating pt had appointment today.O99.03 Anemia complicating the puerperium
[2018-05-28 07:52] VITALS: BP 122/77
--- NOTE | 2018-05-28 07:55 | UC ---
Dental HPI - HPI Summary HPI Summary: Patient Chief Complaint: tootheache, left upper molars # 14, 15; also, left lower gingiva tender; # [address]; #16 has been removed. Course (aggravating, relieving, current condition, severity): comes and goes; worse in the last 24 hours; points to upper and lower left molars. Pain: 12/06 Has been breast feeding. Took one Vicodin. Substituted formula when took vicodin. MD note, vital signs: stable; afebrile. Nurses Note: Pt with a "few teeth" on the left side of her jaw that have needed to be pulled, and have had infections. She had been treated, but states the pain is coming back, from her neck to her head. pt has been trying to get in to see an oral surgeon. - History of Current Complaint Chief Complaint: UCDentalProblem Stated Complaint: DENTAL PAIN Time Seen by Provider: 05/28/18 07:53 Hx Last Menstrual Period: 05/24/18 Pain Intensity: 9 - Allergies/Home Medications Allergies/Adverse Reactions: Allergies Allergy/AdvReac Type Severity Reaction Status Date / Time No Known Allergies Allergy Verified 05/28/18 07:52 Home Medications: Home Medications Hydrocodone/Acetaminophen [Vicodin 5-300 mg Tablet] 1 tab PO DAILY PRN 05/28/18 [History Confirmed 05/28/18] PMH/Surg Hx/FS Hx/Imm Hx - Additional Past Medical History Additional PMH: Review of contributory previous complaints & visits: recent vaginal delivery; breast feeding. Review of contributory chronic conditions: tooth decay. Review of contributory medications and Allergies: none. Family History: Positive history of: -asthma -Denies hypertension, heart disease, stroke, diabetes, cancer. 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 Family Environment: with and three other children. Habits: denies smoking. Previously Healthy: Yes - Surgical History Surgical History: Yes Surgery Procedure, Year, and Place: Cholecystectomy 05/2012 - Family History Known Family History: Positive: Other - anemia Negative: Cardiac Disease, Hypertension, Diabetes - Social History Alcohol Use: Occasionally Substance Use Type: None Substance Use Comment - Amount & Last Used: not recently Smoking Status (MU): Never Smoked Tobacco Type: Cigarettes Amount Used/How Often: 1/2 PPD Have You Smoked in the Last Year: No Household Exposure Type: Cigarettes - Immunization History Most Recent Influenza Vaccination: 01/26/18 Most Recent Tetanus Shot: up to date Most Recent Pneumonia Vaccination: None Vaccination Up to Date: Yes Review of Systems All Other Systems Reviewed And Are Negative: Yes Constitutional: Positive: Negative Skin: Positive: Negative Eyes: Positive: Negative ENT: Positive: Dental Pain - 9/10 left upper and lower jaw; no neck pain Respiratory: Positive: Negative Cardiovascular: Positive: Negative Gastrointestinal: Positive: Negative Genitourinary: Positive: Negative Is Patient Immunocompromised?: No Physical Exam - Summary Physical Exam Summary: Appearance: The patient is well-appearing, is in no pain or distress, and is well-nourished. Eyes: Conjunctiva are clear. Pupils are equal and reactive to light and accommodation. Extra ocular muscle movement is intact. ENT: The hearing is grossly normal, the pharynx is normal, and the TMs are normal. There is no muffled or hoarse voice. No stridor. Dental: missing # 20, 19, 18; [address]; above #14, 15, 16 painful. Examination for aleks apical abscess reveals slight tenderness above the gum line but no point swelling or tenderness c/w abscess. Gingiva mildly inflammed. Neck: The neck is supple and there is no lymphadenopathy. Respiratory: The chest is nontender to palpation and without crepitus. The lungs are clear, there are normal breath sounds, and there is no respiratory distress. No wheezes, rales or rhonchi. Cardiovascular: Heart sounds reveal a regular rate and rhythm. There are no clicks, rubs or murmurs. There are no carotid bruits or thrills. Circulation is grossly intact. Abdomen: The abdomen is soft and nontender. There is no organomegaly. Bowel sounds are present and within normal limits. No point tenderness at McBurneys point. Musculoskeletal: Strength is intact. The patient moves all extremities. Neurological: The patient is alert. Motor and sensory are examination grossly intact. Speech is normal. Psychological: The patient displays age appropriate behavior Skin: Negative for rashes. Triage Information Reviewed: Yes Vital Signs: Initial Vital Signs Temp 97.5 F 05/28/18 07:47 Pulse 87 05/28/18 07:47 Resp 18 05/28/18 07:47 BP 122/77 05/28/18 07:47 Pulse Ox 98 05/28/18 07:47 Vital Signs Reviewed: Yes Dental Complaint Course/Dx - Course Course Of Treatment: 22-year-old female who is breast-feeding has had waxing and waning dental discomfort in the area of the left upper and lower jaw over the past month. This is a chronic intermittent condition. She has had a number of teeth removed including numbers 20, 19 and 18. There is mild diffuse tenderness in the areas of tooth #13, #14, #15. There is no obvious periapical abscess in the vicinity of any of these teeth. There is no cervical adenopathy. The patient is afebrile. His may be the beginning of a early abscess or discomfort secondary to tooth decay. There is no obvious pericoronitis. Tooth #17. I will start the patient on amoxicillin for 10 days and she will follow-up with an oral surgeon. She knows not to take analgesic medication and breast-feed. Discussed the plan to use acetaminophen and ibuprofen instead of Vicodin and cautioned her about using acetaminophen and Vicodin same time. The patient's vital signs were stable when she left the [facility] and she did not appear in any distress. MEDICATIONS REVIEWED: Medications have been included in the original chart and reviewed. HYPERTENSION REVIEWED: HTN URGENT/EMERGENT: Patient is Urgent/Emergent. BP elevated due to current condition w/o HTN in PMH. - Differential Dx/Diagnosis Differential Diagnosis/Dx: Dental Abscess, Dental Caries, Gingivitis Provider Diagnosis: Infected dental carries Discharge - Sign-Out/Discharge Documenting (check all that apply): Patient Departure All imaging exams completed and their final reports reviewed: No Studies - Discharge Plan Condition: Stable Disposition: HOME Prescriptions: Amoxicillin PO (*) [Amoxicillin 875 MG (*)] 875 mg PO BID #20 tab MDD 2 Patient Education Materials: Dental Abscess (ED), Toothache (ED) Referrals: Ras Abreu MD [Primary Care Provider] - Additional Instructions: WE DISCUSSED: PLEASE SEEK CARE AT THE EMERGENCY DEPARTMENT IF SYMPTOMS WORSEN OR IF NEW SYMPTOMS DEVELOP. FOLLOW UP WITH YOUR PRIMARY CARE PHYSICIAN IF CONDITION CONTINUES BEYOND 3 DAYS WITHOUT IMPROVEMENT. We are open from 7 a.m. to 10 p.m. Call us with any questions or concerns. YOUR DIAGNOSIS IS: TOOTH PAIN; POSSIBLE EARLY TOOTH ABSCESS. YOUR PRESCRIPTION RECOMMENDATION IS: AMOXICILLIN FOR 10 DAYS OTHER INSTRUCTIONS: WARM MOIST HEAT MAY HELP; GARGLE; DON'T TAKE HYDROCODONE AND BREAST FEED; SEE OTHER PAIN PILLS BELOW. See oral surgeon as planned. For pain: Ibuprofen (Motrin and other brand names) 400-600mg PLUS acetaminophen (Tylenol and other brand names) 500mg - 1000mg every 8 hours. Maximum is 3 doses a day. If this dosage is required for more than 5 days, you should re-check with your doctor. The combination of these two over-the- counter medications can be more effective than each one taken alone. Please check with the pharmacist if you have questions about your allergies to these medications. DON'T TAKE HYDROCODONE AND ACETAMINOPHEN AT THE SAME TIME. To help you sleep: If you feel as if you want to calm down and get sleepy, over the counter diphenhydramine (Benadryl and other brand names), 25 mg up to every 8 hours may be useful. Please check with the pharmacist if you have questions about your allergies to these medications. Please check with the pharmacist if you have questions about your allergies to these medications. - Billing Disposition and Condition Condition: STABLE Disposition: Home
== END 2018-05-28 08:20 | disposition home or self-care (01) ==
LOC: UCEAST 07:41
DX: K02.9 Dental caries, unspecified (principal)
CPT/HCPCS: 99212; G0463

== ENCOUNTER 2018-10-07 05:58 | Day surgery (SDC) | payer OTHER ==
[~2018-10-07 05:58] MED LIST: Buffered Lidocaine 1% SYRIN* 1 ML/SYRINGE INTRADERM ONE
[2018-10-07] MEDS ORDERED: Lactated Ringers 1000 ML Bag* 1,000 ML IV SCH (06:00)
[2018-10-07] MEDS ORDERED: Famotidine IV* 10 MG/ML 2 ML (20 mg) IV ONE (06:00)
[2018-10-07] MEDS ORDERED: Dexamethasone IV* 4 MG/ML 1 ML (4 MG) IV SLOW PU ONE (06:00)
[2018-10-07] MEDS ORDERED: Dexamethasone IV* 4 MG/ML 1 ML (4 MG) ONE (06:27)
[2018-10-07] MEDS ORDERED: Famotidine IV* 10 MG/ML 2 ML (20 mg) ONE (06:27)
[2018-10-07] MEDS ORDERED: Midazolam* 1 MG/ML 2 ML VIAL (2 MG) ONE (07:00)
[2018-10-07] MEDS ORDERED: fentaNYL* 50 MCG/ML 2 ML VIAL (100 MCG VIAL) ONE ×3 (07:00→08:59)
[2018-10-07] MEDS ORDERED: Bupivacaine 0.25% SDV PF* 10 ML VIAL INJ ONE (07:19)
[2018-10-07] MEDS ORDERED: Rocuronium* 10 MG/ML VIAL ONE (07:21)
[2018-10-07] MEDS ORDERED: Lidocaine 2% PF * 5 ML VIAL ONE ×2 (07:21→07:59)
[2018-10-07] MEDS ORDERED: Neostigmine Methylsulfate* 3 MG/3 ML SYRINGE ONE (07:21)
[2018-10-07] MEDS ORDERED: Propofol* 10 MG/ML 20 ML BTL ONE (07:21)
[2018-10-07] MEDS ORDERED: Ketorolac INJ* 30 MG/ML 1 ML VIAL ONE (07:59)
[2018-10-07] MEDS ORDERED: Ondansetron INJ* 2 MG/ML VIAL ONE (07:59)
[2018-10-07] MEDS ORDERED: Glycopyrrolate IV* 0.2 MG/ML 1 ML VIAL ONE (08:02)
[2018-10-07] MEDS ORDERED: fentaNYL* 50 MCG/ML 2 ML VIAL (100 MCG VIAL) IV PRN (08:39)
[2018-10-07] MEDS ORDERED: Naloxone* 0.4 MG/ML 1 ML VIAL IV PRN (08:39)
[2018-10-07] MEDS ORDERED: DiMENhydriNATE IV* 50 MG/ML VIAL IV PUSH PRN (08:39)
[2018-10-07 10:08] VITALS: BP 110/68
--- NOTE | 2018-10-07 10:14 | OP ---
DATE OF OPERATION: 10/07/18 - SDS DATE OF : 89 SURGEON: Dr. Khan. ASTRO TECHNICIAN: None. ANESTHESIA: General endotracheal tube. PRE-OP DIAGNOSIS: Desires sterilization. POST-OP DIAGNOSIS: Desires sterilization. OPERATIVE PROCEDURE: Laparoscopic tubal ligation and removal of IUD. ESTIMATED BLOOD LOSS: Minimal. SPECIMEN: None. FINDINGS: Normal tube, uterus, and ovaries. DESCRIPTION OF PROCEDURE: The patient was identified, procedure identified as a laparoscopic tubal ligation. The patient was taken to the operating room, prepped and draped in the usual fashion in the dorsal lithotomy position under general anesthesia. A weighted speculum was placed in the vagina with a Charlton. The IUD string was grasped and removed. The patient was catheterized. A small infraumbilical incision was made and a Veress needle was inserted through this. The abdomen was insufflated to 15 mmHg. The Veress needle was removed and the trocar was inserted. Trocar was removed and the sheath and laparoscope were inserted. The above findings were noted. A second incision was made 2 cm above the pubic symphysis in the midline and the second trocar was inserted under direct visualization. The bipolar cautery was inserted on setting of 20 bipolar. The fallopian tube on the right was grasped in its midportion, followed to its fimbriated ends, and fulgurated x3. Same procedure was carried out on the left after following it out to its fimbriated ends. All instruments removed from the abdomen. The abdomen was deflated of CO2. The skin was closed with DermaPlast, and the sponge and sponge stick were removed from the vagina. All sponge and instruments counts were correct. The patient returned to recovery room in stable condition. [id number]/[facility] [place] #: [id number] [facility]
== END 2018-10-07 10:00 | disposition home or self-care (01) ==
LOC: OR 05:58
PROVIDERS: ATTEND Obstetrics & Gynecology
DX: Z30.2 Encounter for sterilization (principal); Z68.37 Body mass index [BMI] 37.0-37.9, adult; J45.990 Exercise induced bronchospasm; Z87.440 Personal history of urinary (tract) infections
CPT/HCPCS: 81025; J1100; J1885; J2250; J2405; J2704; J2710; J3010; J3490

== ENCOUNTER 2019-04-08 13:44 | Emergency (ER) | payer OTHER ==
[2019-04-08 14:05] VITALS: BP 115/75
--- NOTE | 2019-04-08 14:26 | ED ---
GI/ HPI - HPI Summary HPI Summary: Pt. is a 23 y.o female who presents to the ER for vaginal bleeding. Pt. states she had a tubal ligation 7 months ago and has not had a menstrual cycle until now. Pt. had IUD prior to ligation. Pt. states bleeding started last night. Pt. states she has been changing a fully saturated super tampon every 30 minutes. She notes pelvic cramping as well. Pt. notes dizziness without syncope, chest pain or SOB. Sxs are moderate in severity. Pt. notes hx of anemia. No current modifying factors. - History of Current Complaint Chief Complaint: EDVaginalBleeding Time Seen by Provider: 04/08/19 14:25 Stated Complaint: GENERAL ILLNESS Hx Obtained From: Patient Hx Last Menstrual Period: 05/24/18 Pain Intensity: 5 - Allergy/Home Medications Allergies/Adverse Reactions: Allergies Allergy/AdvReac Type Severity Reaction Status Date / Time No Known Allergies Allergy Verified 04/08/19 14:05 Home Medications: Home Medications Iron 27 mg PO DAILY 04/08/19 [History Confirmed 04/08/19] buPROPion HCl [Bupropion HCl Xl] 150 mg PO BEDTIME 04/08/19 [History Confirmed 04/08/19] PMH/Surg Hx/FS Hx/Imm Hx Previously Healthy: Yes Endocrine/Hematology History: Reports: Hx Anemia - ON IRON 04/24/12 DELIVERED BABY Denies: Hx Diabetes, Hx Thyroid Disease Cardiovascular History: Denies: Hx Hypertension, Hx Pacemaker/ICD Respiratory History: Reports: Hx Asthma - Exercise Induced Denies: Hx Chronic Obstructive Pulmonary Disease (COPD) GI History: Reports: Hx Gastroesophageal Reflux Disease - OK SINCE PREVACID Denies: Hx Ulcer History: Reports: Other Problems/Disorders - recurrent uti's Denies: Hx Kidney Infection Sensory History: Denies: Hx Contacts or Glasses, Hx Hearing Aid Opthamlomology History: Denies: Hx Contacts or Glasses Psychiatric History: Reports: Hx Depression - POST Denies: Hx Eating Disorder, Hx Panic Disorder, Hx of Violent Episodes Against Others, Other Psychiatric Issues/Disorders - Surgical History Surgery Procedure, Year, and Place: Cholecystectomy 05/2012 Hx Anesthesia Reactions: No - Immunization History Date of Tetanus Vaccine: 2012 Infectious Disease History: No Infectious Disease History: Denies: Hx Clostridium Difficile, Hx Hepatitis, Hx Human Immunodeficiency Virus (HIV), Hx of Known/Suspected MRSA, Hx Tuberculosis, Hx Known/Suspected VRE , Hx Known/Suspected VRSA, History Other Infectious Disease, Traveled Outside the [place] in Last 30 Days - Family History Known Family History: Positive: Other - anemia Negative: Cardiac Disease, Hypertension, Diabetes - Social History Occupation: Unemployed Lives: With Family Alcohol Use: Occasionally Hx Substance Use: No Substance Use Type: Reports: None Substance Use Comment - Amount & Last Used: not recently Hx Tobacco Use: Yes Smoking Status (MU): Never Smoked Tobacco Type: Cigarettes Amount Used/How Often: 1/2 PPD Have You Smoked in the Last Year: No Review of Systems Cardiovascular: Negative Negative: Palpitations, Chest Pain Respiratory: Negative Negative: Shortness Of Breath Positive: Other - pelvic cramping. Genitourinary: Other - vaginal bleeding Neurological: Negative All Other Systems Reviewed And Are Negative: Yes Physical Exam Triage Information Reviewed: Yes Vital Signs On Initial Exam: Initial Vitals Temp Pulse Resp BP Pulse Ox 97.3 F 78 16 115/75 99 04/08/19 14:03 04/08/19 14:03 04/08/19 14:03 04/08/19 14:03 04/08/19 14:03 Vital Signs Reviewed: Yes Appearance: Positive: Well-Appearing - Pt. sitting up in bed in NAD. Skin: Positive: Warm, Dry Head/Face: Positive: Normal Head/Face Inspection Neck: Positive: Supple Respiratory/Lung Sounds: Positive: Clear to Auscultation, Breath Sounds Present Cardiovascular: Positive: Normal, RRR Abdomen Description: Positive: Other: - Obese. Abd. is soft and nontender throughout. Pelvic Exam: Positive: Other - Pelvic exam performed with pt.'s nurseSanta. Vaginal canal filled with bright red blood. Mild active bleeding. Neurological: Positive: Normal, CN Intact II-III Psychiatric: Positive: Affect/Mood Appropriate Procedures - Sedation Patient Received Moderate/Deep Sedation with Procedure: No Diagnostics - Vital Signs Vital Signs Temp Pulse Resp BP Pulse Ox 04/08/19 14:03 97.3 F 78 16 115/75 99 - Laboratory Result Diagrams: 04/08/19 14:46 Lab Statement: Any lab studies that have been ordered have been reviewed, and results considered in the medical decision making process. GIGU Course/Dx - Course Course Of Treatment: Patient presenting with vaginal bleeding. Vital signs are stable with normal blood pressure and heart rate. Hemoglobin stable at 11.7. Negative . Patient has mild to moderate bleeding on exam. We'll discharge patient home to follow-up with PRACTICAL NURSE CLINICAL COORDINATOR on Wednesday. Instructed 600-800 mg ibuprofen every 6 hours for the next several days. We'll return to the ER for increased bleeding, syncope, chest pain, shortness of breath or if concerned. Patient understands and agrees with plan. - Diagnoses Differential Diagnoses - Female: , Other - AUB Provider Diagnoses: Menorrhagia Discharge ED - Sign-Out/Discharge Documenting (check all that apply): Patient Departure - Discharge Plan Condition: Good Disposition: HOME Patient Education Materials: Dysfunctional Uterine Bleeding (ED) Referrals: Betty Zelaya MD [Medical Doctor] - Vinicio Delgado DO [Primary Care Provider] - Additional Instructions: Please call OBGYN on Wednesday to make an appointment with 2-3 days for recheck Take ibuprofen 800mg every 6-8 hours as directed for pain Return to ER if bleeding increased, chest pain, shortness of breath, syncope, or if concerned - Billing Disposition and Condition Condition: GOOD Disposition: Home
--- OUTSIDE RECORDS SUMMARY | 2019-04-08 14:26 | XMS REPORT | Continuity of Care Document ---
:1995 External Reference #:[id number] Author Name Mouna Avilez PA (transmitted by agent of provider Varun Leal) Address [address] [facility], [address] [place] [address] Care Team Providers Name Role Phone HCP given Care Team Information Manual Writer Unavailable Problems Active Problems Provider Date Adjustment disorder with mixed emotional features Mouna Avilez PA Onset: Mild intermittent asthma Mouna Avilez PA Onset: 09/28/2018 Anemia Mouna Avilez PA Onset: 09/28/2018 Obesity Mouna Avilez PA Onset: 02/14/2019 Social History Type Date Description Comments Sex Unknown Tobacco Use Reviewed: 09/28/18 Denies Cigarette Use Smoking Status Reviewed: 02/15/19 Denies Cigarette Use ETOH Use 09/28/2018 Occassional Alcohol Recreational Drug Use 09/28/2018 Denies Drug Use Tobacco Use Start: Unknown Non Smoker Exercise Type/Frequency 09/28/2018 Exercises regularly Sun Exposure Uses sunscreen Seat Belt/Car Seat Seat Belt Use - Yes Smoke Alarms Yes smoke alarm Allergies, Adverse Reactions, Alerts Description No Known Drug Allergies Medications Active Medications SIG Qnty Indications Ordering Provider Date Bupropion Hydrochloride 1 tab by mouth 30tabs F43.23 Varun Leal, ER (XL) every day M.D. 150mg Tablets ER 24HR Vitamin D daily Unknown 02/13/2019 2000Unit Tablets Ventolin HFA 2 puffs q4-6 18gm J45.20 Varun Leal, 09/28/2018 108(90Base) hours as needed M.D. mcg/Act Aerosol Iron 1 by mouth D64.9 Unknown 09/27/2018 325(65Fe) mg Tablets daily History Medications Sertraline HCL 1 tablet by 30tabs F43.23 Varun Leal, 08/25/2018 - 50mg mouth daily M.D. 02/14/2019 Tablets Immunizations Description No Information Available Vital Signs Date Vital Result Comment 02/14/2019 4:47pm BP Systolic 122 mmHg BP Diastolic 80 mmHg Weight 270.50 lb 09/28/2018 3:24pm BP Systolic 110 mmHg BP Diastolic 64 mmHg Height 67.25 inches 5'7.25" Weight 260.00 lb BMI (Body Mass Index) 40.4 kg/m2 Results Test Acquired Date Facility Test Result H/L Range Note Iron & Iron Binding 10/25/2018 [facility] Iron 70 g/dL Normal 50- 212 Capacity [phone] Unsaturated Iron Binding < 402 g/dL Total Iron Binding Capacity 417 g/dL Normal 250-450 Transferrin 298 mg/dL Normal 203-362 % Iron Saturation 17 % Normal 15-55 Laboratory test 10/25/2018 [facility] Vitamin B12 752 pg/mL Normal 180-914 1 finding [phone] Folic Acid (Folate) 7.87 ng/mL >3.99 CBC Auto Diff 10/25/2018 [facility] White Blood 7.4 10^3/uL Normal 3.5-10.8 [phone] Count Red Blood Count 5.30 10^6/uL High 3.70-4.87 Hemoglobin 12.8 g/dL Normal 12.0-16.0 Hematocrit 39 % Normal 35-47 Mean Corpuscular Volume 74 fL Low 80-97 2 Mean Corpuscular Hemoglobin 24 pg Low 27-31 Mean Corpuscular HGB Conc 33 g/dL Normal 31-36 Red Cell Distribution Width 17 % High 10-15 Platelet Count 223 10^3/uL Normal 150-450 Mean Platelet Volume 8.3 fL Normal 7.4-10.4 Abs Neutrophils 5.2 10^3/uL Normal 1.5-7.7 Abs Lymphocytes 1.6 10^3/uL Normal 1.0-4.8 Abs Monocytes 0.4 10^3/uL Normal 0-0.8 Abs Eosinophils 0.2 10^3/uL Normal 0-0.6 Abs Basophils 0.0 10^3/uL Normal 0-0.2 Abs Nucleated RBC 0.0 10^3/uL Granulocyte % 70.9 % Lymphocyte % 22.0 % Monocyte % 4.8 % Eosinophil % 2.0 % Basophil % 0.3 % Nucleated Red Blood Cells % 0.0 Comp Metabolic Panel 10/25/2018 [facility] Sodium 138 mmol/L Normal 135-145 [phone] Potassium 4.5 mmol/L Normal 3.5-5.0 Chloride 106 mmol/L Normal 101-111 Co2 Carbon Dioxide 25 mmol/L Normal 22-32 Anion Gap 7 mmol/L Normal 2-11 Glucose 90 mg/dL Normal 70-100 Blood Urea Nitrogen 14 mg/dL Normal 6-24 Creatinine 0.67 mg/dL Normal 0.51-0.95 BUN/Creatinine Ratio 20.9 High 8-20 Calcium 9.3 mg/dL Normal 8.6-10.3 Total Protein 7.3 g/dL Normal 6.4-8.9 Albumin 4.2 g/dL Normal 3.2-5.2 Globulin 3.1 g/dL Normal 2-4 Albumin/Globulin Ratio 1.4 Normal 1-3 Total Bilirubin 0.50 mg/dL Normal 0.2-1.0 Alkaline Phosphatase 93 U/L Normal 34-104 Alt 16 U/L Normal 7-52 Ast 13 U/L Normal 13-39 Egfr Non- 110.1 >60 Egfr 133.2 >60 3 Laboratory test 10/25/2018 [facility] TSH (Thyroid 1.50 mcIU/mL Normal 0.34-5.60 finding [phone] Stim Horm) Hemoglobin A1c (Glyco HGB) 5.7 % High 4.0-5.6 4 Vitamin D Total 25(Oh) 20.4 ng/mL Normal 20-50 5 Cortisol 6.08 g/dL 6 Lipid Profile (Trig/Chol/HDL) 10/25/2018 [facility] Triglycerides 107 mg/dL 7 [phone] Cholesterol 144 mg/dL 8 HDL Cholesterol 48.2 mg/dL 9 LDL Cholesterol 74 mg/dL 10 1 Normal Range 180 to 914 Indeterminate Range 145 to 180 Deficient Range <145 2 Consistent with Previous Results Reported on 03/18/18 3 Because ethnic data is not always readily [...] 15-29 5 Kidney failure <15 (or dialysis) 4 Therapeutic target for the treatment of diabetes mellitus patients is <7% HBA1C, and in selective patients <6.0%. Please refer to [place] [employer] diabetic care guidelines for further information. 5 Total 25-Hydroxyvitamin D2 and D3 (25-OH-VitD) <10 ng/mL (severe deficiency) 10-19 ng/mL (mild to moderate deficiency) 20-50 ng/mL (optimum levels) 51-80 ng/mL (increased risk of hypercalciuria) >80 ng/mL (toxicity possible) 6 AM 8.7-22.4 PM <10 7 Desirable: <150 Borderline High: 150-199 High: 200-499 Very High: >500 8 Desirable: <200 Borderline High: 200-239 High: >239 9 Low: <40 Desirable: 40-60 High: >60 10 Desirable: <100 Near Optimal: 100-129 Borderline High: 130-159 High: 160-189 Very High: >189 Procedures Description No Information Available Medical Devices Description No Information Available Encounters Type Date Location Provider Dx Diagnosis Office Visit 02/14/2019 Main Office Mouna Avilez PA F43.23 Adjustment disorder 4:50p with mixed anxiety and depressed mood E66.9 Obesity, unspecified R63.5 Abnormal weight gain Z68.41 Body mass index (BMI) 40.0-44.9, adult Office Visit 09/28/2018 3:20p Main Office Mouna Avilez F43.23 Adjustment disorder PITER with mixed anxiety and depressed mood J45.20 Mild intermittent asthma, uncomplicated R53.83 Other fatigue R63.5 Abnormal weight gain D64.9 Anemia, unspecified Z68.41 Body mass index (BMI) 40.0-44.9, adult Assessments Date Code Description Provider 02/14/2019 F43.23 Adjustment disorder with mixed anxiety and Mouna Avilez PA depressed mood 02/14/2019 E66.9 Obesity, unspecified Mouna Avilez PA 02/14/2019 R63.5 Abnormal weight gain Mouna Avilez PA 02/14/2019 Z68.41 Body mass index (BMI) 40.0-44.9, adult Mouna Avilez PA 09/28/2018 F43.23 Adjustment disorder with mixed anxiety and Mouna Avilez PA depressed mood 09/28/2018 J45.20 Mild intermittent asthma, uncomplicated Mouna Avilez PA 09/28/2018 R53.83 Other fatigue Mouna Avilez PA 09/28/2018 R63.5 Abnormal weight gain Mouna Avilez PA 09/28/2018 D64.9 Anemia, unspecified Mouna Avilez PA 09/28/2018 Z68.41 Body mass index (BMI) 40.0-44.9, adult Mouna Avilez PA Plan of Treatment 09/28/2018 - Mouna Avilez, PAF43.23 Adjustment disorder with mixed anxiety and depressed moodComments:Doing well on sertraline. Continue same and monitor.J45.20 Mild intermittent asthma, uncomplicatedNew Medication:Ventolin HFA 108(90 Base) mcg/Act - 2 puffs q4-6 hours as neededComments:Rx for rescue inhaler.R53.83 Other fatigueComments:Labs as below.R63.5 Abnormal weight gainComments:Check labs. Pt to keep working on diet and exercise.D64.9 Anemia, unspecifiedComments:Continue on iron. Labs as above.Z68.41 Body mass index (BMI ) 40.0-44.9, adult Functional Status Description No Information Available Mental Status Description No Information Available Referrals Refer to Reason for Referral Status Appt Date [facility] Healthy Living Nutrition and weight loss Consult Sent [facility] [address] [place] [address] [phone]
[2019-04-08] MEDS ORDERED: Naproxen TAB* 250 MG PO ONE (14:36)
[2019-04-08 15:00] LABS: ABS Basophils 0.1 10^3/ul (0-0.2); ABS Eosinophils 0.1 10^3/ul (0-0.6); ABS Lymphocytes 1.6 10^3/ul (1.0-4.8); ABS Monocytes 0.5 10^3/ul (0-0.8); ABS Neutrophils 6.2 10^3/ul (1.5-7.7); Eosinophil % 1.2 %; Hematocrit 35 % (35-47); Hemoglobin 11.7 g/dL (12.0-16.0); Lymphocyte % 18.5 %; Mean Corpuscular HGB Conc 33 g/dL (31-36); Mean Corpuscular Hemoglobin 25 pg (27-31); Mean Corpuscular Volume 77 fL (80-97); Mean Platelet Volume 8.1 fL (7.4-10.4); Nucleated Red Blood Cells % 0.1; Platelet Count 228 10^3/uL (150-450); Red Cell Distribution Width 15 % (10-15); White Blood Count 8.4 10^3/uL (3.5-10.8)
== END 2019-04-08 15:49 | disposition home or self-care (01) ==
LOC: ED 13:44
DX: N92.0 Excessive and frequent menstruation with regular cycle (principal); Z98.51 Tubal ligation status; D64.9 Anemia, unspecified; J45.909 Unspecified asthma, uncomplicated; K21.9 Gastro-esophageal reflux disease without esophagitis; Z90.49 Acquired absence of other specified parts of digestive tract; Z79.899 Other long term (current) drug therapy
CPT/HCPCS: 36415; 84702; 85025; 99282; A9270-GY

== ENCOUNTER 2019-05-04 12:33 | Emergency (ER) | payer OTHER ==
--- OUTSIDE RECORDS SUMMARY | 2019-05-04 12:39 | XMS REPORT | Continuity of Care Document ---
:1995 External Reference #:[id number] Author Name Berkley Cooley MD Address [address] [place] [address] Care Team Providers Name Role Phone Vinicio Delgado MD Care Team Information Body Shop Technician [phone] Problems Active Problems Provider Date Multigravida Heraclio Andres CNM Onset: 09/15/2017 Shoulder dystocia - delivered Heraclio Andres CNM Onset: 02/02/2018 Social History Type Date Description Comments Sex Unknown Tobacco Use Start: Unknown Never Smoked Cigarettes Smoking Status Reviewed: 04/20/19 Never Smoked Cigarettes ETOH Use Occasionally consumes beer Tobacco Use Start: Unknown Patient has never smoked Recreational Drug Use Denies Drug Use Exercise Type/Frequency Exercises regularly Seat Belt/Car Seat Always uses seat belt Allergies, Adverse Reactions, Alerts Description No Known Drug Allergies Medications Active Medications SIG Qnty Indications Ordering Provider Date Ibuprofen take one tab by 30tabs Z01.818 Sahil Khan, 09/30/2018 600mg Tablets mouth every 6 M.D. hours as needed pain Iron Unknown 28mg Tablets Wellbutrin Unknown Medications Administered in Office Medication SIG Qnty Indications Ordering Provider Date PT SCRN Tbco Id as Non User Berkley Cooley MD 04/20/2019 Injection PT SCRN Tbco Id as Non User Sahil Khan M.D. 09/30/2018 Injection PT SCRN Tbco Id as Non User Jennifer Floyd MD 07/26/2018 Injection Immunizations CPT Code Status Date Vaccine Lot # [id number] Given 01/26/2018 Influenza Vaccine Quadrivalent Preser/Antibiotic [id number] Free [place] Use [id number] Given 12/29/2017 Tetnus, Diptheria Toxoids And Acellular Pertussis, [id number] PT > 7Yrs Old [id number] Given 09/26/2014 Tetnus, Diptheria Toxoids And Acellular Pertussis, [id number] PT > 7Yrs Old Vital Signs Date Vital Result Comment 04/20/2019 10:52am Height 67 inches 5'7" Weight 242.00 lb BMI (Body Mass Index) 37.9 kg/m2 Last Menstrual Period [id number] Parity 3 09/30/2018 1:44pm BP Systolic 112 mmHg BP Diastolic 72 mmHg Body Temperature 98.6 F Heart Rate 66 /min Respiratory Rate 16 /min Height 67 inches 5'7" Weight 260.00 lb BMI (Body Mass Index) 40.7 kg/m2 5 Parity 3 Results Description No Information Available Procedures Description No Information Available Medical Devices Description No Information Available Encounters Type Date Location Provider Dx Diagnosis Office Visit 04/20/2019 [facility] Berkley Cooley, N92.5 Other specified 10:45a irregular menstruation E66.8 Other obesity Assessments Date Code Description Provider 04/20/2019 N92.5 Other specified irregular menstruation Berkley Cooley MD 04/20/2019 E66.8 Other obesity Berkley Cooley MD Plan of Treatment 04/20/2019 - Berkley Cooley MDN92.5 Other specified irregular menstruationComments:This may just be a return to menses s/p IUD removal. Will check TFTs just in case due to her other sxms. Will f/u in 2-3mo and do sono if she continues to have irregular bleeding.E66.8 Other obesityComments:Try to establish a regular exercise routine. Ideally you should exercise for 30min at least 3-4x week. Try to limit portion size and decrease intake of carbs and sugars, especially sugary drinks! Functional Status Description No Information Available Mental Status Description No Information Available Referrals Description No Information Available
--- OUTSIDE RECORDS SUMMARY | 2019-05-04 12:39 | XMS REPORT | Continuity of Care Document ---
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 Problems Active Problems Provider Date Adjustment disorder with mixed emotional Mouna Avilez PA Onset: 09/28/2018 features Mild intermittent asthma Mouna Avilez PA Onset: 09/28/2018 Anemia Mouna Avilez PA Onset: 09/28/2018 Obesity Mouna Avilez PA Onset: 02/14/2019 Iron deficiency anemia Cecy Chavez MD Onset: 04/14/2019 Migraine with typical aura Cecy Chavez MD Onset: 04/14/2019 Social History Type Date Description Comments Sex [...] Medications SIG Qnty Indications Ordering Provider Date Sumatriptan Succinate 1 tab by mouth 9tabs G43.109 Cecy Chavez, 2019 50mg daily as needed Tablets for migraine, may repeat after two hours if needed Bupropion Hydrochloride 1 tab by mouth 30tabs F43.23 Varun Leal, ER (XL) every day M.D. 150mg Tablets ER 24HR Vitamin D daily Unknown 02/13/2019 2000Unit Tablets Ventolin HFA 2 puffs q4-6 18gm J45.20 Varun Leal, 09/28/2018 108(90Base) hours as needed M.D. mcg/Act Aerosol Iron 1 by mouth D64.9 Unknown 09/27/2018 325(65Fe) mg Tablets daily Immunizations Description No Information Available Vital Signs Date Vital Result Comment 04/14/2019 3:25pm BP Systolic 108 mmHg BP Diastolic 76 mmHg Weight 263.00 lb 02/14/2019 4:47pm BP Systolic 122 mmHg BP Diastolic 80 mmHg Weight 270.50 lb Results Test Acquired Date Facility Test Result H/L Range Note CBC Auto 04/08/2019 [facility] White Blood 8.4 10^3/uL Normal 3.5- 10.8 Diff [phone] Count Red Blood Count 4.60 10^6/uL Normal 3.70-4.87 Hemoglobin 11.7 g/dL Low 12.0-16.0 Hematocrit 35 % Normal 35-47 Mean Corpuscular Volume 77 fL Low 80-97 Mean Corpuscular Hemoglobin 25 pg Low 27-31 Mean Corpuscular HGB Conc 33 g/dL Normal 31-36 Red Cell Distribution Width 15 % Normal 10-15 Platelet Count 228 10^3/uL Normal 150-450 Mean Platelet Volume 8.1 fL Normal 7.4-10.4 Abs Neutrophils 6.2 10^3/uL Normal 1.5-7.7 Abs Lymphocytes 1.6 10^3/uL Normal 1.0-4.8 Abs Monocytes 0.5 10^3/uL Normal 0-0.8 Abs Eosinophils 0.1 10^3/uL Normal 0-0.6 Abs Basophils 0.1 10^3/uL Normal 0-0.2 Abs Nucleated RBC 0.0 10^3/uL Granulocyte % 73.3 % Lymphocyte % 18.5 % Monocyte % 5.6 % Eosinophil % 1.2 % Basophil % 1.4 % Nucleated Red Blood Cells % 0.1 Laboratory test 04/08/2019 [facility] HCG < 0.60 mIU/mL 1 finding [phone] Iron & Iron 10/25/2018 [facility] Iron 70 g/dL Normal 50-212 Binding Capacity [phone] Unsaturated Iron Binding < 402 g/dL Total Iron Binding Capacity 417 g/dL Normal 250-450 Transferrin 298 mg/dL Normal 203-362 % Iron Saturation 17 % Normal 15-55 Laboratory test 10/25/2018 [facility] Vitamin B12 752 pg/mL Normal 180-914 2 finding [phone] Folic Acid (Folate) 7.87 ng/mL >3.99 CBC Auto Diff 10/25/2018 [facility] White Blood 7.4 10^3/uL Normal 3.5-10.8 [phone] Count Red Blood Count 5.30 10^6/uL High 3.70-4.87 Hemoglobin 12.8 g/dL Normal 12.0-16.0 Hematocrit 39 % Normal 35-47 Mean Corpuscular Volume 74 fL Low 80-97 3 Mean Corpuscular Hemoglobin 24 pg Low 27-31 [...] Cells % 0.0 Comp Metabolic Panel 10/25/2018 [facility] Sodium 138 mmol/L Normal 135-145 [phone] Potassium 4.5 mmol/L Normal 3.5-5.0 Chloride 106 [...] Egfr Non- 110.1 >60 Egfr 133.2 >60 4 Laboratory test 10/25/2018 [facility] TSH (Thyroid 1.50 mcIU/mL Normal 0.34-5.60 finding [phone] Stim Horm) Hemoglobin A1c (Glyco HGB) 5.7 % High 4.0-5.6 5 Vitamin D Total 25(Oh) 20.4 ng/mL Normal 20-50 6 Cortisol 6.08 g/dL 7 Lipid Profile (Trig/Chol/HDL) 10/25/2018 [facility] Triglycerides 107 mg/dL 8 [phone] Cholesterol 144 mg/dL 9 HDL Cholesterol 48.2 mg/dL 10 LDL Cholesterol 74 mg/dL 11 1 <5.0 Negative 5.0 - 25.0 Indeterminate (Repeat testing recommended after 72 hours) >25.0 Positive Perimenopausal women can display HCG levels of up to 20 mIU/mL 2 Normal Range 180 to 914 Indeterminate Range 145 to 180 Deficient Range <145 3 Consistent with Previous Results Reported on 03/18/18 4 Because ethnic data is not always readily [...] 15-29 5 Kidney failure <15 (or dialysis) 5 Therapeutic target for the treatment of diabetes mellitus patients is <7% HBA1C, and in selective patients <6.0%. Please refer to [place] [employer] diabetic care guidelines for further information. 6 Total 25-Hydroxyvitamin D2 and D3 (25-OH-VitD) <10 ng/mL (severe deficiency) 10-19 ng/mL (mild to moderate deficiency) 20-50 ng/mL (optimum levels) 51-80 ng/mL (increased risk of hypercalciuria) >80 ng/mL (toxicity possible) 7 AM 8.7-22.4 PM <10 8 Desirable: <150 Borderline High: 150-199 High: 200-499 Very High: >500 9 Desirable: <200 Borderline High: 200-239 High: >239 10 Low: <40 Desirable: 40-60 High: >60 11 Desirable: <100 Near Optimal: 100-129 Borderline High: 130-159 High: 160-189 Very High: >189 Procedures Description No Information Available Medical Devices Description No Information Available Encounters Type Date Location Provider Dx Diagnosis Office Visit 04/14/2019 Main Office Cecy Chavez, G43.109 Migraine with aura, 3:00p not intractable, w/o status migrainosus D50.9 Iron deficiency anemia, unspecified Office Visit 02/14/2019 4:50p Main Office Mouna Avilez, F43.23 Adjustment disorder PA with mixed anxiety and depressed mood E66.9 Obesity, unspecified R63.5 Abnormal weight gain Z68.41 Body mass index (BMI) 40.0-44.9, adult Assessments Date Code Description Provider 04/14/2019 G43.109 Migraine with aura, not intractable, without Cecy Chavez MD status migrainosus 04/14/2019 D50.9 Iron deficiency anemia, unspecified Cecy Chavez MD 02/14/2019 F43.23 Adjustment disorder with mixed anxiety and Mouna Avilez PA depressed mood 02/14/2019 E66.9 Obesity, unspecified Mouna Avilez PA 02/14/2019 R63.5 Abnormal weight gain Mouna Avilez PA 02/14/2019 Z68.41 Body mass index (BMI) 40.0-44.9, adult Mouna Avilez PA Plan of Treatment Future Appointment(s):05/08/2019 1:30 pm - Cecy Chavez MD at [id number] /05/2018 - Mouna Avilez, PAF43.23 Adjustment disorder with [...] to Reason for Referral Status Appt Date [facility] Healthy Living Nutrition and weight loss Consult Closed and [facility] [address] [place] [address] [phone]
--- NOTE | 2019-05-04 13:46 | UC ---
Complaint Female HPI - HPI Summary HPI Summary: Patient is a 23yo female A2 presenting with intermittent pelvic pain and intermittent vaginal bleeding x1 month. Patient states pelvic pain "feels like intense period cramps." She states the bleeding and cramping don't always correlate. Her last episode of cramping was early this morning. Last episode of bleeding was yesterday afternoon. Patient states the bleeding usually lasts around 1 hour. Denies abnormal discharge. Denies urinary symptoms. Denies concern for STIs. Patient also notes daily migraines for the past month. Patient notes a history of migraines but never this frequent. Patient states she is seeing her ANESTHESIA TECH who "doesn't know what is causing her symptoms but has sent her here because the patient noted worsening symptoms." She also states her ANESTHESIA TECH recommended an ultrasound today but they could not get her in. She also states that she is currently seeing her PCP for migraines and being treated with a topiramate and rizatriptan. States she has taken both today without relief. Denies vision changes and motor weakness. Describes headaches as "ache from the base of her neck all the way to her temples." Denies taking anything [id number] for pain relief. Patient states that she is getting intermittent nausea for the last month as well for which her PCP has given her Zofran. Denies taking any Zofran today. PSHx significant for tubal ligation in September 2018. Denies having any menstrual bleeding after having tubal until this past month. - History Of Current Complaint Chief Complaint: UCGU Stated Complaint: NAUSEA, PELVIC PAIN Hx Obtained From: Patient Hx Last Menstrual Period: 09/14 Pain Intensity: 6 Pain Scale Used: 0-10 Numeric - Allergies/Home Medications Allergies/Adverse Reactions: Allergies Allergy/AdvReac Type Severity Reaction Status Date / Time No Known Allergies Allergy Verified 05/04/19 13:22 Home Medications: Home Medications Topiramate [Topiramate ER 50 mg cap] 50 mg PO BID 05/04/19 [History Confirmed ] PMH/Surg Hx/FS Hx/Imm Hx Neurological History: Migraine - Surgical History Surgical History: Yes Surgery Procedure, Year, and Place: Cholecystectomy 05/2012 - Family History Known Family History: Positive: Other - anemia Negative: Cardiac Disease, Hypertension, Diabetes - Social History Alcohol Use: Occasionally Substance Use Type: None Substance Use Comment - Amount & Last Used: not recently Smoking Status (MU): Never Smoked Tobacco Type: Cigarettes Amount Used/How Often: 1/2 PPD Have You Smoked in the Last Year: No Household Exposure Type: Cigarettes - Immunization History Most Recent Influenza Vaccination: 01/26/18 Most Recent Tetanus Shot: up to date Most Recent Pneumonia Vaccination: None Vaccination Up to Date: Yes Review of Systems All Other Systems Reviewed And Are Negative: Yes Constitutional: Positive: Negative Respiratory: Positive: Negative Cardiovascular: Positive: Negative Gastrointestinal: Positive: Abdominal Pain - pelvic pain, Nausea. Negative: Vomiting, Diarrhea Genitourinary: Positive: Negative Musculoskeletal: Positive: Negative Neurological: Positive: Headache. Negative: Weakness, Paresthesia, Numbness Physical Exam - Summary Physical Exam Summary: Vital Signs Reviewed: Yes A+Ox3, no distress Eyes: Conjunctiva Clear, GOYO. EOM intact and full ENT: Hearing grossly normal, TM x 2 clear, moist, uvula midline, no exudate, no erythema Neck: Positive: Supple Respiratory: Positive: No respiratory distress, No accessory muscle use + CTA throughout no w/r Cardiovascular: RRR nl s1, s2 no m/r Abd: soft + BS +mild TTP of bilateral lower abdomen, no distention, no guarding Pelvic exam: normal external exam, cervix normal, no bleeding, minimal discharge , +tenderness during bimanual exam, no cervical motion tenderness Musculoskeletal Exam: ESPAÑA x 4 without difficulty Neurological: Positive: Alert, CN II-XII intact Psychological: Positive: age appropriate behavior Skin: Positive: no rash, no ecchymosis Vital Signs: Initial Vital Signs Temp 98.3 F 05/04/19 13:17 Pulse 81 05/04/19 13:17 Resp 18 05/04/19 13:17 BP 127/78 05/04/19 13:17 Pulse Ox 100 05/04/19 13:17 Lab Results 05/04/19 05/04/19 Range/Units 13:51 13:54 POC Urine Color Yellow POC Urine Clarity Clear POC Urine pH 5.5 (5-9) POC Ur Specif [place] >= 1.030 (1.010-1.030) POC Urine Protein Negative (Negative) POC Ur Glucose (UA) Negative (Negative) POC Urine Ketones Negative (Negative) POC Urine Blood Negative (Negative) POC Urine Nitrite Negative (Negative) POC Urine Bilirubin Negative (Negative) POC Urine Urobilinogen 0.2 (Negative) POC U Leukocyte Esteras Negative (Negative) POC Ur Test Negative (Negative) Diagnostics - Radiology transvaginal Radiology Interpretation Completed By: Radiologist Summary of Radiographic Findings: IMPRESSION: 1. HETEROGENEOUS UTERUS WITH PROMINENCE OF THE VASCULATURE ALONG THE BROAD LIGAMENTS BILATERALLY. 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 2. NO SONOGRAPHIC FEATURES OF TORSION. PLEASE NOTE THAT PARTIAL OR INTERMITTENT TORSION MAY BE SONOGRAPHICALLY NORMAL. Complaint Female Dx - Course Course Of Treatment: UA negative. Urine negative. Patient declined AFFIRM and gonorrhea/ chlamydia and trichomonas testing. Pelvic exam performed after verbal consent from patient. Patient received Zofran for nausea and Toradol for migraine here in the urgent care. She voiced feeling much better after given medications. Discussed nonspecific ultrasound findings that were suggestive of pelvic congestion syndrome with patient and instructed to follow up with ANESTHESIA TECH. I also provided the patient with referral for Dr. Hayes per Dr. Chatman's advice. Dr. Hayes specializes in pelvic congestion syndrome. Instructed to follow up with pcp again for migraines. Patient states she is going to also set up appt with neurology referral from her pcp. Instructed to continue with migraine medication until follow up. Instructed to go to ED with any new or worsening symptoms. Patient voiced understanding and agreed with treatment plan. - Differential Dx/Diagnosis Differential Diagnosis/HQI/PQRI: Endometriosis, Ovarian Cyst, Other - Pelvic Congestion Syndrome Provider Diagnosis: Abnormal vaginal bleeding, Pelvic pain, Migraine Discharge ED - Sign-Out/Discharge Documenting (check all that apply): Patient Departure All imaging exams completed and their final reports reviewed: Yes - Discharge Plan Condition: Stable Disposition: HOME Patient Education Materials: Pelvic Pain in Women (ED) Referrals: Vinicio Delgado DO [Primary Care Provider] - Rogelio Hayes MD [Medical Doctor] - Additional Instructions: Your transvaginal ultrasound findings were nonspecific but suggestive of pelvic congestion syndrome. It is recommended that you follow up with both your OBGYN and the referral listed below for further evaluation and treatment. Follow up with your primary care provider for further evaluation of your recurrent migraines as well. Go to the emergency room with any new or worsening symptoms. - Billing Disposition and Condition Condition: STABLE Disposition: Home
[2019-05-04] MEDS ORDERED: Ondansetron ODT TAB* 4 MG SL PRN (14:23)
[2019-05-04] MEDS ORDERED: Ketorolac *IM* INJ* 60 MG/2 ML VIAL IM ONE (14:24)
[2019-05-04] MEDS ORDERED: Ondansetron ODT TAB* 4 MG PO ONE (14:32)
[2019-05-04 15:59] VITALS: BP 110/70
== END 2019-05-04 15:40 | disposition home or self-care (01) ==
LOC: UCEAST 12:33
DX: N93.9 Abnormal uterine and vaginal bleeding, unspecified (principal); R10.2 Pelvic and perineal pain; G43.909 Migraine, unspecified, not intractable, without status migrainosus; R93.89 Abnormal findings on diagnostic imaging of other specified body structures; Z79.899 Other long term (current) drug therapy
CPT/HCPCS: 76830; 81003; 84702; 96372; 99212; A9270-GY; G0463; J1885

== ENCOUNTER 2020-07-03 07:30 | Inpatient (IN) ==
[2020-07-08] MEDS ORDERED: Lactated Ringers 1000 ml BAG 1,000 ML IV SCH (06:00)
[2020-07-08] MEDS ORDERED: Buffered Lidocaine 1% SYRIN 1 ml INTRADERM ONE (06:00)
[2020-07-08] MEDS ORDERED: ceFAZolin 1 GM ADVAN 1 GM ADDV.VIAL IVPB ONE (06:23)
[2020-07-08] MEDS ORDERED: ceFAZolin 2 GM PREMIX 2 GM/50 ML BAG ONE (06:23)
[2020-07-08] MEDS ORDERED: Heparin 5000 UNITS/ML 1 mL VIAL ONE (06:23)
[2020-07-08] MEDS ORDERED: fentaNYL 250 mcg/5 ml 50 MCG/ML 5 ml VIAL (250 MCG) ONE (06:57)
[2020-07-08] MEDS ORDERED: Rocuronium 50 mg VIAL 10 mg/ml 5 ml VIAL (50 mg) ONE ×2 (06:57→07:54)
[2020-07-08] MEDS ORDERED: Midazolam 2 mg/2 ml VIAL 1 mg/ml 2 ml VIAL (2 mg) ONE (06:57)
[2020-07-08] MEDS ORDERED: Bupivacaine 0.25% EPI 200,000 30 ML SDV ONE ×2 (07:09→08:01)
[2020-07-08] MEDS ORDERED: Methylene Blue 0.5 % 50 MG/10 ML AMP IV ONE (07:09)
[2020-07-08] MEDS ORDERED: HYDROmorphone 1 MG/1 ML SYRINGE ONE (08:00)
[2020-07-08] MEDS ORDERED: Ondansetron 4 mg VIAL 2 MG/ML 2 ml VIAL ONE ×2 (08:30→11:16)
[2020-07-08] MEDS ORDERED: Dexamethasone IV 4 MG/ML VIAL 1 ml VIAL ONE (08:30)
[2020-07-08] MEDS ORDERED: Acetaminophen IV 1 GM/100ML 1,000 MG/100 ML VIAL IVPB ONE (08:51)
[2020-07-08] MEDS ORDERED: Naloxone 0.4 mg VIAL 0.4 mg/ml 1 ml VIAL IV PRN (08:51)
[2020-07-08] MEDS ORDERED: diPHENhydraMINE IV 50 MG/ML 1 ml VIAL (BENADRYL) IV PRN (08:51)
[2020-07-08] MEDS ORDERED: Acetaminophen IV 1 GM/100ML 100 ML ONE (09:36)
[2020-07-08] MEDS ORDERED: fentaNYL 100 mcg/2 ml 50 MCG/ML VIAL ONE ×2 (09:50→11:00)
[2020-07-08] MEDS ORDERED: HYDROmorphone 1 MG/1 ML SYRINGE IV SLOW PU PRN (10:25)
[2020-07-08] MEDS ORDERED: diPHENhydraMINE IV 50 MG/ML 1 ml VIAL (BENADRYL) SLOW PUSH PRN (10:25)
[2020-07-08] MEDS: fentaNYL 100 mcg/2 ml 50 MCG/ML VIAL IV PRN ×2 (11:00→11:18)
[2020-07-08] MEDS: Ondansetron 4 mg VIAL 2 MG/ML 2 ml VIAL IV PRN ×2 (11:16→20:02)
[2020-07-08] MEDS ORDERED: Lidocaine 2% PF 5 ML VIAL ONE (11:49)
[2020-07-08] MEDS ORDERED: Propofol 10 MG/ML 20 ML BTL ONE (11:49)
[2020-07-08] MEDS ORDERED: Albuterol HFA INHALER 8 gm MDI INH PRN (12:02)
[2020-07-08] MEDS: Lactated Ringers 1000 ml BAG 1,000 ML IV SCH ×2 (12:05→19:21)
[2020-07-08] MEDS: Heparin 5000 UNITS/ML 1 mL VIAL SUBCUT SCH ×2 (14:07→22:16)
[2020-07-08] MEDS: Famotidine IV 10 MG/ML 2 ml VIAL (20 mg) IV SLOW PU SCH (22:17)
[2020-07-08] MEDS: HYDROmorphone 0.5 MG/0.5 ML SYRINGE IV SLOW PU PRN (22:20)
[2020-07-09] MEDS: Lactated Ringers 1000 ml BAG 1,000 ML IV SCH ×2 (02:06→09:50)
[2020-07-09] MEDS: Heparin 5000 UNITS/ML 1 mL VIAL SUBCUT SCH ×2 (05:29→14:22)
[2020-07-09] MEDS: HYDROmorphone 0.5 MG/0.5 ML SYRINGE IV SLOW PU PRN (05:48)
[2020-07-09] MEDS: Famotidine IV 10 MG/ML 2 ml VIAL (20 mg) IV SLOW PU SCH (08:38)
[2020-07-09] MEDS ORDERED: D5W 1/2 NS KCl 20 meq 1000 ml 1,000 ML IV SCH (11:00)
[2020-07-09] MEDS ORDERED: HYDROcodone/ACET. 7.5/325 LIQ 15 ML UDC PO PRN (12:00)
[2020-07-09 15:36] VITALS: BP 121/68
== END 2020-07-09 17:30 | disposition home or self-care (01) | DRG 403 ==
LOC: AA 07-08 05:39 → SSU 07-08 10:25
PROVIDERS: ADMIT Surgery; ATTEND Surgery